=== PATIENT | male | born 1965 | race Caucasian/White ===

== ENCOUNTER 2022-10-09 09:28 | Inpatient (IN) | payer MEDICAID, SELFPAY ==
[2022-10-09] VITALS (212 sets, daily range): BP systolic 58–129; BP diastolic 31–106; PULSE 64–165; RESP 11–35; TEMP 36.5–38.4; O2SAT 86–96
--- NOTE | 2022-10-09 10:00 | DI.RAD_ITS ---
Exam(s) XR CHEST 2V PA LATERAL EXAM: XR CHEST 2V PA LATERAL CLINICAL HISTORY: fever. TECHNIQUE: 2D digital imaging was performed. COMPARISON: No exams were available for comparison FINDINGS: 2 views: Heart size is normal. The mediastinum is not widened. There is a large area of infiltrate in the right lower lobe. No associated pleural effusion evident. The opposite-left lung is clear. IMPRESSION: Large area of infiltrate in the right lower lobe. No obvious pleural effusion. Follow-up to [facility] ion recommended. DATA REPOSITORY: RADIATION DOSE DELIVERED:
--- NOTE | 2022-10-09 10:03 | NUR.NOTE ---
Nursing Note: Assumed care of patient at this time; no nurse to nurse report received
--- NOTE | 2022-10-09 10:09 | ED.GENADUL_ITS ---
Discharge Plan Disposition Patient Disposition: Admit to [facility] Discharge Details Chief Complaint: Fever Clinical Impression: Sepsis, Septic shock, Atrial fibrillation with rapid ventricular response, Hyponatremia, Thrombocytopenia, Acute kidney injury, Pneumonia Admit Date/Time: 10/09/22 13:02 Admit Provider: Tara Weiss Attending Provider: Tara Weiss Primary Care Provider: None,None ED Provider: Lisa Saucedo Medical Decision Making 56yo M denies prior medical conditions including cardiac history, diabetes, lung problems/COPD/ashtma (however poor historian) presenting with patient stated concern for dehydration; noted urine to be dark today and had N/V/D 5 days ago which resolved 2 days ago. Good PO intake and urine output. Non-toxic appearing on arrival, ambulated easily independently into the ED. Febrile to 38.1, vital signs and physical exam otherwise reassuring, no abdominal tenderness (would not pursue imaging/CT), appears well hydrated. Given 1L IVFB. Low suspicion for sepsis on arrival. O2 sat borderline low at 90% (patient is a smoker); denies respiratory symptoms however given fever CXR ordered and independently reviewed, shows right sided infiltrate consistent with pneumonia on my view, agree with radiology read below. Started IV ceftriaxone in the ED. Ambulatory pulse ox with no desaturations. On repeat vital signs slightly tachycardiac at 99; now meeting SIRS/sepsis criteria. Additional 1L IVFB (total 20cc/kg) ordered, blood cultures and lactic added. CBC & CMP with evidence of multiorgan involvement; hyponatremia (128), hyperglycemia in 200's, thrombocytopenia (60), elevated Cr 2.4 (unknown baseline, suspect acute kidney injury). No acidosis, normal bicarb, however gap 14.8. Lactic mildly elevated at 2.7, procal 5.6. Coags normal. Discussed lab findings and imaging with patient and girlfriend at bedside; GF reports patient had tubes in his right chest for a lung infection 1 year ago, patient agrees. He reports he used to have diabetes, not currently medicated. Denies any history of kidney problems. Abdomen remains soft and entirely non- tender, patient continues to report feeling good but appears somewhat diaphoretic, no longer well-appearing. Borderline hypotensive with SBP in 80's. Received a total of 3L of IVF, upon completion of 3rd bolus MAP in high 60's to low 70's. Fluid responsive, would not initiate pressors or central access at this time though should patient may ultimately require should he continue to deteriorate. Discussed with hospitalist; patient accepted to ICU. Broadening antibiotics to doxycycline/zosyn. On reassessment patient in afib with RVR to 130's on monitor; denies chest pain or shortness of breath, now reports history of afib in the past (not on medication currently). EKG afib with rate in 130's, some ST depression in V3-V6. Posterior EKG performed, no ST elevations, no sequela of occluisve NE. Troponins ordered, Dr. Weiss updated. Patient transfered to the unit. Imaging Data Radiologic Study: Imaging: X-Ray Radiologist's impression: IMPRESSION: Focal right lower lobe consolidation consistent with acute bacterial pneumonia. Follow-up to resolution is recommended as clinically warranted. Lab Data Lab results reviewed: Yes I reviewed the patient's lab results. Labs: 10/09/22 12:10 Blood Blood Culture - Pending 10/09/22 11:55 Blood Blood Culture - Pending Laboratory Tests Range/Units 10/09/22 10/09/22 10/09/22 10:20 10:20 10:20 WBC (4.4-10.8) 10^3/uL 15.61 H RBC (4.36-5.78) 10^6/uL 4.82 Hgb (13.5-17.5) g/dL 15.0 Hct (40.0-50.0) % 42.4 MCV (80-95) fL 88 MCH (27.0-33.0) pg 31.1 MCHC (32.0-36.0) % 35.4 RDW (11.8-14.1) % 12.4 Plt Count (130-400) 10^3/uL 60 L MPV (8.0-11.0) fL Immature Gran % 0.0 Neutrophils % 91.0 Band Neutrophils % 1 Lymphocytes % 4.0 Monocytes % 4.0 Eosinophils % 0.0 Basophils % 0.0 Nucleated RBC % (0.0-0.3) % 0.0 Absolute Neutrophils (1.2-6.7) 10^3/uL 14.36 H Absolute Lymphocytes (1.2-3.4) 10^3/uL 0.62 L Absolute Monocytes (0.1-0.8) 10^3/uL 0.62 Absolute Eosinophils (0.0-0.7) 10^3/uL 0.00 Absolute Basophils (0.0-0.2) 10^3/uL 0.00 RBC Morphology Normal PT (9.3-11.0) sec 10.7 INR (0.9-1.1) 1.1 APTT (21.5-31.9) sec 31.2 VBG pH (7.31-7.41) VBG pCO2 (41-51) mmHg VBG pO2 mmHg VBG HCO3 (23-28) mmol/L VBG Total CO2 (24-29) mmol/L VBG O2 Saturation % VBG Base Excess (-2-3) mmol/L VBG Lactate (0.6-1.4) mmol/L Sodium (136-145) mmol/L 128 L Potassium (3.5-5.1) mmol/L 3.2 L Chloride (98-107) mmol/L 90 L Carbon Dioxide (21.0-32.0) mmol/L 23.2 Anion Gap (3-11) mmol/L 14.8 H BUN (7-18) mg/dL 27 H Creatinine (0.70-1.30) mg/dL 2.4 H Est GFR (CKD-EPI 2020) (mL/min/1.73m2) 31.09 Glucose (74-106) mg/dL 215 H Calcium (8.5-10.1) mg/dL 7.7 L Total Bilirubin (0.2-1.0) mg/dL 0.7 AST (15-37) U/L 84 H ALT (16-63) U/L 77 H Alkaline Phosphatase (46-116) U/L 92 Troponin I (<or=60) ng/L Total Protein (6.4-8.2) g/dL 7.7 Albumin (3.4-5.0) g/dL 2.6 L Procalcitonin ng/mL Urine Color (Yellow) Urine Clarity (Clear) Urine pH (5-8) Ur Specific [place] (1.005-1.025) Urine Protein (Negative) mg/dL Urine Ketones (Negative) mg/dL Urine Blood (Negative) Urine Nitrite (Negative) Urine Bilirubin (Negative) Urine Urobilinogen (Up to 0.2) mg/dL Ur Leukocyte Esterase (Negative) Urine RBC (0-2) HPF Urine WBC (0-5) HPF Ur Epithelial Cells (Negative) HPF Urine Crystals (Negative) HPF Urine Bacteria (Negative) HPF Urine Casts (Negative) LPF Urine Mucus (Negative) Ur Culture Indicated? Urine Glucose (Negative) mg/dL Range/Units 10/09/22 10/09/22 10/09/22 10:20 11:29 11:55 WBC (4.4-10.8) 10^3/uL RBC (4.36-5.78) 10^6/uL Hgb (13.5-17.5) g/dL Hct (40.0-50.0) % MCV (80-95) fL MCH (27.0-33.0) pg MCHC (32.0-36.0) % RDW (11.8-14.1) % Plt Count (130-400) 10^3/uL MPV (8.0-11.0) fL Immature Gran % Neutrophils % Band Neutrophils % Lymphocytes % Monocytes % Eosinophils % Basophils % Nucleated RBC % (0.0-0.3) % Absolute Neutrophils (1.2-6.7) 10^3/uL Absolute Lymphocytes (1.2-3.4) 10^3/uL Absolute Monocytes (0.1-0.8) 10^3/uL Absolute Eosinophils (0.0-0.7) 10^3/uL Absolute Basophils (0.0-0.2) 10^3/uL RBC Morphology PT (9.3-11.0) sec INR (0.9-1.1) APTT (21.5-31.9) sec VBG pH (7.31-7.41) VBG pCO2 (41-51) mmHg VBG pO2 mmHg VBG HCO3 (23-28) mmol/L VBG Total CO2 (24-29) mmol/L VBG O2 Saturation % VBG Base Excess (-2-3) mmol/L VBG Lactate (0.6-1.4) mmol/L 2.5 H* Sodium (136-145) mmol/L Potassium (3.5-5.1) mmol/L Chloride (98-107) mmol/L Carbon Dioxide (21.0-32.0) mmol/L Anion Gap (3-11) mmol/L BUN (7-18) mg/dL Creatinine (0.70-1.30) mg/dL Est GFR (CKD-EPI 2020) (mL/min/1.73m2) Glucose (74-106) mg/dL Calcium (8.5-10.1) mg/dL Total Bilirubin (0.2-1.0) mg/dL AST (15-37) U/L ALT (16-63) U/L Alkaline Phosphatase (46-116) U/L Troponin I (<or=60) ng/L Total Protein (6.4-8.2) g/dL Albumin (3.4-5.0) g/dL Procalcitonin ng/mL 5.6 Urine Color (Yellow) Dark Yellow Urine Clarity (Clear) Cloudy Urine pH (5-8) 5.5 Ur Specific [place] (1.005-1.025) >= 1.030 H Urine Protein (Negative) mg/dL >=300 H Urine Ketones (Negative) mg/dL 15 H Urine Blood (Negative) Large H Urine Nitrite (Negative) Negative Urine Bilirubin (Negative) Moderate H Urine Urobilinogen (Up to 0.2) mg/dL 1.0 H Ur Leukocyte Esterase (Negative) Negative Urine RBC (0-2) HPF 10-20 H Urine WBC (0-5) HPF Negative Ur Epithelial Cells (Negative) HPF Rare Urine Crystals (Negative) HPF Negative Urine Bacteria (Negative) HPF Negative Urine Casts (Negative) LPF 20-50 Fine Granular Urine Mucus (Negative) Negative Ur Culture Indicated? No Urine Glucose (Negative) mg/dL 100 H Range/Units 10/09/22 10/09/22 11:55 13:10 WBC (4.4-10.8) 10^3/uL RBC (4.36-5.78) 10^6/uL Hgb (13.5-17.5) g/dL Hct (40.0-50.0) % MCV (80-95) fL MCH (27.0-33.0) pg MCHC (32.0-36.0) % RDW (11.8-14.1) % Plt Count (130-400) 10^3/uL MPV (8.0-11.0) fL Immature Gran % Neutrophils % Band Neutrophils % Lymphocytes % Monocytes % Eosinophils % Basophils % Nucleated RBC % (0.0-0.3) % Absolute Neutrophils (1.2-6.7) 10^3/uL Absolute Lymphocytes (1.2-3.4) 10^3/uL Absolute Monocytes (0.1-0.8) 10^3/uL Absolute Eosinophils (0.0-0.7) 10^3/uL Absolute Basophils (0.0-0.2) 10^3/uL RBC Morphology PT (9.3-11.0) sec INR (0.9-1.1) APTT (21.5-31.9) sec VBG pH (7.31-7.41) 7.41 VBG pCO2 (41-51) mmHg 34 L VBG pO2 mmHg 42 VBG HCO3 (23-28) mmol/L 22 L VBG Total CO2 (24-29) mmol/L 19 L VBG O2 Saturation % 78 VBG Base Excess (-2-3) mmol/L -3 L VBG Lactate (0.6-1.4) mmol/L Sodium (136-145) mmol/L Potassium (3.5-5.1) mmol/L Chloride (98-107) mmol/L Carbon Dioxide (21.0-32.0) mmol/L Anion Gap (3-11) mmol/L BUN (7-18) mg/dL Creatinine (0.70-1.30) mg/dL Est GFR (CKD-EPI 2020) (mL/min/1.73m2) Glucose (74-106) mg/dL Calcium (8.5-10.1) mg/dL Total Bilirubin (0.2-1.0) mg/dL AST (15-37) U/L ALT (16-63) U/L Alkaline Phosphatase (46-116) U/L Troponin I (<or=60) ng/L < 50 Total Protein (6.4-8.2) g/dL Albumin (3.4-5.0) g/dL Procalcitonin ng/mL Urine Color (Yellow) Urine Clarity (Clear) Urine pH (5-8) Ur Specific [place] (1.005-1.025) Urine Protein (Negative) mg/dL Urine Ketones (Negative) mg/dL Urine Blood (Negative) Urine Nitrite (Negative) Urine Bilirubin (Negative) Urine Urobilinogen (Up to 0.2) mg/dL Ur Leukocyte Esterase (Negative) Urine RBC (0-2) HPF Urine WBC (0-5) HPF Ur Epithelial Cells (Negative) HPF Urine Crystals (Negative) HPF Urine Bacteria (Negative) HPF Urine Casts (Negative) LPF Urine Mucus (Negative) Ur Culture Indicated? Urine Glucose (Negative) mg/dL HPI General Mode of arrival: ambulatory . Date/Time Provider Initiated Documentation: 10/09/22 10:06 . Limitations to Documentation: no limitations . Information obtained by: patient . HPI Narrative: 56yo previously healthy male presenting with concern for dehydration. Reports N/V/D 5 days ago which lasted for 3 days. No vomiting or diarrhea in the past 48 hours. Mild diffuse abdominal pain, crampy, no alleviating or aggravating factors. Has been eating and drinking normally. Today urine was dark, prompting presentation to the ED. Reports fever at home, unsure how high. Denies chest pain, shortness of breath, LE edema, bloody vomitus or stool, lightheadedness, syncope, or other concerns. Related Data Home Medications Medication Instructions Recorded Confirmed Unknown [No Known Home Meds] 10/09/22 10/09/22 Allergies Allergy/AdvReac Type Severity Reaction Status Date / Time codeine Allergy Unknown Other (See Unverified 10/09/22 14:05 Comment) General Stated Complaint: Fever ORIANA: 3 Review of Systems Narrative: see HPI PFSH All Active Problems (Updated 10/09/22 @ 14:52 by Lisa Saucedo MD) Sepsis (Acute) Septic shock (Acute) Atrial fibrillation with rapid ventricular response (Acute) Hyponatremia (Acute) Thrombocytopenia (Chronic) Acute kidney injury (Acute) Pneumonia (Acute) Social History Smoking/Tobacco Use Status: Current every day Smoking risk assessment performed?: Yes Housing: house Do you feel safe at home: Yes Do you feel safe in your relationship?: Yes Exam Narrative Exam Narrative: General: Alert, well appearing, well nourished, in no acute distress. Head: Normocephalic, atraumatic Neck: Trachea midline, Neck supple. ENT: MMM. No oropharygeal lesions or exudate. Cardiac: RRR, no murmurs appreciated Resp: No respiratory distress. CTAB. Abd: Soft, non-distended, nontender : No suprapubic tenderness. No CVA tenderness. Extremities: No deformities. No peripheral edema. Neurologic: GCS 15. Moves all extremities freely against gravity Course Vital Signs Vital signs: Vital Signs Temperature 38.4 C H 10/09/22 09:33 Pulse 64 10/09/22 09:33 Respiratory Rate 20 10/09/22 09:33 Blood Pressure 100/53 L 10/09/22 09:33 Pulse Oximetry 90 L 10/09/22 09:33 Temperature 38.4 C H 10/09/22 09:33 Temperature Source Oral 10/09/22 09:33 Pulse 64 10/09/22 09:33 Respiratory Rate 20 10/09/22 09:33 Blood Pressure 100/53 L 10/09/22 09:33 Blood Pressure Position Sitting 10/09/22 09:33 Pulse Oximetry 90 L 10/09/22 09:33 Oxygen Delivery Method Room Air 10/09/22 09:33 Oxygen Flow Rate 0 10/09/22 09:33 Pain Level 5 10/09/22 09:33 Critical Care Time Critical Care Time Critical Care Time: Yes Total Critical Care Time: 34 Attestation: Due to a high probability of clinically significant, life threatening deterioration, the patient required my highest level of preparedness to intervene emergently and I personally spent this critical care time directly and personally managing the patient. This critical care time included obtaining a history; examining the patient; pulse oximetry; ordering and review of studies; arranging urgent treatment with development of a management plan; evaluation of patient's response to treatment; frequent reassessment; and, discussions with other providers. This critical care time was performed to assess and manage the high probability of imminent, life-threatening deterioration that could result in multi-organ failure. It was exclusive of separately billable procedures.
[2022-10-09] MEDS: Acetaminophen 500 MG TAB 1000 MG PO (10:16)
[2022-10-09] MEDS: Normal Saline 1,000 ML 1000 ML IV ×3 (10:20→12:22)
[2022-10-09 10:30] LABS: HCT 42.4 % (40.0-50.0); MCH 31.1 pg (27.0-33.0); MCHC 35.4 % (32.0-36.0); MCV 88 fL (80-95); RBC 4.82 10^6/uL (4.36-5.78); RDW 12.4 % (11.8-14.1); RDW-SD 40.1 fL; WBC 15.61 10^3/uL (4.4-10.8)
[2022-10-09 10:43] LABS: ALT 77 U/L (16-63); AST 84 U/L (15-37); Albumin 2.6 g/dL (3.4-5.0); Alkaline Phosphatase 92 U/L (46-116); Anion Gap 14.8 mmol/L (3-11); BUN 27 mg/dL (7-18); Bilirubin, Total 0.7 mg/dL (0.2-1.0); CO2 23.2 mmol/L (21.0-32.0); CREATININE 2.4 mg/dL (0.70-1.30); Calcium 7.7 mg/dL (8.5-10.1); Chloride 90 mmol/L (98-107); Estimated GFR 31.09 (mL/min/1.73m2); Glucose 215 mg/dL (74-106); Potassium 3.2 mmol/L (3.5-5.1); Sodium 128 mmol/L (136-145); Total Protein 7.7 g/dL (6.4-8.2)
--- NOTE | 2022-10-09 10:46 | DI.VRAD_ITS ---
Addendum created by Braden Horn MD on 10/09/2022 10:48:34 AM EDT: THIS REPORT CONTAINS FINDINGS THAT MAY BE CRITICAL TO PATIENT CARE. The findings were verbally communicated via telephone conference with Lisa Mata at 10:48 AM EDT on 10/09/2022. The findings were acknowledged and understood. Initial report created on 10/09/2022 10:45:52 AM EDT: PROCEDURE INFORMATION: Exam: XR Chest Exam date and time: 10/09/2022 10:30 AM Age: 56 years old Clinical indication: Fever TECHNIQUE: Imaging protocol: Radiologic exam of the chest. Views: 2 views. COMPARISON: No relevant prior studies available. FINDINGS: Lungs: Focal consolidation in the right lower lobe. Pleural spaces: No pneumothorax or large pleural effusion. Heart/Mediastinum: Unremarkable. No cardiomegaly. Bones/joints: Degenerative changes of the spine. IMPRESSION: Focal right lower lobe consolidation consistent with acute bacterial pneumonia. Follow-up to resolution is recommended as clinically warranted. Dictated and Authenticated by: Braden Horn MD. Ordering:ISREAL Gonzalez MD
[2022-10-09] MEDS: cefTRIAXone 1 GM/50 ML BAG IVPB (10:50)
[2022-10-09 10:53] LABS: Absolute Lymphocyte Count 0.62 10^3/uL (1.2-3.4); Absolute Monocyte Count 0.62 10^3/uL (0.1-0.8); Absolute Neutrophil Count 14.36 10^3/uL (1.2-6.7); Bands % 1; Diff Comment Manual Differential; Platelet Count 60 10^3/uL (130-400); RBC Morphology Normal
--- NOTE | 2022-10-09 11:21 | NUR.NOTE ---
Nursing Note: Patient ambulated in hallway with no respiratory complaints; oxygen sat 93% during ambulation. MD notified.
--- NOTE | 2022-10-09 11:38 | NUR.NOTE ---
Nursing Note: Phlebotomy at bedside for re-draw of lactate and draw of blood cultures. notified of patient's last BP of .
[2022-10-09 11:43] LABS: Bilirubin Moderate (Negative); Blood Large (Negative); Clarity Cloudy (Clear); Glucose 100 mg/dL (Negative); Ketones 15 mg/dL (Negative); Leukocyte Esterase Negative (Negative); Nitrite Negative (Negative); Specific Gravity >= 1.030 (1.005-1.025); pH 5.5 (5-8)
[2022-10-09 12:05] LABS: Lactate 2.5 mmol/L (0.6-1.4)
[2022-10-09 12:06] LABS: INR 1.1 (0.9-1.1); PTT Activated 31.2 sec (21.5-31.9); Prothrombin Time 10.7 sec (9.3-11.0)
[2022-10-09 12:07] LABS: Bacteria Negative HPF (Negative); C & S Indicated? No; Crystals Negative HPF (Negative); Epithelial Cells Rare HPF (Negative); Mucus Negative (Negative); WBC Negative HPF (0-5)
[2022-10-09 12:17] LABS: Procalcitonin 5.6 ng/mL
--- NOTE | 2022-10-09 12:30 | RT.EKG_ITS ---
APPROVED REPORT Exam: Resting ECG Reason for Exam: afib Patient Location: E HR:132 bpm ECG Measurements Heart Rate 132 AXIS CA [id number] P [id number] QRSd 80 QRS 52 QT 299 T 252 QTc 444 Conclusion Atrial fibrillation...V-rate 91-167, irreg A-activity ST depressions in V3-V6
--- NOTE | 2022-10-09 12:30 | RT.EKG_ITS ---
APPROVED REPORT Exam: Resting ECG Reason for Exam: tachy Patient Location: E HR:135 bpm ECG Measurements Heart Rate 135 AXIS PA [id number] P [id number] QRSd 85 QRS 47 QT 309 T 240 QTc 463 Conclusion Atrial fibrillation...V-rate 106-156, irreg A-activity
[2022-10-09] MEDS: DOXYCYCLINE 100 MG in Normal Saline 100 ML IVPB ×2 (13:15→23:41)
[2022-10-09 13:30] LABS: pCO2 (Venous) 34 mmHg (41-51); pH (Venous) 7.41 (7.31-7.41); pO2 (Venous) 42 mmHg
[2022-10-09 13:31] LABS: BE (Venous) -3 mmol/L (-2-3); HCO3 (Venous) 22 mmol/L (23-28); O2 Sat (Venous) 78 %; TCO2 (Venous) 19 mmol/L (24-29)
--- NOTE | 2022-10-09 13:33 | HPE_ITS ---
Date of service: 10/09/22 Time of Service: 13:34 Assessment and Plan Assessment and plan (1) Septic shock: Status: Acute Assessment and plan: Due to pneumonia, present on admission. Cover with doxycycline and zosyn. Obtain pneumonia studies. Continue IVF, start on vasopressor - I am choosing phenylephrine given co- existence of rapid Afib. C/s general surgery for central line placement. (2) Aspiration pneumonia: Status: Acute Assessment and plan: As above Abx: doxycycline/zosyn. Suspect that the aspiration event happened due to vomiting due to the gastroenteritis the patient had described. (3) Atrial fibrillation with rapid ventricular response: Status: Acute Assessment and plan: In setting of septic shock. Treat infection. We can try using digoxin since BP cannot tolerate metoprolol. Vasopressor-stauffer, I have picked phenylephrine to diminish the effect on HR. (4) Lactic acidosis: Status: Acute Assessment and plan: In setting of septic shock. Trend. (5) Acute kidney injury: Status: Acute Assessment and plan: In setting of septic shock. I do not know what the patient's baseline Cr is, but it has already started to improve. Monitor w/ IV hydration. Check bladder scans. Consider abebe catheter. (6) Type 2 diabetes mellitus: Status: Acute Assessment and plan: Check A1C. Cover with SSI. (7) Thrombocytopenia: Status: Acute Assessment and plan: I am not sure about the patient's baseline platelet count. Will avoid chemical DVT ppx. Will check B12 level. Could be sequela of sepsis. (8) Hyponatremia: Status: Acute Assessment and plan: In setting of dehydration. Sodium has already improved from 128 to 132 w/ IVF, which we will continue for now. (9) Hypokalemia: Status: Acute Assessment and plan: Replete; replete magnesium. (10) Hypomagnesemia: Status: Acute Assessment and plan: Replete. (11) Discharge planning issues: Status: Acute Assessment and plan: Full code Admit to the ICU. Total Critical Care Time 60 minutes. (12) DVT prophylaxis: Status: Acute Assessment and plan: SCDs. Avoid chemical DVT ppx in setting of thrombocytopenia. History of Present Illness History of Present Illness Chief Complaint: feeling dehydrated, not feeling well Narrative: Mr Merlos is a 56 year old male w/ PMHx of NIDDM2, Afib, GERD, obesity with BMI of 30.9 kg/m2, depression, not on any medications at this time (though he should be taking omeprazole, duloxetine, and aripiprazole) who presented to [facility] stating he was feeling unwell and dehydrated. He states that for about 4-5 days he had abdominal pain, nausea, vomiting, and diarrhea, which he had blamed on food poisoning, but n/v/d and abdominal pain had resolved yesterday. He has noticed a generally poorer UOP and darker urine. The patient was still noticing that he was sweating, and was feeling off balance. On arrival to the ER, he is febrile to 38.4. His ER workup revealed a leucocytosis of 15, a platelet count of 60, a creatinine of 2.4 (no prior), an anion gap of 14.8 with pH of 7.4, blood sugar of 215, and evidence of ketones in the urine. He is hyponatremic and hypokalemic His BP was borderline in the ED despite receiving 2.5 L of IVF. His lactate was 2.5. His CXR revealed RLL pneumonia, presumably due to aspiration. He was initiated on initially ceftriaxone, then upgraded to zosyn + doxycycline. His O2 sat was 90% on RA. He did go into rapid Afib with HR of 130s in the ER. When he received 2.5 mg of IV lopressor, his MAP went down to 58-60. He is being initiated on phenylephrine. Hospitalist admission to the ICU was requested. The patient does not know the name of his PCP. He goes to the [facility]. His pharmacy is [facility] in [facility]. Review of Systems All systems reviewed & are unremarkable except as noted in HPI and below PFSH All Active Problems (Updated 10/09/22 @ 16:47 by Tara Weiss MD) Hypomagnesemia (Acute) Depression (Chronic) GERD (gastroesophageal reflux disease) (Chronic) Lactic acidosis (Acute) Discharge planning issues (Acute) DVT prophylaxis (Acute) Hypokalemia (Acute) Type 2 diabetes mellitus (Acute) Aspiration pneumonia (Acute) Sepsis (Acute) Septic shock (Acute) Atrial fibrillation with rapid ventricular response (Acute) Hyponatremia (Acute) Thrombocytopenia (Acute) Acute kidney injury (Acute) Pneumonia (Acute) Surgical History (Updated 10/09/22 @ 16:37 by Tara Weiss MD) H/O hand surgery bilateral S/P appendectomy S/P right inguinal hernia repair Social History (Updated 10/09/22 @ 16:38 by Tara Weiss MD) Smoking/Tobacco Use Status: Current every day Tobacco Type: cigarettes Smoking packs per day: 1 Smoking cigarettes per day: 20.0 Years smoked: 46 Smoking pack- years: 46.00 Counseling given: provider counseling, support medications, counseling >3 minutes and patient declined Smoking risk assessment performed?: Yes Alcohol Intake: former Drug use: Occasionally Substance use type: marijuana Housing: house Do you feel safe at home: Yes Do you feel safe in your relationship?: Yes Meds Allergies and Home Medications Allergies Allergy/AdvReac Type Severity Reaction Status Date / Time codeine Allergy Unknown Other (See Unverified 10/09/22 14:05 Comment) Home Medications Medication Instructions Recorded Confirmed Type Unknown [No Known Home Meds] 10/09/22 10/09/22 History Exam Narrative Exam Narrative: General: Pleasant forgetful middle-aged male who is A&Ox3, laying comfortably in bed, on RA, [place] Neurological: A&Ox3, [place], no focal deficits Psychiatric: Appears withdrawn, flat affect Skin: tinea pedis B, excoriations R dorsum of the foot, well healed HEENT: Atraumatic, normocephalic, EOMI, MMM, clear oropharynx, no submandibular or cervical lymphadenopathy, no goiter or JVD Cardiovascular: RRR, no m/r/g Lungs: Expiratory wheezing B Gastrointestinal: soft, nontender, nondistended Genitourinary: deferred Extremities: no edema BLEs, 1+ pedal pulses B, no c/c, tinea pedis Results Imaging Imaging Studies: CXR: Large area of infiltrate in the right lower lobe.? No obvious pleural effusion.? Follow-up to resolution recommended. EKG #1: Afib w/ RVR, HR 132, inferolateral T wave inversions and borderline ST depressions. EKG #2: Afib w/ RVR, HR 134, inferolateral T wave inversions still present; ST depressions are not seen in the precordial leads. Labs 10/09/22 10:20 10/09/22 15:25 Labs: Laboratory Results - last 24 hr 07/10/09/22 10/09/22 10:20 10:20 10:20 WBC 15.61 H RBC 4.82 Hgb 15.0 Hct 42.4 MCV 88 MCH 31.1 MCHC 35.4 RDW 12.4 Plt Count 60 L MPV Immature Gran % 0.0 Neutrophils % 91.0 Band Neutrophils % 1 Lymphocytes % 4.0 Monocytes % 4.0 Eosinophils % 0.0 Basophils % 0.0 Nucleated RBC % 0.0 Absolute Neutrophils 14.36 H Absolute Lymphocytes 0.62 L Absolute Monocytes 0.62 Absolute Eosinophils 0.00 Absolute Basophils 0.00 RBC Morphology Normal PT 10.7 INR 1.1 APTT 31.2 VBG pH VBG pCO2 VBG pO2 VBG HCO3 VBG Total CO2 VBG O2 Saturation VBG Base Excess VBG Lactate Sodium 128 L Potassium 3.2 L Chloride 90 L Carbon Dioxide 23.2 Anion Gap 14.8 H BUN 27 H Creatinine 2.4 H Est GFR (CKD-EPI 2020) 31.09 Glucose 215 H Calcium 7.7 L Total Bilirubin 0.7 AST 84 H ALT 77 H Alkaline Phosphatase 92 Total Protein 7.7 Albumin 2.6 L Procalcitonin Urine Color Urine Clarity Urine pH Ur Specific [place] Urine Protein Urine Ketones Urine Blood Urine Nitrite Urine Bilirubin Urine Urobilinogen Ur Leukocyte Esterase Urine RBC Urine WBC Ur Epithelial Cells Urine Crystals Urine Bacteria Urine Casts Urine Mucus Ur Culture Indicated? Urine Glucose 10/09/22 10/09/22 10/09/22 10:20 11:29 11:55 WBC RBC Hgb Hct MCV MCH MCHC RDW Plt Count MPV Immature Gran % Neutrophils % Band Neutrophils % Lymphocytes % Monocytes % Eosinophils % Basophils % Nucleated RBC % Absolute Neutrophils Absolute Lymphocytes Absolute Monocytes Absolute Eosinophils Absolute Basophils RBC Morphology PT INR APTT VBG pH VBG pCO2 VBG pO2 VBG HCO3 VBG Total CO2 VBG O2 Saturation VBG Base Excess VBG Lactate 2.5 H* Sodium Potassium Chloride Carbon Dioxide Anion Gap BUN Creatinine Est GFR (CKD-EPI 2020) Glucose Calcium Total Bilirubin AST ALT Alkaline Phosphatase Total Protein Albumin Procalcitonin 5.6 Urine Color Dark Yellow Urine Clarity Cloudy Urine pH 5.5 Ur Specific [place] >= 1.030 H Urine Protein >=300 H Urine Ketones 15 H Urine Blood Large H Urine Nitrite Negative Urine Bilirubin Moderate H Urine Urobilinogen 1.0 H Ur Leukocyte Esterase Negative Urine RBC 10-20 H Urine WBC Negative Ur Epithelial Cells Rare Urine Crystals Negative Urine Bacteria Negative Urine Casts 20-50 Fine Granular Urine Mucus Negative Ur Culture Indicated? No Urine Glucose 100 H 10/09/22 11:55 WBC RBC Hgb Hct MCV MCH MCHC RDW Plt Count MPV Immature Gran % Neutrophils % Band Neutrophils % Lymphocytes % Monocytes % Eosinophils % Basophils % Nucleated RBC % Absolute Neutrophils Absolute Lymphocytes Absolute Monocytes Absolute Eosinophils Absolute Basophils RBC Morphology PT INR APTT VBG pH 7.41 VBG pCO2 34 L VBG pO2 42 VBG HCO3 22 L VBG Total CO2 19 L VBG O2 Saturation 78 VBG Base Excess -3 L VBG Lactate Sodium Potassium Chloride Carbon Dioxide Anion Gap BUN Creatinine Est GFR (CKD-EPI 2020) Glucose Calcium Total Bilirubin AST ALT Alkaline Phosphatase Total Protein Albumin Procalcitonin Urine Color Urine Clarity Urine pH Ur Specific [place] Urine Protein Urine Ketones Urine Blood Urine Nitrite Urine Bilirubin Urine Urobilinogen Ur Leukocyte Esterase Urine RBC Urine WBC Ur Epithelial Cells Urine Crystals Urine Bacteria Urine Casts Urine Mucus Ur Culture Indicated? Urine Glucose Last Vital Signs Temp 36.9 C 10/09/22 13:23 Pulse 131 H 10/09/22 13:22 Resp 24 10/09/22 13:22 BP 83/54 L 10/09/22 13:22 Pulse Ox 96 10/09/22 13:22 Time Spent Time spent with Patient: 55-74 minutes Time was spent: preparing to see the patient(eg.review tests), obtaining and/or reviewing separately otained hiistory, ordering medications,tests, procedures, referring, communicating with other health career education teacher, indepentently interpreting results, counseling the patient and care coordination
[2022-10-09 13:39] LABS: Troponin I < 50 ng/L (<or=60)
--- NOTE | 2022-10-09 14:05 | NUR.NOTE ---
Nursing Note: Report given to Andrey MCMILLAN in ICU. Patient will be going to room 219 shortly.
[2022-10-09] MEDS: Lactated Ringers 1,000 ML 150 ML IV ×2 (14:19→20:53)
[2022-10-09] MEDS: PIPERACILLIN/TAZO 4.5 GM in Normal Saline 100 ML IVPB ×2 (14:19→19:52)
--- NOTE | 2022-10-09 14:30 | NUR.NOTE ---
Nursing Note: patient taken on stretcher to ICU bed 219 by continuity writer; all belongings with patient. LR infusing as well as zosyn still infusing on transport to ICU.
[2022-10-09] MEDS: Metoprolol 5 MG/5 ML VIAL 2.5 MG IVP (14:53)
[2022-10-09 15:03] LABS: COVID-19 PCR Negative (Negative); Influenza A PCR Negative (Negative); Influenza B PCR Negative (Negative); RSV PCR Negative (Negative)
[2022-10-09 15:08] LABS: Source Nasopharynx
--- NOTE | 2022-10-09 15:36 | NUR.NOTE ---
DIRECTOR COMMERCIAL SALES Andrey Neff, followed [employer] to pharmacy to retrieve 2, 10mg bottles of Phenylephrine to mix in 250ml bag of 0.9NS. Same is reconstituted and hanged at 25mcg/min or 37.5ml/hr for BP of 79/56 with a pamp of 62. Report is given to oncoming RN, Judith Angelo. Both of said nurses have double teamed patient since patient's arrival on unit at 14:45.Nursing Note:
[2022-10-09 15:38] LABS: Lactate 1.9 mmol/L (0.6-1.4)
--- NOTE | 2022-10-09 15:40 | NUR.NOTE ---
MACHINE LONG GOODS HELPER Andrey Neff reconstitutes Phenyephrine and hangs same. Reconstitution of said medication was 10mg of said medication in 250ml of 0.9NS.Nursing Note:
[2022-10-09] MEDS: Potassium Chloride 20 MEQ TABCR 40 MEQ PO (15:46)
[2022-10-09 15:49] LABS: Lab Add On Test DONE
[2022-10-09 15:50] LABS: Troponin I < 50 ng/L (<or=60)
[2022-10-09 15:57] LABS: ALT 62 U/L (16-63); AST 79 U/L (15-37); Alkaline Phosphatase 81 U/L (46-116); Anion Gap 13.5 mmol/L (3-11); BUN 27 mg/dL (7-18); Bilirubin, Total 0.5 mg/dL (0.2-1.0); CO2 20.5 mmol/L (21.0-32.0); CREATININE 2.2 mg/dL (0.70-1.30); Calcium 6.9 mg/dL (8.5-10.1); Chloride 98 mmol/L (98-107); Estimated GFR 34.51 (mL/min/1.73m2); Glucose 210 mg/dL (74-106); Magnesium 1.7 mg/dL (1.8-2.4); Potassium 3.2 mmol/L (3.5-5.1); Sodium 132 mmol/L (136-145); Total Protein 6.4 g/dL (6.4-8.2)
[2022-10-09] MEDS: Digoxin 0.5 MG/2 ML AMP 0.125 MG IVP (16:34)
[2022-10-09] MEDS: Normal Saline Flush 10 ML SYR IVP ×2 (16:35→20:09)
[2022-10-09] MEDS: MAGNESIUM SULFATE 2 GM/50 ML BAG IVPB (16:36)
[2022-10-09] MEDS: Insulin Aspart 300 UNITS/3 ML PEN SC ×3 (16:49→22:51)
[2022-10-09] MEDS: methylPREDNISolone SUCC 125 MG VIAL IVP (17:23)
[2022-10-09] MEDS: Albuterol/Ipratropium 3 ML UPD VIAL UPD ×2 (18:22→23:41)
--- NOTE | 2022-10-09 19:15 | DI.RAD_ITS ---
Exam(s) XR PORTABLE CHEST AP EXAM: XR PORTABLE CHEST AP CLINICAL HISTORY: central line placement. TECHNIQUE: 2D digital imaging was performed. COMPARISON: CR,XR XR CHEST 2V PA LATERAL from 10/09/2022 FINDINGS: Single AP portable view. There is a left subclavian central line in place. Its distal tip is horizontally orientated at the j unction of the innominate vein and SVC. There is no pneumothorax. Left lung is clear. Infiltrate in the right lower lobe is again noted. Small right pleural effusion . Left lung remains clear. IMPRESSION: Persistent right lower lobe infiltrate. Small amount of right pleural fluid. Left subclavian central line as described above. There is no pneumothorax. DATA REPOSITORY: RADIATION DOSE DELIVERED:
--- NOTE | 2022-10-09 19:25 | W.SURGCON ---
Date of service: 10/09/22 Time of Service: 19:25 Assessment and Plan Assessment and plan (1) Septic shock: Status: Acute Assessment and plan: Mr. Merlos is a pleasant 56-year-old gentleman who was admitted with pneumonia and sepsis. He is hypotensive requiring pressors. I was asked to place a central line for better access and for pressors.. I have explained the procedure in detail as well as the risks, benefits and complications. Complications include but are not limited to bleeding, infection, injury to artery and vein, pneumothorax and blood clots. The patient understood these risks and complications and wished to proceed. His questions were entertained and answered to his satisfaction. Please see op note. History of Present Illness Narrative: Mr. Merlos is a pleasant 56-year-old gentleman who was admitted to the intensive care unit by Dr. Weiss for pneumonia. He has had no blood pressure since arriving in the emergency department even with multiple fluid boluses. He is now on pressors. I was asked to place a central line for the patient for these pressors and for better access. When I arrived in the room the patient is sitting up alert. He is coughing but not having any visible shortness of breath. He is not on oxygen. Consults Consult date: 10/09/22 Requesting physician: Tara Weiss [facility] All Active Problems Hypomagnesemia (Acute) Depression (Chronic) GERD (gastroesophageal reflux disease) (Chronic) Lactic acidosis (Acute) Discharge planning issues (Acute) DVT prophylaxis (Acute) Hypokalemia (Acute) Type 2 diabetes mellitus (Acute) Aspiration pneumonia (Acute) Sepsis (Acute) Septic shock (Acute) Atrial fibrillation with rapid ventricular response (Acute) Hyponatremia (Acute) Thrombocytopenia (Acute) Acute kidney injury (Acute) Pneumonia (Acute) Surgical History H/O hand surgery bilateral S/P appendectomy S/P right inguinal hernia repair Social History Smoking/Tobacco Use Status: Current every day Tobacco Type: cigarettes Smoking packs per day: 1 Smoking cigarettes per day: 20.0 Years smoked: 46 Smoking pack-years: 46.00 Counseling given: provider counseling, support medications, counseling >3 minutes and patient declined Smoking risk assessment performed?: Yes Alcohol Intake: former Drug use: Occasionally Substance use type: marijuana Housing: house Do you feel safe at home: Yes Do you feel safe in your relationship?: Yes Exam Const General: cooperative, comfortable and no acute distress Nutritional Appearance: overweight Orientation: alert and oriented x3 HENMT Head: normocephalic and atraumatic Resp Effort & Inspection: normal respiratory effort Results Last Vital Signs Temp 97.7 F 10/09/22 15:03 Pulse 137 H 10/09/22 18:22 Resp 18 10/09/22 18:22 BP 93/70 L 10/09/22 16:34 Pulse Ox 96 10/09/22 18:22 Labs 10/09/22 10:20 10/09/22 15:25 Labs: Laboratory Results - last 24 hr 10/09/22 10/09/22 10/09/22 10:20 10:20 10:20 WBC 15.61 H RBC 4.82 Hgb 15.0 Hct 42.4 MCV 88 MCH 31.1 MCHC 35.4 RDW 12.4 Plt Count 60 L MPV Immature Gran % 0.0 Neutrophils % 91.0 Band Neutrophils % 1 Lymphocytes % 4.0 Monocytes % 4.0 Eosinophils % 0.0 Basophils % 0.0 Nucleated RBC % 0.0 Absolute Neutrophils 14.36 H Absolute Lymphocytes 0.62 L Absolute Monocytes 0.62 Absolute Eosinophils 0.00 Absolute Basophils 0.00 RBC Morphology Normal PT 10.7 INR 1.1 APTT 31.2 VBG pH VBG pCO2 VBG pO2 VBG HCO3 VBG Total CO2 VBG O2 Saturation VBG Base Excess VBG Lactate Sodium 128 L Potassium 3.2 L Chloride 90 L Carbon Dioxide 23.2 Anion Gap 14.8 H BUN 27 H Creatinine 2.4 H Est GFR (CKD-EPI 2020) 31.09 Glucose 215 H Calcium 7.7 L Magnesium Total Bilirubin 0.7 AST 84 H ALT 77 H Alkaline Phosphatase 92 Troponin I Total Protein 7.7 Albumin 2.6 L Procalcitonin Urine Color Urine Clarity Urine pH Ur Specific [place] Urine Protein Urine Ketones Urine Blood Urine Nitrite Urine Bilirubin Urine Urobilinogen Ur Leukocyte Esterase Urine RBC Urine WBC Ur Epithelial Cells Urine Crystals Urine Bacteria Urine Casts Urine Mucus Ur Culture Indicated? Urine Glucose COVID-19 Source SARS-CoV-2 (PCR) Influenza Type A (PCR) Influenza Type B (PCR) RSV (PCR) Add-On Test Request 10/09/22 10/09/22 10/09/22 10:20 11:29 11:55 WBC RBC Hgb Hct MCV MCH MCHC RDW Plt Count MPV Immature Gran % Neutrophils % Band Neutrophils % Lymphocytes % Monocytes % Eosinophils % Basophils % Nucleated RBC % Absolute Neutrophils Absolute Lymphocytes Absolute Monocytes Absolute Eosinophils Absolute Basophils RBC Morphology PT INR APTT VBG pH VBG pCO2 VBG pO2 VBG HCO3 VBG Total CO2 VBG O2 Saturation VBG Base Excess VBG Lactate 2.5 H* Sodium Potassium Chloride Carbon Dioxide Anion Gap BUN Creatinine Est GFR (CKD-EPI 2020) Glucose Calcium Magnesium Total Bilirubin AST ALT Alkaline Phosphatase Troponin I Total Protein Albumin Procalcitonin 5.6 Urine Color Dark Yellow Urine Clarity Cloudy Urine pH 5.5 Ur Specific [place] >= 1.030 H Urine Protein >=300 H Urine Ketones 15 H Urine Blood Large H Urine Nitrite Negative Urine Bilirubin Moderate H Urine Urobilinogen 1.0 H Ur Leukocyte Esterase Negative Urine RBC 10-20 H Urine WBC Negative Ur Epithelial Cells Rare Urine Crystals Negative Urine Bacteria Negative Urine Casts 20-50 Fine Granular Urine Mucus Negative Ur Culture Indicated? No Urine Glucose 100 H COVID-19 Source SARS-CoV-2 (PCR) Influenza Type A (PCR) Influenza Type B (PCR) RSV (PCR) Add-On Test Request 10/09/22 10/09/22 10/09/22 11:55 13:10 14:10 WBC RBC Hgb Hct MCV MCH MCHC RDW Plt Count MPV Immature Gran % Neutrophils % Band Neutrophils % Lymphocytes % Monocytes % Eosinophils % Basophils % Nucleated RBC % Absolute Neutrophils Absolute Lymphocytes Absolute Monocytes Absolute Eosinophils Absolute Basophils RBC Morphology PT INR APTT VBG pH 7.41 VBG pCO2 34 L VBG pO2 42 VBG HCO3 22 L VBG Total CO2 19 L VBG O2 Saturation 78 VBG Base Excess -3 L VBG Lactate Sodium Potassium Chloride Carbon Dioxide Anion Gap BUN Creatinine Est GFR (CKD-EPI 2020) Glucose Calcium Magnesium Total Bilirubin AST ALT Alkaline Phosphatase Troponin I < 50 Total Protein Albumin Procalcitonin Urine Color Urine Clarity Urine pH Ur Specific [place] Urine Protein Urine Ketones Urine Blood Urine Nitrite Urine Bilirubin Urine Urobilinogen Ur Leukocyte Esterase Urine RBC Urine WBC Ur Epithelial Cells Urine Crystals Urine Bacteria Urine Casts Urine Mucus Ur Culture Indicated? Urine Glucose COVID-19 Source Nasopharynx SARS-CoV-2 (PCR) Negative Influenza Type A (PCR) Negative Influenza Type B (PCR) Negative RSV (PCR) Negative Add-On Test Request 10/09/22 10/09/22 10/09/22 15:25 15:25 15:25 WBC RBC Hgb Hct MCV MCH MCHC RDW Plt Count MPV Immature Gran % Neutrophils % Band Neutrophils % Lymphocytes % Monocytes % Eosinophils % Basophils % Nucleated RBC % Absolute Neutrophils Absolute Lymphocytes Absolute Monocytes Absolute Eosinophils Absolute Basophils RBC Morphology PT INR APTT VBG pH VBG pCO2 VBG pO2 VBG HCO3 VBG Total CO2 VBG O2 Saturation VBG Base Excess VBG Lactate 1.9 H Sodium 132 L Potassium 3.2 L Chloride 98 Carbon Dioxide 20.5 L Anion Gap 13.5 H BUN 27 H Creatinine 2.2 H Est GFR (CKD-EPI 2020) 34.51 Glucose 210 H Calcium 6.9 L Magnesium Total Bilirubin 0.5 AST 79 H ALT 62 Alkaline Phosphatase 81 Troponin I < 50 Total Protein 6.4 Albumin 2.0 L Procalcitonin Urine Color Urine Clarity Urine pH Ur Specific [place] Urine Protein Urine Ketones Urine Blood Urine Nitrite Urine Bilirubin Urine Urobilinogen Ur Leukocyte Esterase Urine RBC Urine WBC Ur Epithelial Cells Urine Crystals Urine Bacteria Urine Casts Urine Mucus Ur Culture Indicated? Urine Glucose COVID-19 Source SARS-CoV-2 (PCR) Influenza Type A (PCR) Influenza Type B (PCR) RSV (PCR) Add-On Test Request 10/09/22 10/09/22 15:25 Unknown WBC RBC Hgb Hct MCV MCH MCHC RDW Plt Count MPV Immature Gran % Neutrophils % Band Neutrophils % Lymphocytes % Monocytes % Eosinophils % Basophils % Nucleated RBC % Absolute Neutrophils Absolute Lymphocytes Absolute Monocytes Absolute Eosinophils Absolute Basophils RBC Morphology PT INR APTT VBG pH VBG pCO2 VBG pO2 VBG HCO3 VBG Total CO2 VBG O2 Saturation VBG Base Excess VBG Lactate Sodium Potassium Chloride Carbon Dioxide Anion Gap BUN Creatinine Est GFR (CKD-EPI 2020) Glucose Calcium Magnesium 1.7 L Total Bilirubin AST ALT Alkaline Phosphatase Troponin I Total Protein Albumin Procalcitonin Urine Color Urine Clarity Urine pH Ur Specific [place] Urine Protein Urine Ketones Urine Blood Urine Nitrite Urine Bilirubin Urine Urobilinogen Ur Leukocyte Esterase Urine RBC Urine WBC Ur Epithelial Cells Urine Crystals Urine Bacteria Urine Casts Urine Mucus Ur Culture Indicated? Urine Glucose COVID-19 Source SARS-CoV-2 (PCR) Influenza Type A (PCR) Influenza Type B (PCR) RSV (PCR) Add-On Test Request DONE
[2022-10-09] MEDS: Normal Saline-STERILE FIELD 0.9% 10 ML SYR (19:50)
--- NOTE | 2022-10-09 19:51 | W.PM.OP ---
Date of service: 10/09/22 Time of Service: 19:51 Operative Note Operative Note DATE OF PROCEDURE: 10/09/22 PRE-OP DIAGNOSIS: hypotension, sepsis POST-OP DIAGNOSIS: same PROCEDURE: Left Subclavian Central line placement SURGEON: Angelique Dickerson ANESTHESIA TYPE: Local By Surgeon Refer to Anesthesia Record ESTIMATED BLOOD LOSS: 3 COMPLICATIONS: None Patient was transported to: no change Patient's condition: critical Indications: Mr. Merlos is a pleasant 56-year-old gentleman who was admitted with pneumonia, hypotension and sepsis. I was asked by the hospitalist to place a central line for better access and for his pressor infusion. The procedure was described to the patient in detail as well as the risks, benefits and complications. He seemed to understand the complications and risks and wished to proceed. Procedure Description: After informed consent was obtained the patient was placed in a supine position on her ICU bed. The head of the bed was lowered. A time out was done and her name, and procedure to be done were reviewed. Sharps were counted. The left chest wall was then prepped and draped in a standard fashion with chlorhexidine. Next 5 cc of 1% Lidocaine was injected into the dermis and subcutaneous tissue along the left clavicle. The introducer needle was then slowly advanced into the subclavian vein. Once I was able to pull venous blood into the syringe, the syringe was removed from the needle. The guidewire was then placed easily without resistance into the subclavian vein. The needle was removed. A small incision was made with an 11 blade next to the guidewire. The dilator was then placed over the guidewire into the vein. The dilator was removed and the tripple lumen catheter was placed over the guidewire into the vein to 16 cm. The guidewire was removed and needless valves were placed on each lumen. Each lumen was then aspirated and flushed with sterile saline. The Central line was then secured in place with 2-0 silk suture. The skin was cleaned and dried and an antibiotic wheel was applied at the skin entrance. An occlusive dressing was then applied. The drapes were removed. Sharps were counted and were correct at the end of the procedure. The patient tolerated the procedure well. Stat CXR was ordered and read by me. NO pneumothorax was noted. Central line was in good position.
[2022-10-09] MEDS: Metoprolol 5 MG/5 ML VIAL IVP (20:12)
--- NOTE | 2022-10-09 20:17 | DI.VRAD_ITS ---
PROCEDURE INFORMATION: Exam: XR Chest Exam date and time: 10/09/2022 7:45 PM Age: 56 years old Clinical indication: Other: Central line placement TECHNIQUE: Imaging protocol: Radiologic exam of the chest. Views: 1 view. COMPARISON: XR CHEST 2V PA LATERAL 10/09/2022 10:30 AM FINDINGS: Tubes, catheters and devices: Left subclavian vein central venous line. Tip is at the junction of the innominate vein and superior vena cava. Lungs: Airspace consolidation of the right lower lobe consistent with a right lower lobe pneumonia. No significant change since earlier x-ray 9 hours ago. Left lung remains clear Pleural spaces: Small right pleural effusion. No pneumothorax. Heart/Mediastinum: Normal heart size. No mediastinal widening. Bones/joints: Degenerative thoracic spine features. IMPRESSION: 1. Left subclavian central line in position. No pneumothorax. 2. Right lower lobe pneumonia and small right pleural effusion. Dictated and Authenticated by: Orlando Dueñas MD. Ordering:DIVYA Merino MD
[2022-10-09 20:21] LABS: Lactate 1.9 mmol/L (0.6-1.4)
[2022-10-10] VITALS (86 sets, daily range): BP systolic 67–116; BP diastolic 31–82; PULSE 62–157; RESP 4–33; TEMP 36.4–37; O2SAT 85–93
[2022-10-10] MEDS: PIPERACILLIN/TAZO 4.5 GM in Normal Saline 100 ML IVPB ×4 (01:20→18:55)
[2022-10-10] MEDS: Metoprolol 5 MG/5 ML VIAL IVP (02:48)
[2022-10-10] MEDS: Lactated Ringers 1,000 ML 150 ML IV (03:10)
[2022-10-10 06:36] LABS: HCT 37.3 % (40.0-50.0); HGB 12.8 g/dL (13.5-17.5); MCH 30.7 pg (27.0-33.0); MCHC 34.3 % (32.0-36.0); MCV 89 fL (80-95); RBC 4.17 10^6/uL (4.36-5.78); RDW-SD 42.7 fL; WBC 17.71 10^3/uL (4.4-10.8)
[2022-10-10 06:50] LABS: Anion Gap 13.6 mmol/L (3-11); BUN 26 mg/dL (7-18); CO2 21.4 mmol/L (21.0-32.0); CREATININE 1.8 mg/dL (0.70-1.30); Calcium 7.3 mg/dL (8.5-10.1); Chloride 101 mmol/L (98-107); Glucose 256 mg/dL (74-106); Magnesium 2.3 mg/dL (1.8-2.4); Potassium 3.5 mmol/L (3.5-5.1); Sodium 136 mmol/L (136-145)
[2022-10-10 06:58] LABS: Absolute Lymphocyte Count 0.53 10^3/uL (1.2-3.4); Absolute Monocyte Count 0.35 10^3/uL (0.1-0.8); Absolute Neutrophil Count 16.82 10^3/uL (1.2-6.7); Bands % 3; Diff Comment Manual Differential; Platelet Count 73 10^3/uL (130-400); RBC Morphology Normal
[2022-10-10 07:06] LABS: C-Reactive Protein > 25.00 mg/dL (0.0-0.3)
[2022-10-10 07:20] LABS: Vitamin B12 459 pg/mL (193-986)
[2022-10-10 07:37] LABS: Hemoglobin A1C 6.4 % (<5.7)
[2022-10-10] MEDS: predniSONE 20 MG TAB 40 MG PO (07:53)
[2022-10-10] MEDS: Insulin Aspart 300 UNITS/3 ML PEN SC ×4 (07:53→21:03)
[2022-10-10] MEDS: Omeprazole 20 MG CAPCR 40 MG PO (07:53)
[2022-10-10] MEDS: Ketoconazole 2% CREAM 15 GM TUBE TP (07:57)
--- NOTE | 2022-10-10 08:52 | W.PM.PROGNOT ---
Date of Service Date of service: 10/10/22 Time of Service: 08:52 Assessment and Plan Assessment and plan (1) Septic shock: Status: Acute Assessment and plan: Due to pneumonia, present on admission. Blood cx pending. Continue doxycycline and zosyn. Given persistent pressor requirement, will add vanco and test for MRSA nares. Await urine strep and legionella antigens, sputum for mycoplasma and sputum C&S. Continue IVF, wean phenylephrine as tolerated. s/p L subclavian CVL - placed on 10/09/22. (2) Aspiration pneumonia: Status: Acute Assessment and plan: As above Suspect that the aspiration event happened due to vomiting due to the gastroenteritis the patient had described. Encourage pulmonary toilet. (3) Atrial fibrillation with rapid ventricular response: Status: Acute Assessment and plan: In setting of septic shock. Treat infection. Will give 2nd dose of digoxin. D/c metoprolol - BP cannot tolerate. Pressor-stauffer, phenylephrine causes less tachycardia. (4) Diarrhea: Status: Acute Assessment and plan: Check stool for C. diff and bacterial pathogens. (5) Lactic acidosis: Status: Acute Assessment and plan: In setting of septic shock. Repeating this am. Improving. (6) Acute kidney injury: Status: Acute Assessment and plan: In setting of septic shock. Improving. I do not know what the patient's baseline Cr is. Monitor w/ IV hydration. Clinically he is still dry. Has a abebe (placed in the ED). (7) Type 2 diabetes mellitus: Status: Acute Assessment and plan: A1C 6.4. Continue a carb consistent diet. Cover with SSI. (8) Thrombocytopenia: Status: Acute Assessment and plan: Improving. I am not sure about the patient's baseline platelet count. Will avoid chemical DVT ppx. B12 level borderline. Will put on low dose repletion. Could be sequela of sepsis. (9) Hyponatremia: Status: Acute Assessment and plan: In setting of dehydration. Improving. Continue IVF. (10) Hypokalemia: Status: Resolved Assessment and plan: Recheck in am. (11) Hypomagnesemia: Status: Resolved Assessment and plan: Recheck in am. (12) Discharge planning issues: Status: Acute Assessment and plan: Full code Keep in ICU. Total Critical Care Time 45 minutes. (13) DVT prophylaxis: Status: Acute Assessment and plan: SCDs. Avoid chemical DVT ppx in setting of thrombocytopenia. Subjective Subjective Interval history since last seen: Denies dizziness, CP, SOB, reports a nonproductive cough, denies n/v/abdominal pain. Is having diarrhea - watery, brown. Attempting to wean off phenylephrine this morning. Did spent the night on it. On RA. Still thirsty. Exam Narrative Exam Narrative: General: A&Ox3, NAD, on RA, [place] HEENT: EOMI, dry MM Cardiovascular: irregularly irregular rhythm, no m/r/g Lungs: Expiratory wheezing B Gastrointestinal: soft, nontender, nondistended Genitourinary: has a abebe - clear yellow urine is draining Extremities: no edema BLEs Objective Last Vital Signs Temp 36.6 C 10/10/22 04:00 Pulse 105 H 10/10/22 07:00 Resp 23 10/10/22 07:01 BP 116/66 10/10/22 07:00 Pulse Ox 92 10/10/22 06:31 Laboratory Results - last 24 hr 10/09/22 10/09/22 10/09/22 10:20 10:20 10:20 WBC 15.61 H RBC 4.82 Hgb 15.0 Hct 42.4 MCV 88 MCH 31.1 MCHC 35.4 RDW 12.4 Plt Count 60 L MPV Immature Gran % 0.0 Neutrophils % 91.0 Band Neutrophils % 1 Lymphocytes % 4.0 Monocytes % 4.0 Eosinophils % 0.0 Basophils % 0.0 Nucleated RBC % 0.0 Absolute Neutrophils 14.36 H Absolute Lymphocytes 0.62 L Absolute Monocytes 0.62 Absolute Eosinophils 0.00 Absolute Basophils 0.00 RBC Morphology Normal PT 10.7 INR 1.1 APTT 31.2 VBG pH VBG pCO2 VBG pO2 VBG HCO3 VBG Total CO2 VBG O2 Saturation VBG Base Excess VBG Lactate Sodium 128 L Potassium 3.2 L Chloride 90 L Carbon Dioxide 23.2 Anion Gap 14.8 H BUN 27 H Creatinine 2.4 H Est GFR (CKD-EPI 2020) 31.09 Glucose 215 H Hemoglobin A1c Calcium 7.7 L Magnesium Total Bilirubin 0.7 AST 84 H ALT 77 H Alkaline Phosphatase 92 Troponin I C-Reactive Protein Total Protein 7.7 Albumin 2.6 L Vitamin B12 Procalcitonin Urine Color Urine Clarity Urine pH Ur Specific [place] Urine Protein Urine Ketones Urine Blood Urine Nitrite Urine Bilirubin Urine Urobilinogen Ur Leukocyte Esterase Urine RBC Urine WBC Ur Epithelial Cells Urine Crystals Urine Bacteria Urine Casts Urine Mucus Ur Culture Indicated? Urine Glucose COVID-19 Source SARS-CoV-2 (PCR) Influenza Type A (PCR) Influenza Type B (PCR) RSV (PCR) Add-On Test Request 10/09/22 10/09/22 10/09/22 10:20 11:29 11:55 WBC RBC Hgb Hct MCV MCH MCHC RDW Plt Count MPV Immature Gran % Neutrophils % Band Neutrophils % Lymphocytes % Monocytes % Eosinophils % Basophils % Nucleated RBC % Absolute Neutrophils Absolute Lymphocytes Absolute Monocytes Absolute Eosinophils Absolute Basophils RBC Morphology PT INR APTT VBG pH VBG pCO2 VBG pO2 VBG HCO3 VBG Total CO2 VBG O2 Saturation VBG Base Excess VBG Lactate 2.5 H* Sodium Potassium Chloride Carbon Dioxide Anion Gap BUN Creatinine Est GFR (CKD-EPI 2020) Glucose Hemoglobin A1c Calcium Magnesium Total Bilirubin AST ALT Alkaline Phosphatase Troponin I C-Reactive Protein Total Protein Albumin Vitamin B12 Procalcitonin 5.6 Urine Color Dark Yellow Urine Clarity Cloudy Urine pH 5.5 Ur Specific [place] >= 1.030 H Urine Protein >=300 H Urine Ketones 15 H Urine Blood Large H Urine Nitrite Negative Urine Bilirubin Moderate H Urine Urobilinogen 1.0 H Ur Leukocyte Esterase Negative Urine RBC 10-20 H Urine WBC Negative Ur Epithelial Cells Rare Urine Crystals Negative Urine Bacteria Negative Urine Casts 20-50 Fine Granular Urine Mucus Negative Ur Culture Indicated? No Urine Glucose 100 H COVID-19 Source SARS-CoV-2 (PCR) Influenza Type A (PCR) Influenza Type B (PCR) RSV (PCR) Add-On Test Request 10/09/22 10/09/22 10/09/22 11:55 13:10 14:10 WBC RBC Hgb Hct MCV MCH MCHC RDW Plt Count MPV Immature Gran % Neutrophils % Band Neutrophils % Lymphocytes % Monocytes % Eosinophils % Basophils % Nucleated RBC % Absolute Neutrophils Absolute Lymphocytes Absolute Monocytes Absolute Eosinophils Absolute Basophils RBC Morphology PT INR APTT VBG pH 7.41 VBG pCO2 34 L VBG pO2 42 VBG HCO3 22 L VBG Total CO2 19 L VBG O2 Saturation 78 VBG Base Excess -3 L VBG Lactate Sodium Potassium Chloride Carbon Dioxide Anion Gap BUN Creatinine Est GFR (CKD-EPI 2020) Glucose Hemoglobin A1c Calcium Magnesium Total Bilirubin AST ALT Alkaline Phosphatase Troponin I < 50 C-Reactive Protein Total Protein Albumin Vitamin B12 Procalcitonin Urine Color Urine Clarity Urine pH Ur Specific [place] Urine Protein Urine Ketones Urine Blood Urine Nitrite Urine Bilirubin Urine Urobilinogen Ur Leukocyte Esterase Urine RBC Urine WBC Ur Epithelial Cells Urine Crystals Urine Bacteria Urine Casts Urine Mucus Ur Culture Indicated? Urine Glucose COVID-19 Source Nasopharynx SARS-CoV-2 (PCR) Negative Influenza Type A (PCR) Negative Influenza Type B (PCR) Negative RSV (PCR) Negative Add-On Test Request 10/09/22 10/09/22 10/09/22 15:25 15:25 15:25 WBC RBC Hgb Hct MCV MCH MCHC RDW Plt Count MPV Immature Gran % Neutrophils % Band Neutrophils % Lymphocytes % Monocytes % Eosinophils % Basophils % Nucleated RBC % Absolute Neutrophils Absolute Lymphocytes Absolute Monocytes Absolute Eosinophils Absolute Basophils RBC Morphology PT INR APTT VBG pH VBG pCO2 VBG pO2 VBG HCO3 VBG Total CO2 VBG O2 Saturation VBG Base Excess VBG Lactate 1.9 H Sodium 132 L Potassium 3.2 L Chloride 98 Carbon Dioxide 20.5 L Anion Gap 13.5 H BUN 27 H Creatinine 2.2 H Est GFR (CKD-EPI 2020) 34.51 Glucose 210 H Hemoglobin A1c Calcium 6.9 L Magnesium Total Bilirubin 0.5 AST 79 H ALT 62 Alkaline Phosphatase 81 Troponin I < 50 C-Reactive Protein Total Protein 6.4 Albumin 2.0 L Vitamin B12 Procalcitonin Urine Color Urine Clarity Urine pH Ur Specific [place] Urine Protein Urine Ketones Urine Blood Urine Nitrite Urine Bilirubin Urine Urobilinogen Ur Leukocyte Esterase Urine RBC Urine WBC Ur Epithelial Cells Urine Crystals Urine Bacteria Urine Casts Urine Mucus Ur Culture Indicated? Urine Glucose COVID-19 Source SARS-CoV-2 (PCR) Influenza Type A (PCR) Influenza Type B (PCR) RSV (PCR) Add-On Test Request 10/09/22 10/09/22 10/09/22 15:25 20:13 Unknown WBC RBC Hgb Hct MCV MCH MCHC RDW Plt Count MPV Immature Gran % Neutrophils % Band Neutrophils % Lymphocytes % Monocytes % Eosinophils % Basophils % Nucleated RBC % Absolute Neutrophils Absolute Lymphocytes Absolute Monocytes Absolute Eosinophils Absolute Basophils RBC Morphology PT INR APTT VBG pH VBG pCO2 VBG pO2 VBG HCO3 VBG Total CO2 VBG O2 Saturation VBG Base Excess VBG Lactate 1.9 H Sodium Potassium Chloride Carbon Dioxide Anion Gap BUN Creatinine Est GFR (CKD-EPI 2020) Glucose Hemoglobin A1c Calcium Magnesium 1.7 L Total Bilirubin AST ALT Alkaline Phosphatase Troponin I C-Reactive Protein Total Protein Albumin Vitamin B12 Procalcitonin Urine Color Urine Clarity Urine pH Ur Specific [place] Urine Protein Urine Ketones Urine Blood Urine Nitrite Urine Bilirubin Urine Urobilinogen Ur Leukocyte Esterase Urine RBC Urine WBC Ur Epithelial Cells Urine Crystals Urine Bacteria Urine Casts Urine Mucus Ur Culture Indicated? Urine Glucose COVID-19 Source SARS-CoV-2 (PCR) Influenza Type A (PCR) Influenza Type B (PCR) RSV (PCR) Add-On Test Request DONE 10/10/22 10/10/22 10/10/22 05:58 05:58 05:58 WBC 17.71 H RBC 4.17 L Hgb 12.8 L D Hct 37.3 L MCV 89 MCH 30.7 MCHC 34.3 RDW 13.0 Plt Count 73 L MPV Immature Gran % 0.0 Neutrophils % 92.0 Band Neutrophils % 3 Lymphocytes % 3.0 Monocytes % 2.0 Eosinophils % 0.0 Basophils % 0.0 Nucleated RBC % 0.0 Absolute Neutrophils 16.82 H Absolute Lymphocytes 0.53 L Absolute Monocytes 0.35 Absolute Eosinophils 0.00 Absolute Basophils 0.00 RBC Morphology Normal PT INR APTT VBG pH VBG pCO2 VBG pO2 VBG HCO3 VBG Total CO2 VBG O2 Saturation VBG Base Excess VBG Lactate Sodium 136 Potassium 3.5 Chloride 101 Carbon Dioxide 21.4 Anion Gap 13.6 H BUN 26 H Creatinine 1.8 H Est GFR (CKD-EPI 2020) 43.90 Glucose 256 H Hemoglobin A1c 6.4 H Calcium 7.3 L Magnesium 2.3 Total Bilirubin AST ALT Alkaline Phosphatase Troponin I C-Reactive Protein > 25.00 H Total Protein Albumin Vitamin B12 Procalcitonin Urine Color Urine Clarity Urine pH Ur Specific [place] Urine Protein Urine Ketones Urine Blood Urine Nitrite Urine Bilirubin Urine Urobilinogen Ur Leukocyte Esterase Urine RBC Urine WBC Ur Epithelial Cells Urine Crystals Urine Bacteria Urine Casts Urine Mucus Ur Culture Indicated? Urine Glucose COVID-19 Source SARS-CoV-2 (PCR) Influenza Type A (PCR) Influenza Type B (PCR) RSV (PCR) Add-On Test Request 10/10/22 05:58 WBC RBC Hgb Hct MCV MCH MCHC RDW Plt Count MPV Immature Gran % Neutrophils % Band Neutrophils % Lymphocytes % Monocytes % Eosinophils % Basophils % Nucleated RBC % Absolute Neutrophils Absolute Lymphocytes Absolute Monocytes Absolute Eosinophils Absolute Basophils RBC Morphology PT INR APTT VBG pH VBG pCO2 VBG pO2 VBG HCO3 VBG Total CO2 VBG O2 Saturation VBG Base Excess VBG Lactate Sodium Potassium Chloride Carbon Dioxide Anion Gap BUN Creatinine Est GFR (CKD-EPI 2020) Glucose Hemoglobin A1c Calcium Magnesium Total Bilirubin AST ALT Alkaline Phosphatase Troponin I C-Reactive Protein Total Protein Albumin Vitamin B12 459 Procalcitonin Urine Color Urine Clarity Urine pH Ur Specific [place] Urine Protein Urine Ketones Urine Blood Urine Nitrite Urine Bilirubin Urine Urobilinogen Ur Leukocyte Esterase Urine RBC Urine WBC Ur Epithelial Cells Urine Crystals Urine Bacteria Urine Casts Urine Mucus Ur Culture Indicated? Urine Glucose COVID-19 Source SARS-CoV-2 (PCR) Influenza Type A (PCR) Influenza Type B (PCR) RSV (PCR) Add-On Test Request Multi-Disciplinary Checklist Lines/Tubes CENTRAL LINE: yes, Central Line Day#: 1 Note: inserted 10/09 ARTERIAL LINE: no ABEBE: yes, Abebe Day#: 1 Note: inserted 10/09/22 in the ER ENDOTRACHEAL TUBE: no ICU Maintenance GLUCOSE 140-180mg/dL: no, Reason/Intervention: starting basal insulin NUTRITION AT GOAL: yes PRESSURE ULCER: no RESTRAINTS: no ANTIBIOTICS(if yes, consider Stewardship): Yes Social Issues FAMILY UPDATED: no, Reason/Intervention: THe patient is able to update family; also, no one has called. PT/OT: no, Reason/Intervention: Not yet clinically appropriate as he is on pressors. GOALS/DISPOSITION/[place] LINE TIER: yes CODE STATUS: Full Prophylaxis DVT PROPHYLAXIS: yes GI PROPHYLAXIS: yes, Indication: on steroids. Time Spent with Patient Time Spent with Patient: 35-49 minutes Time was spent: preparing to see the patient(eg.review tests), obtaining and/or reviewing separately otained hiistory, ordering medications,tests, procedures, referring, communicating with other health eye care professional, indepentently interpreting results, counseling the patient and care coordination
--- NOTE | 2022-10-10 08:57 | PDOC.CMIN ---
Date of service: 10/10/22 Time of Service: 08:57 Care Management Initial Assmt Initial Assessment REASON FOR HOSPITALIZATION:: sepsis and pneumonia PREVIOUS FUNCTIONAL STATUS/SOCIAL/FAMILY SUPPORTS:: Shania has been living in restorative justice housing in [facility] since mid-August. He is currently seeking employment. In the past he has done logging, construction and farming. Shania had 4 children but both of his sons this year. One son committed suicide and the other overdosed. He has a daughter in [facility] that he sees regularly and who is supportive and another daughter in [place]. Shania is independent at baseline and does not receive any community services other than those provided by the correctional system. CURRENT FUNCTIONAL STATUS:: Shania was sitting up in bed in the ICU when CM met with him. He was polite but guarded in his responses. Shania shared that he was released from senior care in August. He has been looking for a job but has been unsuccessful in finding one. He identified his gunnery/ordnance officer, girlfriend and daughter as his main supports. Shania did state that he is feeling much better than when he was first admitted. Clinically, he still requires ICU level of care. His vasopressors were discontinued this morning and his systolic blood pressure has been maintaining in the mid 90s to low 100s. His oxygen saturation levels have been between 88 and 92 on room air. Shania has been afebrile for the past 24 hours however his WBC has increased from 15.61 to 17.71. Blood cultures drawn yesterday are negative to date. ADVANCE DIRECTIVES:: Shania does not have advanced directives and is not interested in completing them. Has patient been provided with info about the portal/API?: Yes Did the patient sign up for the portal?: No CODE STATUS:: Full Code INSURANCE COVERAGE / FINANCIAL ISSUES:: Medicaid of [place] CURRENT HOME/COMMUNITY SERVICES/EQUIPMENT:: lives in restorative justice housing PRIMARY CARE PHYSICIAN:: none POTENTIAL DISCHARGE NEEDS:: establish with local PCP PATIENT/FAMILY EDUCATION NEEDS:: review discharge instructions, limitations, diet, medications, follow up plan, discuss Ask Me Three TRANSPORTATION:: via private vehicle PLAN:: Anticipate shania will be discharged home when medically cleared with no additional services. He will establish care with a local provider and transport with family. CM will follow and assess for any discharge planning concerns. PFSH All Active Problems (Updated 10/10/22 @ 09:04 by Tara Weiss MD) Diarrhea (Acute) Depression (Chronic) GERD (gastroesophageal reflux disease) (Chronic) Lactic acidosis (Acute) Discharge planning issues (Acute) DVT prophylaxis (Acute) Type 2 diabetes mellitus (Acute) Aspiration pneumonia (Acute) Sepsis (Acute) Septic shock (Acute) Atrial fibrillation with rapid ventricular response (Acute) Hyponatremia (Acute) Thrombocytopenia (Acute) Acute kidney injury (Acute) Pneumonia (Acute) Surgical History H/O hand surgery bilateral S/P appendectomy S/P right inguinal hernia repair Social History Smoking/Tobacco Use Status: Current every day Tobacco Type: cigarettes Smoking packs per day: 1 Smoking cigarettes per day: 20.0 Years smoked: 46 Smoking pack-years: 46.00 Counseling given: provider counseling, support medications, counseling >3 minutes and patient declined Smoking risk assessment performed?: Yes Alcohol Intake: former Drug use: Occasionally Substance use type: marijuana Housing: house Do you feel safe at home: Yes Do you feel safe in your relationship?: Yes
[2022-10-10] MEDS: Lactated Ringers 500 ML IV (09:09)
[2022-10-10] MEDS: Digoxin 0.5 MG/2 ML AMP 0.25 MG IVP ×3 (09:13→21:10)
[2022-10-10] MEDS: VANCOMYCIN/WATER (PEG) 2 GM/400 ML BAG IV (09:17)
[2022-10-10] MEDS: Normal Saline Flush 10 ML SYR IVP ×2 (09:32→20:02)
[2022-10-10 09:35] LABS: Lab Add On Test DONE
[2022-10-10 09:46] LABS: Lactate 2.4 mmol/L (0.6-1.4)
[2022-10-10 09:58] LABS: Troponin I < 50 ng/L (<or=60)
[2022-10-10] MEDS: Lactated Ringers 1,000 ML 125 ML IV ×2 (10:05→21:47)
[2022-10-10] MEDS: DOXYCYCLINE 100 MG in Normal Saline 100 ML IVPB ×2 (12:01→23:42)
--- NOTE | 2022-10-10 12:22 | PHA.REVIEW2 ---
Pharmacy Admission Review Admission Clinical Review Admission Pharmacy Review: (Updated 10/10/22 @ 09:04 by Tara Weiss MD) Diarrhea (Acute) Lactic acidosis (Acute) Discharge planning issues (Acute) DVT prophylaxis (Acute) Type 2 diabetes mellitus (Acute) Aspiration pneumonia (Acute) Sepsis (Acute) Septic shock (Acute) Atrial fibrillation with rapid ventricular response (Acute) Hyponatremia (Acute) Thrombocytopenia (Acute) Acute kidney injury (Acute) Pneumonia (Acute) codeine Allergy (Unknown, Unverified 10/09/22 14:05) Other (See Comment) Resuscitation Status Full Code Height 6 ft 2 in Weight 104.9 kg Comments Comments/Follow Ups: Watch BP, HR, BG, SCr, plts, labs, for culture/PCR results, vanco level, and for med changes (possible renal dosing adjustments, antibiotic de-escalation, vanco dose adjustments). Pharmacy Admission Review Renal Dosing Renal Dosing: BUN 26 mg/dL (7-18) H 10/10/22 05:58 Creatinine 1.8 mg/dL (0.70-1.30) H 10/10/22 05:58 Medications needing adjustments: Reviewed (Crcl ~59.8 mL/min current meds okay) List of meds needing interventions: No meds currently need an intervention, but pt. is at an increased risk of MONICA due to multiple nephrotoxic meds such as phenylephrine (due to vasoconstriction), vancomycin, and zosyn Anticoagulation Anticoagulation: Hgb 12.8 g/dL (13.5-17.5) L D 10/10/22 05:58 Hct 37.3 % (40.0-50.0) L 10/10/22 05:58 Plt Count 73 10^3/uL (130-400) L 10/10/22 05:58 INR 1.1 (0.9-1.1) 10/09/22 10:20 Creatinine 1.8 mg/dL (0.70-1.30) H 10/10/22 05:58 DVT Prophylaxis: Reviewed (SCDs ordered, avoiding chemical prophylaxis due to thrombocytopenia) Therapeutic Anticoagulation: N/A Opiate Usage Evaluate Pain Scale/Pains Meds: N/A Relevant Labs Relevant Labs: Sodium 136 mmol/L (136-145) 10/10/22 05:58 Potassium 3.5 mmol/L (3.5-5.1) 10/10/22 05:58 Chloride 101 mmol/L (98-107) 10/10/22 05:58 Magnesium 2.3 mg/dL (1.8-2.4) 10/10/22 05:58 C-Reactive Protein > 25.00 mg/dL (0.0-0.3) H 10/10/22 05:58 Electrolytes, C-Reactive P, ESR: Reviewed DM Control DM Control: Glucose 256 mg/dL (74-106) H 10/10/22 05:58 Hemoglobin A1c 6.4 % (<5.7) H 10/10/22 05:58 Finger Stick Blood Glucose 244 Finger Stick Blood Glucose 244 Finger Stick Blood Glucose 244 DM Control: Reviewed Insulin Dosing, Diabetic Medication: Scheduled insulin glargine and sliding scale insulin aspart ordered. Cardiac Review Cardiac Review: Troponin I < 50 ng/L (<or=60) 10/10/22 05:58 BP, HR, EF%: Reviewed (BP has been low most of admission, on phenylephrine drip provider trying to wean as tolerated. HR has been elevated most of admission so far, digoxin started by provider as the pt's BP couldn't tolerate betablocker per provider's note. ) QTc Review QTc: Reviewed (QTc 444 and 463 on EKGs done yesterday) IV to PO Switch IV Medications: Reviewed Home Meds Home Med List reviewed: Reviewed (no known home meds) Current Meds Current Medication Order Review: Intervened (Discontinued duplicate med orders.) Pharmacy Antibiotic Review Relevant Labs: Relevant Labs 10/10/22 05:58 C-Reactive Protein > 25.00 H Pharmacy Antibiotic Activity: Abx regimen adjustment and C/S review Comments: Ceftriaxone and doxy ordered to cover for aspiration pneumonia and septic shock. Vancomycin added today. Loading dose of vanco given today and maintenance dose entered to start tomorrow to target a trough of 15-20 due to patients MONICA/unstable renal function. Vanco random level ordered for the morning due to unstable renal function. The Vanco maintenance dose may need to be adjusted per protocol pending random level. Transition to AUC dosing target when applicable (e.g. pt's renal function stabilizes). Blood cultures and MRSA screen pending. C. Diff PCR ordered but uncollected at this time. Comments Comments/Follow Ups: Watch BP, HR, BG, SCr, plts, labs, for culture/PCR results, vanco level, and for med changes (possible renal dosing adjustments, antibiotic de-escalation, vanco dose adjustments).
[2022-10-10 13:04] LABS: Lactate 1.6 mmol/L (0.6-1.4)
[2022-10-10 15:36] LABS: C Diff PCR Negative (Negative)
[2022-10-10] MEDS: Normal Saline 500 ML 30 ML IV (19:14)
[2022-10-10] MEDS: Insulin Glargine 300 UNITS/3 ML PEN SC (21:02)
[2022-10-10] MEDS: Levalbuterol 0.63 MG/3 ML UPD VIAL UPD (23:40)
[2022-10-11] VITALS (26 sets, daily range): BP systolic 91–123; BP diastolic 58–78; PULSE 71–159; RESP 19–31; TEMP 35.6–37.1; O2SAT 83–94
--- NOTE | 2022-10-11 | DI.CT_ITS ---
Exam(s) CT CHEST WO EXAM: CT CHEST WO CLINICAL HISTORY: pneumonia. TECHNIQUE: Multi planar reconstructions were performed. CONTRAST MATERIAL: None COMPARISON: CR,XR XR PORTABLE CHEST AP from 10/09/2022 FINDINGS: CHEST: LUNGS: There is prominent infiltrate involving the entire lower lobe including the superior segment. There is a small-moderate size associated right pleural effusion. There is also some take U/S infil trate in the posterior segment of the right upper lobe. Mild increased markings noted in the right m iddle lobe. Right mainstem bronchus is clear. No obvious endobronchial mass at this level and no mu cus in the right mainstem bronchus but there is mucous on the dependent wall of the trachea but not a t the carinal level. Left mainstem bronchus is clear. No significant focal findings in the left laci g and no left pleural effusion. MEDIASTINUM: There is right hilar adenopathy. Also subcarinal adenopathy. Enlarged lymph nodes are also noted in the pretracheal region. No obvious adenopathy in the left hilum. CARDIAC: Heart size is normal. There is no significant pericardial effusion.Caliber of the thoracic aorta is within normal limits. VISUALIZED UPPER ABDOMEN:No significant adrenal findings. Multiple hypodensities in the liver are pr obably benign cysts. OSSEOUS: No significant osseous lesions.No fractures.. OTHER: Distal tip of left subclavian central line is in the distal innominate vein just proximal to i ts junction with the SVC. IMPRESSION: 1. There is extensive infiltrate involving all segments of the right lower lobe including the superio r segment and there is also contiguous infiltrate in the posterior aspect of the right upper lobe. T here is presently no cavitation. No obvious mass evident on this non infused study. There is a smal l-moderate size ipsilateral right pleural effusion. 2. There is adenopathy in the ipsilateral hilum and subcarinal region as well as some pretracheal deyanira nopathy. Probably reactive. 3. Opposite-left lung is clear. RADIATION DOSE DELIVERED: 807.46mGy.cm Total DLP DATA REPOSITORY: All CT scans at this facility are submitted to the National Radiology Data Registry (NRDR) Dose Index Registry (DIR) with the [employer] (ACR). RADIATION OPTIMIZATION: All CT scans at this facility use at least one of these dose optimization te chniques: automated exposure control; mA and/or kV adjustment per patient size (includes targeted exa ms where dose is matched to clinical indication); or iterative reconstruction.
[2022-10-11] MEDS: PIPERACILLIN/TAZO 4.5 GM in Normal Saline 100 ML IVPB (01:22)
[2022-10-11] MEDS: Digoxin 0.5 MG/2 ML AMP 0.25 MG IVP (03:28)
--- NOTE | 2022-10-11 04:36 | NUR.NOTE ---
Nursing Note: Patients girlfriend Sherrill Colón called to inquire on patients condition. Patient is holding his own, CDiff results were negative. Will advise patient that she called at this time.
[2022-10-11] MEDS: Lactated Ringers 1,000 ML 125 ML IV ×2 (05:31→05:45)
[2022-10-11 06:52] LABS: Abs Immature Grans 0.14 10^3/uL (0.0-0.06); Absolute Basophil Count 0.02 10^3/uL (0.0-0.2); Absolute Lymphocyte Count 0.41 10^3/uL (1.2-3.4); Absolute Neutrophil Count 14.55 10^3/uL (1.2-6.7); Basophils % 0.1; HCT 33.7 % (40.0-50.0); HGB 11.8 g/dL (13.5-17.5); Immature Grans % 0.9; Lymphocytes % 2.6; MCH 31.5 pg (27.0-33.0); MCV 90 fL (80-95); Monocytes % 4.1; Neutrophils % 92.3; Platelet Count 84 10^3/uL (130-400); RBC 3.75 10^6/uL (4.36-5.78); RDW 13.4 % (11.8-14.1); RDW-SD 44.3 fL; WBC 15.76 10^3/uL (4.4-10.8)
--- NOTE | 2022-10-11 06:57 | PUCC_ITS ---
General Date of Service Date of service: 10/11/22 Time of Service: 06:57 Assessment and Plan Assessment and plan (1) Septic shock: Status: Acute (2) Leukocytosis: Status: Acute (3) Pneumonia: Status: Acute (4) Anemia: Status: Chronic (5) Thrombocytopenia: Status: Acute (6) Atrial fibrillation with rapid ventricular response: Status: Acute (7) Acute kidney injury: Status: Resolved (8) Type 2 diabetes mellitus: Status: Acute (9) Hypocalcemia: Status: Acute (10) Proteinuria: Status: Acute (11) Hematuria: Status: Acute Assessment and plan: This is a 56 yo admitted to the ICU for septic shock due to a pneumonia. He has a history of smoking and a recent empyema requiring VATS so I would recommend a chest CT. I beleive his thrombocytopenia is due to cirrhosis, but his anemia is since admission and likely reflects the ICU drift due to blood draws. He was on phenylephrine due to issues with his A. fib having uncontrolled rates, but he has been liberated from vasopressors since yesterday morning. His glucose is quite high and should be corrected. His POCUS today found an enlarged and plethoric IVS so I do recommend his continuous IVF be stopped. (12) Cirrhosis: Status: Acute Recommendations Pulmonary: Asthma - start Symbicort - rinse mouth after use - prn albuterol HFA and nebs Cardiac: Septic Shock - s/p phenylephrine - resolved - echo is normal - stop IVF's A. fib - on metoprolol - contolled now Renal: MONICA - resolved, likely pre-renal I&O: Intake & Output 10/08/22 10/09/22 10/10/22 10/11/22 23:59 23:59 23:59 23:59 Intake Total 5055.961 / 5055.961 6288.486 / 6288.486 1435.834 / 1435.834 Output Total 150 / 750 2225 / 2425 825 / 825 Balance 4905.961 / 4305.961 4063.486 / 3863.486 610.834 / 610.834 Weight 104.2 kg 104.9 kg 108.5 kg Daily Fluid Goal:: even GI Nutrition: Nutrition - ok for diet Cirrhosis - monitor Date of Last Bowel Movement: 10/10/22 Infectious Disease: Pneumonia - chest CT - changed Zosyn to cefepime given concurrent vanco use - continue doxy - await MRSA nares - if this is negative, can stop vanco Hematologic: Leukocytosis - due to infection and steroids Thrombocytosis - due to cirrhosis, continue to monitor Neurologic: No acute concerns Endocrine: Type 2 diabetes - uncontrolled - recommend insulin coverage Lines: L subclavian - recommend removal Pryor - recommend removal PIV Prophylaxis: Prilosec No DVT ppx - I would recommend heparin/Lovenox Code Status: Resuscitation Status Full Code Subjective Critical and life-threatening events over the past 24 hours: This is a 56 yo admitted to the ICU for septic shock due to a pneumonia. He states he just got out of retirement 1 month ago and found out his eldest son . Due to this he started smoking again and has been noticing more trouble breathing. He does have a recent history of empyema necessitating VATS decortication. I am unclear what the isolated bacteria was that caused this. He required central line placement and phenylephrine (he was in difficult to control A. fib). He has been off of pressors since yesterday morning and overall seems to be doing much better. He does have a smoking history and has been told he has asthma but he does not use inhalers. He does also have a drinking history with a documented history of cirrhosis. He is not have breathing trouble currently and denies other complaints. Good appetite. Exam Narrative Exam Narrative: Gen: NAD, normal respiratory effort, well-nourished HENT: PERRL Chest: No respiratory distress, normal appearance of chest, diffuse expiratory wheezing Heart: regular rate and rhythym, no murmurs, rubs or gallops Abdomen: Non-distended, soft, non tender Extremities: No clubbing, edema, cyanosis, rashes Neuro: AAOx3 , non focal Psych: cooperative, appropriate mental affect Most Recent VS/Results Last Vital Signs Temp 36.4 C L 10/11/22 06:00 Pulse 98 H 10/11/22 06:01 Resp 31 H 10/11/22 06:01 BP 110/77 10/11/22 06:01 Pulse Ox 88 L 10/11/22 06:01 Laboratory Results - last 24 hr 10/10/22 10/10/22 10/10/22 05:58 05:58 05:58 WBC 17.71 H RBC 4.17 L Hgb 12.8 L D Hct 37.3 L MCV 89 MCH 30.7 MCHC 34.3 RDW 13.0 Plt Count 73 L MPV Immature Gran % 0.0 Neutrophils % 92.0 Band Neutrophils % 3 Lymphocytes % 3.0 Monocytes % 2.0 Eosinophils % 0.0 Basophils % 0.0 Nucleated RBC % 0.0 Absolute Neutrophils 16.82 H Absolute Lymphocytes 0.53 L Absolute Monocytes 0.35 Absolute Eosinophils 0.00 Absolute Basophils 0.00 RBC Morphology Normal VBG Lactate Hemoglobin A1c 6.4 H Troponin I C-Reactive Protein > 25.00 H Vitamin B12 Stl C.difficile Tox PCR Add-On Test Request 10/10/22 10/10/22 10/10/22 05:58 05:58 05:58 WBC RBC Hgb Hct MCV MCH MCHC RDW Plt Count MPV Immature Gran % Neutrophils % Band Neutrophils % Lymphocytes % Monocytes % Eosinophils % Basophils % Nucleated RBC % Absolute Neutrophils Absolute Lymphocytes Absolute Monocytes Absolute Eosinophils Absolute Basophils RBC Morphology VBG Lactate Hemoglobin A1c Troponin I < 50 C-Reactive Protein Vitamin B12 459 Stl C.difficile Tox PCR Add-On Test Request DONE 10/10/22 10/10/22 10/10/22 09:36 13:00 14:15 WBC RBC Hgb Hct MCV MCH MCHC RDW Plt Count MPV Immature Gran % Neutrophils % Band Neutrophils % Lymphocytes % Monocytes % Eosinophils % Basophils % Nucleated RBC % Absolute Neutrophils Absolute Lymphocytes Absolute Monocytes Absolute Eosinophils Absolute Basophils RBC Morphology VBG Lactate 2.4 H* 1.6 H Hemoglobin A1c Troponin I C-Reactive Protein Vitamin B12 Stl C.difficile Tox PCR Negative Add-On Test Request Review of Systems All systems reviewed & are unremarkable except as noted in HPI and below Time spent with patient Time spent in Critical Care: 45 Time spent in Critical care included: Chart review, Documenting critically ill care, Time at immediate bedside and Discussing critically ill care with other medical staff Pocus Exam Limited Cardiac Exam DATE OF EXAM: 10/11/22 TIME OF EXAM: 07:45 PROVIDER THAT PERFORMED THE STUDY: Maribell Huerta IS THIS A REPEAT EXAM DURING THIS ENCOUNTER: no REASON FOR EXAM: Hypotension and Septic Shock VISUALIZED STRUCTURES: four chambers (limited apical views) and IVC VIEW OBTAINED: Apical 4-Chamber and Subxiphoid PERTINENT FINDINGS/IMPRESSION: Plethoric IVC; No LV dysfunction, No RV dilation and No RV dysfunction Exam complete
--- NOTE | 2022-10-11 07:00 | DI.US_ITS ---
APPROVED REPORT EXAM: Comprehensive 2D, Doppler, and color-flow Echocardiogram Patient Location: In-Patient Room/Bed: [address] [employer] Analyst: Nasim Herman RDCS Indications: persistent hypotension, afib Other Information Study Quality: Fair. Technically limited study due to body habitus. Conclusion Normal left ventricular wall thickness and chamber size. Ejection fraction is 55 to 60%. Wall motio n is normal Normal right ventricular size and systolic function Both atria are normal in size No structural valvular abnormalities are identified There is mild mitral and tricuspid regurgitation. Estimated right ventricular systolic pressure is 3 3 mmHg Dilated aortic root, 4 cm Wall motion Left Ventricle The left ventricle is normal size. The left ventricular systolic function is normal. The left ventric ular ejection fraction is within the normal range. There is normal left ventricular wall thickness. T here is normal LV segmental wall motion. There is no ventricular septal defect visualized. LVEF is 55 -60%. Right Ventricle The right ventricle is normal size. Right ventricular systolic function is grossly normal. The RVSP i s 32.7 mmHg. Atria The left atrium size is normal. The right atrium size is normal. The interatrial septum is intact wit h no evidence for an atrial septal defect. Aortic Valve Aortic valve not well visualized but is probably trileaflet There is no aortic valvular stenosis. No aortic regurgitation is present. Mitral Valve The mitral valve is normal in structure. No evidence of mitral valve stenosis. Mild mitral regurgitat ion. Tricuspid Valve The tricuspid valve is normal in structure. There is no tricuspid valve stenosis. Mild tricuspid regu rgitation. Pulmonic Valve Pulmonic valve is not well visualized. There is no pulmonic valvular regurgitation. Great Vessels Aortic root is moderately dilated. IVC is normal in size and collapses >50% with inspiration. Pericardium There is no pericardial effusion. 2D Dimensions IVSD d PLAX 0.92 cm M: 0.6-1.2 LV Vol A2C d MOD 79.3 mL LVPW d PLAX 0.94 cm M: 0.6 - 1.2 LV Vol A4C d MOD 100.5 mL LVID d PLAX 4.58 cm M: 4.2 - 5.8 LA vol/ BSA A4C s A-L 14.9 mL/m2 LVDs 3.05 cm M: 2.5 - 4.0 LA Area A4C s MOD 13.58 cm2 Ao Root d 4.10 cm M: 3.1 - 3.7 LV EF A4C MOD 54.8 % Ao Asc Diam d 3.18 cm M: 2.6 - 3.4 LV EF A2C MOD 55.3 % LV EF Teichholz 60.9 % LV EF Biplane MOD 54.8 % LVEF (Frederick's) 54.81 % M: 52 - 72 SV 48.95 mL LV Volume 63.98 mL M: 62 - 150 SV Index 21.19 mL/m2 LV Volume Index 27.69 mL/m2 M: 34 - 74 LV Vol Biplane MOD 89.3 mL FS 32.50 % LV Diastology MV E' medial 0.166 (>0.07 m/s) MV E Vmax 1.08 (0.4-1.3 m/s) LV E/e MED 6.50 (<14) MV E' lateral 0.227 (>0.1 m/s) LV E/e LAT 4.75 (<14) MV E/E' medial 6.50 MV E/E' lateral 4.77 Aortic Valve LVOT Area 3.26 cm2 AoV Area Vmax 2.61 cm2 LVOT Vmax 1.00 m/s AoV Area/ BSA (Vmax) 1.13 cm2/m2 LVOT Mean Greg. 0.65 m/s MARCELLA Mean Greg. 2.46 cm2 LVOT Peak Grad 4.0 mmHg MARCELLA Mean Greg. Index 1.07 cm2/m2 LVOT Mean Grad 2.0 mmHg LVOT VTI 0.166 m LVOT Diam s 2.00 cm AoV Vmax 1.24 m/s Velocity Ratio 0.81 AoV Mean Greg. 0.85 m/s AoV Peak Grad 6.2 mmHg LVOT SV 54.05 mL AoV Mean Grad 3.4 mmHg AoV VTI 0.199 m AoV Area VTI 2.71 cm2 AoV Area/ BSA (VTI) 1.17 cm/m2 Mitral Valve MV DT 164 (160-240 msec) MV PHT 47 msec MV Area PHT 4.64 cm2 MV VTI 0.203 m MV Area VTI 2.66 (4.0-6.0 cm2) Pulmonary Valve PV Vmax 0.78 (0.5-1.5 m/s) RVOT Peak Gr. 1.51 mmHg PV Peak Grad 2.4 mmHg RVOT Mean Gr. 0.75 mmHg PV Mean Grad 1.5 mmHg RVOT VTI 0.124 m PV VTI 0.164 m RVOT Vmax 0.61 m/s Tricuspid Valve TR Peak Grad 29.7 mmHg TR Vmax 2.73 m/s RA Pressure 3.00 mmHg RVSP (TR) 32.7 mmHg
[2022-10-11 07:13] LABS: Absolute Monocyte Count 0.65 10^3/uL (0.1-0.8)
[2022-10-11 07:39] LABS: Diff Comment Diff Reviewed; RBC Morphology Normal
[2022-10-11 08:14] LABS: Procalcitonin 12.6 ng/mL
[2022-10-11 08:23] LABS: Anion Gap 8.2 mmol/L (3-11); BUN 31 mg/dL (7-18); CO2 24.8 mmol/L (21.0-32.0); CREATININE 1.3 mg/dL (0.70-1.30); Chloride 106 mmol/L (98-107); Estimated GFR 64.88 (mL/min/1.73m2); Glucose 264 mg/dL (74-106); Magnesium 2.2 mg/dL (1.8-2.4); Potassium 3.7 mmol/L (3.5-5.1); Sodium 139 mmol/L (136-145)
[2022-10-11 08:33] LABS: C-Reactive Protein 14.83 mg/dL (0.0-0.3)
--- NOTE | 2022-10-11 08:37 | W.PM.PROGNOT ---
Date of Service Date of service: 10/11/22 Time of Service: 08:38 Assessment and Plan Assessment and plan (1) Septic shock: Status: Acute Assessment and plan: Due to pneumonia, present on admission. Blood cx w/ NGTD. Obtaining cx results from [facility]. Abx changed to doxy + cefepime + vanco. Await MRSA nares. Off of vasopressors as of yesterday am - ok to d/c CVL and transfer out of the ICU. D/c IVF. For CT chest. Await urine strep and legionella antigens, sputum for mycoplasma and sputum C&S. Procalcitonin going up, but CRP is going down and clinically much improved. (2) Aspiration pneumonia: Status: Acute Assessment and plan: As above Await CT chest. (3) Atrial fibrillation with rapid ventricular response: Status: Acute Assessment and plan: In setting of septic shock. Treat infection. HR better post digoxin load; however, we also now have BP to work with, and I would prefer he be on a beta janine. Start low dose lopressor. Await echocardiogram. (4) Diarrhea: Status: Acute Assessment and plan: This has improved. C. diff negative; remainder of the bacterial pathogens testing is pending. (5) Lactic acidosis: Status: Resolved Assessment and plan: In setting of septic shock. (6) Acute kidney injury: Status: Resolved Assessment and plan: In setting of septic shock. Much improved - Cr is 1.3, down from 2.4 I do not know what the patient's baseline Cr is. D/c IVF and abebe. Will obtain bladder scans. (7) Type 2 diabetes mellitus: Status: Acute Assessment and plan: A1C 6.4. Continue a carb consistent diet. Increase lantus Cover with SSI. (8) Thrombocytopenia: Status: Acute Assessment and plan: Improving. I am not sure about the patient's baseline platelet count. Apparently, he does have a h/o cirrhosis. Will avoid chemical DVT ppx. Replete B12. Could be sequela of sepsis - continue to treat infection and monitor counts. (9) Hyponatremia: Status: Acute Assessment and plan: In setting of dehydration, cirrhosis. Improving. D/c IVF and monitor. (10) Hypokalemia: Status: Resolved Assessment and plan: Recheck in am. (11) Hypomagnesemia: Status: Resolved Assessment and plan: Recheck in am. (12) Discharge planning issues: Status: Acute Assessment and plan: Full code Transfer out of the ICU Discussed with Dr Huerta. (13) DVT prophylaxis: Status: Acute Assessment and plan: SCDs. Avoid chemical DVT ppx in setting of thrombocytopenia. Subjective Subjective Interval history since last seen: Mr Merlos states he feels better. He is not having as much diarrhea. He is not short of breath and not coughing. He denies dizziness, CP, n/v. He has been off of vasopressors since yesterday. He desaturated to 82-83% overnight but refused O2. He tells me this is because it took him forever to get off of oxygen in the past. I encouraged him to reconsider especially because it appears he only needs oxygen at night at this time. He is getting a CT of his chest this am. [facility] records states that he had an empyema/lung abscess in 03/04 requiring chest tubs/VATS/decortication. We are looking for info re which organism caused this. Remains in Afib, HR 100s-110s. Exam Narrative Exam Narrative: General: A&Ox3, NAD, on RA, [place]SHAWNEE HEENT: EOMI, dry MM Cardiovascular: irregularly irregular rhythm, no m/r/g Lungs: Expiratory wheezing B Gastrointestinal: soft, nontender, nondistended Genitourinary: has a abebe - clear yellow urine is draining Extremities: no edema BLEs Objective Last Vital Signs Temp 36.4 C L 10/11/22 06:00 Pulse 98 H 10/11/22 06:01 Resp 31 H 10/11/22 06:01 BP 110/77 10/11/22 06:01 Pulse Ox 88 L 10/11/22 06:01 Laboratory Results - last 24 hr 10/10/22 10/10/22 10/10/22 05:58 05:58 09:36 WBC RBC Hgb Hct MCV MCH MCHC RDW Plt Count MPV Immature Gran % Neutrophils % Lymphocytes % Monocytes % Eosinophils % Basophils % Nucleated RBC % Absolute Neutrophils Absolute Lymphocytes Absolute Monocytes Absolute Eosinophils Absolute Basophils RBC Morphology VBG Lactate 2.4 H* Sodium Potassium Chloride Carbon Dioxide Anion Gap BUN Creatinine Est GFR (CKD-EPI 2020) Glucose Calcium Magnesium Troponin I < 50 C-Reactive Protein Procalcitonin Stl C.difficile Tox PCR Random Vancomycin Add-On Test Request DONE 10/10/22 10/10/22 10/11/22 13:00 14:15 05:40 WBC RBC Hgb Hct MCV MCH MCHC RDW Plt Count MPV Immature Gran % Neutrophils % Lymphocytes % Monocytes % Eosinophils % Basophils % Nucleated RBC % Absolute Neutrophils Absolute Lymphocytes Absolute Monocytes Absolute Eosinophils Absolute Basophils RBC Morphology VBG Lactate 1.6 H Sodium 139 Potassium 3.7 Chloride 106 Carbon Dioxide 24.8 Anion Gap 8.2 BUN 31 H Creatinine 1.3 Est GFR (CKD-EPI 2020) 64.88 Glucose 264 H Calcium 7.0 L Magnesium 2.2 Troponin I C-Reactive Protein 14.83 H Procalcitonin Stl C.difficile Tox PCR Negative Random Vancomycin Add-On Test Request 10/11/22 10/11/22 10/11/22 05:40 05:40 06:35 WBC 15.76 H RBC 3.75 L Hgb 11.8 L Hct 33.7 L MCV 90 MCH 31.5 MCHC 35.0 RDW 13.4 Plt Count 84 L MPV Immature Gran % 0.9 Neutrophils % 92.3 Lymphocytes % 2.6 Monocytes % 4.1 Eosinophils % 0.0 Basophils % 0.1 Nucleated RBC % 0.0 Absolute Neutrophils 14.55 H Absolute Lymphocytes 0.41 L Absolute Monocytes 0.65 Absolute Eosinophils 0.00 Absolute Basophils 0.02 RBC Morphology Normal VBG Lactate Sodium Potassium Chloride Carbon Dioxide Anion Gap BUN Creatinine Est GFR (CKD-EPI 2020) Glucose Calcium Magnesium Troponin I C-Reactive Protein Procalcitonin 12.6 Stl C.difficile Tox PCR Random Vancomycin Cancelled Add-On Test Request 10/11/22 07:45 WBC RBC Hgb Hct MCV MCH MCHC RDW Plt Count MPV Immature Gran % Neutrophils % Lymphocytes % Monocytes % Eosinophils % Basophils % Nucleated RBC % Absolute Neutrophils Absolute Lymphocytes Absolute Monocytes Absolute Eosinophils Absolute Basophils RBC Morphology VBG Lactate Sodium Potassium Chloride Carbon Dioxide Anion Gap BUN Creatinine Est GFR (CKD-EPI 2020) Glucose Calcium Magnesium Troponin I C-Reactive Protein Procalcitonin Stl C.difficile Tox PCR Random Vancomycin Cancelled Add-On Test Request Time Spent with Patient Time Spent with Patient: 35-49 minutes Time was spent: preparing to see the patient(eg.review tests), obtaining and/or reviewing separately otained hiistory, ordering medications,tests, procedures, referring, communicating with other health hospice care transitions coordinator, indepentently interpreting results, counseling the patient and care coordination
--- NOTE | 2022-10-11 08:46 | CMPROGNOTE_ITS ---
Date of service: 10/11/22 Time of Service: 08:46 Care Management Progress Note Progress Note Text Progress Note Text: S/O: Prateek was lying in bed when CM met with him. His girlfriend, Sherrill, was in the room visiting. He stated that he is feeling much better today, and is looking forward to returning home. His catheter had recently been removed, and he was happy about that, as it was very uncomfortable. Per report, he will have a CT scan today. Prateek asked that his planned giving officer, Mika Madrid, be added to his HIPAA, as he would like him to be updated. CM discussed his recent release from correction, and he stated that the community reintegration is not as robust as expected. He is currently in transitional housing, and seeking employment. He stated that he is very independent at baseline, and does not anticipate needing any services upon discharge. CM will continue to follow. A: Prateek is a 56 year old male admitted to [facility] on 10/09/22 with Sepsis due to aspiration pneumonia. P: Anticipate Prateek will be discharged home when medically cleared with no add itional services. He will establish care with a local provider and transport with family. CM will follow and assess for any discharge planning concerns.
[2022-10-11 09:01] LABS: Lab Add On Test DONE
[2022-10-11 09:12] LABS: Albumin 1.7 g/dL (3.4-5.0)
[2022-10-11] MEDS: predniSONE 20 MG TAB 40 MG PO (09:12)
[2022-10-11] MEDS: Omeprazole 20 MG CAPCR 40 MG PO (09:12)
[2022-10-11] MEDS: Normal Saline Flush 10 ML SYR IVP ×3 (09:12→20:59)
[2022-10-11] MEDS: Cyanocobalamin 500 MCG TAB PO (09:12)
[2022-10-11] MEDS: Metoprolol 12.5 MG TAB PO ×2 (09:12→20:55)
[2022-10-11] MEDS: Ketoconazole 2% CREAM 15 GM TUBE TP (09:12)
[2022-10-11] MEDS: Insulin Aspart 300 UNITS/3 ML PEN SC ×4 (09:45→20:54)
[2022-10-11] MEDS: CEFEPIME 2 GM in Normal Saline 100 ML IVPB (09:47)
[2022-10-11] MEDS: VANCOMYCIN/WATER (PEG) 1 GM/200 ML BAG IV (10:30)
[2022-10-11] MEDS: DOXYCYCLINE 100 MG in Normal Saline 100 ML IVPB (11:31)
[2022-10-11 12:33] LABS: Legionella Ag Detection Urine Positive (Negative)
[2022-10-11] MEDS: levoFLOXacin 750 MG/150 ML BAG 100 MG IVPB (13:43)
[2022-10-11] MEDS: Normal Saline 500 ML 30 ML IV (13:45)
--- NOTE | 2022-10-11 17:42 | NUR.NOTE ---
Nursing Note: Accessed pt chart to determine EKG orders.
[2022-10-11] MEDS: Insulin Glargine 300 UNITS/3 ML PEN 10 UNITS SC (20:54)
[2022-10-11] MEDS: Levalbuterol HFA 15 GM INH 2 PUFF IH (21:00)
[2022-10-11] MEDS: Budesonide/Formoterol 160/4.5 6 GM 60 PUFF INH IH (21:00)
[2022-10-11 22:59] LABS: Streptococcus Pneumoniae Ag, U Negative (Negative)
[2022-10-11 23:33] LABS: Campylobacter PCR Negative (Negative); Salmonella PCR Negative (Negative); Shiga Toxin PCR Negative (Negative); Shigella/Enteroinvasive Ecoli Negative (Negative)
[2022-10-12 07:00] VITALS: PULSE 113
--- NOTE | 2022-10-12 07:08 | PGE_ITS ---
Assessment and Plan Assessment and plan (1) Legionella pneumonia: Status: Acute (2) Asthma: Status: Chronic Assessment and plan: This is a 56 yo admitted originally to the ICU for septic shock requiring vasopr essor support due to a pneumonia. The urine antigen for legionella returned positive. He was incarcerated recently, but he was released 1 month ago. Typically, the incubation period of legionella is 5-6 days from time of exposure (range 2-14 days), however there have been reported incubation periods up to 26 days, making it possible this was contracted while incarcerated. It is a reportable disease and the health department will need to assess if there have been other illnesses in the halfway he was incarcerated at. He is doing much better and he is now of Levaquin (was on doxycycline which has activity against legionella as well). Legionella pneumonia - Levaquin 750 for a total of 10 days, given his severe disease - this can be transitioned to oral - VibraPEP and IS - recommend chest CT in 8 weeks to assess for resolution (I will order this) - I will arrange f/u for him with me Asthma - continue Symbicort on D/C - PFT's as an outpatient to assess for COPD given smoking history General Date Of Service Date of service: 10/12/22 Time of Service: 07:09 Requesting physician: Tara Weiss Reason for Consult: Pneumonia Subjective 24 Hour Events: His legionella urine antigen returned positive. Antibiotics adjusted to Levaquin. Note Note: He is feeling ok today. His cough is dry. He is doing fine with breathing and denies chest pains. He is unsure whether anyone else in his halfway was sick at the time of him leaving. He has not noticed whether the Symbicort has helped at all. Exam Narrative Exam Narrative: Gen: NAD, normal respiratory effort, well-nourished HENT: PERRL Chest: No respiratory distress, normal appearance of chest, RLL wheezing Heart: regular rate and rhythym, no murmurs, rubs or gallops Abdomen: Non-distended, soft, non tender Extremities: No clubbing, edema, cyanosis, rashes Neuro: AAOx3 , non focal Psych: cooperative, appropriate mental affect Objective Last Vital Signs Temp 37.1 C 10/11/22 20:52 Pulse 105 H 10/11/22 23:00 Resp 22 10/11/22 20:52 BP 112/73 10/11/22 20:52 Pulse Ox 91 L 10/11/22 20:52 Laboratory Results - last 24 hr 10/10/22 10/11/22 10/11/22 10:30 05:40 05:40 WBC RBC Hgb Hct MCV MCH MCHC RDW Plt Count MPV Immature Gran % Neutrophils % Lymphocytes % Monocytes % Eosinophils % Basophils % Nucleated RBC % Absolute Neutrophils Absolute Lymphocytes Absolute Monocytes Absolute Eosinophils Absolute Basophils RBC Morphology Sodium 139 Potassium 3.7 Chloride 106 Carbon Dioxide 24.8 Anion Gap 8.2 BUN 31 H Creatinine 1.3 Est GFR (CKD-EPI 2020) 64.88 Glucose 264 H Calcium 7.0 L Magnesium 2.2 C-Reactive Protein 14.83 H Albumin Procalcitonin 12.6 Random Vancomycin Urine Legionella Ag Positive A Add-On Test Request 10/11/22 10/11/22 10/11/22 05:40 05:40 05:40 WBC 15.76 H RBC 3.75 L Hgb 11.8 L Hct 33.7 L MCV 90 MCH 31.5 MCHC 35.0 RDW 13.4 Plt Count 84 L MPV Immature Gran % 0.9 Neutrophils % 92.3 Lymphocytes % 2.6 Monocytes % 4.1 Eosinophils % 0.0 Basophils % 0.1 Nucleated RBC % 0.0 Absolute Neutrophils 14.55 H Absolute Lymphocytes 0.41 L Absolute Monocytes 0.65 Absolute Eosinophils 0.00 Absolute Basophils 0.02 RBC Morphology Normal Sodium Potassium Chloride Carbon Dioxide Anion Gap BUN Creatinine Est GFR (CKD-EPI 2020) Glucose Calcium Magnesium C-Reactive Protein Albumin 1.7 L Procalcitonin Random Vancomycin Urine Legionella Ag Add-On Test Request DONE 10/11/22 10/11/22 06:35 07:45 WBC RBC Hgb Hct MCV MCH MCHC RDW Plt Count MPV Immature Gran % Neutrophils % Lymphocytes % Monocytes % Eosinophils % Basophils % Nucleated RBC % Absolute Neutrophils Absolute Lymphocytes Absolute Monocytes Absolute Eosinophils Absolute Basophils RBC Morphology Sodium Potassium Chloride Carbon Dioxide Anion Gap BUN Creatinine Est GFR (CKD-EPI 2020) Glucose Calcium Magnesium C-Reactive Protein Albumin Procalcitonin Random Vancomycin Cancelled Cancelled Urine Legionella Ag Add-On Test Request Results Medications Medications: Active Medications Generic Name Dose Route Start Last Admin Trade Name Freq PRN Reason Stop Dose Admin Acetaminophen 0 mg 10/09/22 13:10 Acetaminophen 325 Mg Tab PO Q4H PRN PRN Al Hydrox/Mg Hydrox/Simethicone 30 ml 10/09/22 13:10 Mylanta Suspension 30 Ml Cup PO Q2H PRN PRN Budesonide/Formoterol Fumarate 2 puff 10/11/22 08:30 10/11/22 21:00 Budesonide/Formoterol 160/4.5 6 Gm 60 Puff Inh IH 2 puff BID [facility] Administration Cyanocobalamin 500 mcg 10/11/22 08:30 10/11/22 09:12 Cyanocobalamin 500 Mcg Tab PO 500 mcg DAILY [facility] Administration Device 1 each 10/11/22 08:00 Inhaler, Assist Device MC DIRECTED [facility] Dextrose 0 gm 10/09/22 13:14 Glucose Oral Gel 15 Gm/37.5 Gm Tube PO DIRECTED PRN Dextrose/Water 0 gm 10/09/22 13:14 Dextrose 50%-Water 25 Gm/50 Ml Syr IVP DIRECTED PRN Dimethicone/Zinc Oxide 0 gm 10/09/22 13:00 Joseph Protect Cream 142 Gm Tube TP PRN PRN Docusate Sodium 100 mg 10/09/22 13:10 Docusate Sodium 100 Mg Cap PO TID PRN PRN Heparin Sodium (Porcine) 5,000 units 10/11/22 10:00 10/11/22 20:58 Heparin 5,000 Units/Ml Vial SC Not Given Q12H [facility] Sodium Chloride 500 mls @ 0 mls/hr 10/09/22 13:10 10/11/22 16:15 Saline 500ml Bag IV 0 mls/hr PRN PRN Infusion As Directed Levofloxacin 750 mg in 150 mls @ 100 mls/hr 10/11/22 14:00 10/11/22 15:25 Levaquin Premixed Bag IVPB Infused Q24H [facility] Infusion IV Miscellaneous Supplies 1 each 10/09/22 13:15 Iv Access IV DIRECTED [facility] Insulin Aspart 0 units 10/09/22 17:00 10/11/22 20:54 Insulin Aspart 300 Units/3 Ml Pen SC 6 units 0800,1200,1700,2200 [facility] Administration Protocol Insulin Glargine 10 units 10/11/22 22:00 10/11/22 20:54 Insulin Glargine 300 Units/3 Ml Pen SC 10 units HS [facility] Administration Ketoconazole 15 gm 10/10/22 08:30 10/11/22 09:12 Ketoconazole 2% Cream 15 Gm Tube TP 1 applic DAILY [facility] Administration Lactobacillus Acidophilus/Casei 1 cap 10/11/22 08:30 10/11/22 09:12 L. Acidophilus, Casei, Rhamnosus Cap PO 1 cap DAILY [facility] Administration Levalbuterol 2 puff 10/11/22 10:11 10/11/22 21:00 Levalbuterol Hfa 15 Gm Inh IH 2 puff Q4H PRN PRN Administration Magnesium Hydroxide 30 ml 10/09/22 13:10 Milk Of Magnesia 30 Ml Cup PO DAILY PRN PRN Metoprolol Tartrate 12.5 mg 10/11/22 20:00 10/11/22 20:55 Metoprolol 12.5 Mg Tab PO 12.5 mg BID [facility] Administration Metoprolol Tartrate 2.5 mg 10/11/22 15:52 Metoprolol 5 Mg/5 Ml Vial IVP Q6H PRN PRN Nicotine 14 mg 10/09/22 15:23 Nicotine 14 Mg/24 Hr Patch TD DAILY PRN PRN Omeprazole 40 mg 10/10/22 07:30 10/11/22 09:12 Omeprazole 20 Mg Capcr PO 40 mg DAILY@0730 [facility] Administration Prednisone 40 mg 10/11/22 08:30 10/11/22 09:12 Prednisone 20 Mg Tab PO 40 mg DAILY [facility] Administration Sodium Chloride 0 ml 10/09/22 13:10 10/11/22 13:44 Normal Saline Flush 10 Ml Syr IVP 10 ml PRN PRN Administration Sodium Chloride 0 ml 10/11/22 08:30 10/11/22 20:59 Normal Saline Flush 10 Ml Syr IVP 10 ml BID [facility] Administration Allergies codeine Allergy (Unknown, Unverified 10/09/22 14:05) Other (See Comment) Labs 10/11/22 05:40 10/12/22 06:30 Labs: 10/09/22 12:10 Blood Blood Culture - Preliminary NO GROWTH 48 HOURS 10/09/22 11:55 Blood Blood Culture - Preliminary NO GROWTH 48 HOURS 10/10/22 10:30 Nose MRSA Screen - Final Laboratory Tests Range/Units 10/09/22 10/09/22 10/09/22 10:20 10:20 10:20 WBC (4.4-10.8) 10^3/uL 15.61 H RBC (4.36-5.78) 10^6/uL 4.82 Hgb (13.5-17.5) g/dL 15.0 Hct (40.0-50.0) % 42.4 MCV (80-95) fL 88 MCH (27.0-33.0) pg 31.1 MCHC (32.0-36.0) % 35.4 RDW (11.8-14.1) % 12.4 Plt Count (130-400) 10^3/uL 60 L MPV (8.0-11.0) fL Immature Gran % 0.0 Neutrophils % 91.0 Band Neutrophils % 1 Lymphocytes % 4.0 Monocytes % 4.0 Eosinophils % 0.0 Basophils % 0.0 Nucleated RBC % (0.0-0.3) % 0.0 Absolute Neutrophils (1.2-6.7) 10^3/uL 14.36 H Absolute Lymphocytes (1.2-3.4) 10^3/uL 0.62 L Absolute Monocytes (0.1-0.8) 10^3/uL 0.62 Absolute Eosinophils (0.0-0.7) 10^3/uL 0.00 Absolute Basophils (0.0-0.2) 10^3/uL 0.00 RBC Morphology Normal PT (9.3-11.0) sec 10.7 INR (0.9-1.1) 1.1 APTT (21.5-31.9) sec 31.2 VBG pH (7.31-7.41) VBG pCO2 (41-51) mmHg VBG pO2 mmHg VBG HCO3 (23-28) mmol/L VBG Total CO2 (24-29) mmol/L VBG O2 Saturation % VBG Base Excess (-2-3) mmol/L VBG Lactate (0.6-1.4) mmol/L Sodium (136-145) mmol/L 128 L Potassium (3.5-5.1) mmol/L 3.2 L Chloride (98-107) mmol/L 90 L Carbon Dioxide (21.0-32.0) mmol/L 23.2 Anion Gap (3-11) mmol/L 14.8 H BUN (7-18) mg/dL 27 H Creatinine (0.70-1.30) mg/dL 2.4 H Est GFR (CKD-EPI 2020) (mL/min/1.73m2) 31.09 Glucose (74-106) mg/dL 215 H Hemoglobin A1c (<5.7) % Calcium (8.5-10.1) mg/dL 7.7 L Magnesium (1.8-2.4) mg/dL Total Bilirubin (0.2-1.0) mg/dL 0.7 AST (15-37) U/L 84 H ALT (16-63) U/L 77 H Alkaline Phosphatase (46-116) U/L 92 Troponin I (<or=60) ng/L C-Reactive Protein (0.0-0.3) mg/dL Total Protein (6.4-8.2) g/dL 7.7 Albumin (3.4-5.0) g/dL 2.6 L Vitamin B12 (193-986) pg/mL Procalcitonin ng/mL Urine Color (Yellow) Urine Clarity (Clear) Urine pH (5-8) Ur Specific [place] (1.005-1.025) Urine Protein (Negative) mg/dL Urine Ketones (Negative) mg/dL Urine Blood (Negative) Urine Nitrite (Negative) Urine Bilirubin (Negative) Urine Urobilinogen (Up to 0.2) mg/dL Ur Leukocyte Esterase (Negative) Urine RBC (0-2) HPF Urine WBC (0-5) HPF Ur Epithelial Cells (Negative) HPF Urine Crystals (Negative) HPF Urine Bacteria (Negative) HPF Urine Casts (Negative) LPF Urine Mucus (Negative) Ur Culture Indicated? Urine Glucose (Negative) mg/dL Stl C.difficile Tox PCR (Negative) Random Vancomycin COVID-19 Source SARS-CoV-2 (PCR) (Negative) Influenza Type A (PCR) (Negative) Influenza Type B (PCR) (Negative) Urine Legionella Ag (Negative) RSV (PCR) (Negative) Add-On Test Request Range/Units 10/09/22 10/09/22 10/09/22 10:20 11:29 11:55 WBC (4.4-10.8) 10^3/uL RBC (4.36-5.78) 10^6/uL Hgb (13.5-17.5) g/dL Hct (40.0-50.0) % MCV (80-95) fL MCH (27.0-33.0) pg MCHC (32.0-36.0) % RDW (11.8-14.1) % Plt Count (130-400) 10^3/uL MPV (8.0-11.0) fL Immature Gran % Neutrophils % Band Neutrophils % Lymphocytes % Monocytes % Eosinophils % Basophils % Nucleated RBC % (0.0-0.3) % Absolute Neutrophils (1.2-6.7) 10^3/uL Absolute Lymphocytes (1.2-3.4) 10^3/uL Absolute Monocytes (0.1-0.8) 10^3/uL Absolute Eosinophils (0.0-0.7) 10^3/uL Absolute Basophils (0.0-0.2) 10^3/uL RBC Morphology PT (9.3-11.0) sec INR (0.9-1.1) APTT (21.5-31.9) sec VBG pH (7.31-7.41) VBG pCO2 (41-51) mmHg VBG pO2 mmHg VBG HCO3 (23-28) mmol/L VBG Total CO2 (24-29) mmol/L VBG O2 Saturation % VBG Base Excess (-2-3) mmol/L VBG Lactate (0.6-1.4) mmol/L 2.5 H* Sodium (136-145) mmol/L Potassium (3.5-5.1) mmol/L Chloride (98-107) mmol/L Carbon Dioxide (21.0-32.0) mmol/L Anion Gap (3-11) mmol/L BUN (7-18) mg/dL Creatinine (0.70-1.30) mg/dL Est GFR (CKD-EPI 2020) (mL/min/1.73m2) Glucose (74-106) mg/dL Hemoglobin A1c (<5.7) % Calcium (8.5-10.1) mg/dL Magnesium (1.8-2.4) mg/dL Total Bilirubin (0.2-1.0) mg/dL AST (15-37) U/L ALT (16-63) U/L Alkaline Phosphatase (46-116) U/L Troponin I (<or=60) ng/L C-Reactive Protein (0.0-0.3) mg/dL Total Protein (6.4-8.2) g/dL Albumin (3.4-5.0) g/dL Vitamin B12 (193-986) pg/mL Procalcitonin ng/mL 5.6 Urine Color (Yellow) Dark Yellow Urine Clarity (Clear) Cloudy Urine pH (5-8) 5.5 Ur Specific [place] (1.005-1.025) >= 1.030 H Urine Protein (Negative) mg/dL >=300 H Urine Ketones (Negative) mg/dL 15 H Urine Blood (Negative) Large H Urine Nitrite (Negative) Negative Urine Bilirubin (Negative) Moderate H Urine Urobilinogen (Up to 0.2) mg/dL 1.0 H Ur Leukocyte Esterase (Negative) Negative Urine RBC (0-2) HPF 10-20 H Urine WBC (0-5) HPF Negative Ur Epithelial Cells (Negative) HPF Rare Urine Crystals (Negative) HPF Negative Urine Bacteria (Negative) HPF Negative Urine Casts (Negative) LPF 20-50 Fine Granular Urine Mucus (Negative) Negative Ur Culture Indicated? No Urine Glucose (Negative) mg/dL 100 H Stl C.difficile Tox PCR (Negative) Random Vancomycin COVID-19 Source SARS-CoV-2 (PCR) (Negative) Influenza Type A (PCR) (Negative) Influenza Type B (PCR) (Negative) Urine Legionella Ag (Negative) RSV (PCR) (Negative) Add-On Test Request Range/Units 10/09/22 10/09/22 10/09/22 11:55 13:10 14:10 WBC (4.4-10.8) 10^3/uL RBC (4.36-5.78) 10^6/uL Hgb (13.5-17.5) g/dL Hct (40.0-50.0) % MCV (80-95) fL MCH (27.0-33.0) pg MCHC (32.0-36.0) % RDW (11.8-14.1) % Plt Count (130-400) 10^3/uL MPV (8.0-11.0) fL Immature Gran % Neutrophils % Band Neutrophils % Lymphocytes % Monocytes % Eosinophils % Basophils % Nucleated RBC % (0.0-0.3) % Absolute Neutrophils (1.2-6.7) 10^3/uL Absolute Lymphocytes (1.2-3.4) 10^3/uL Absolute Monocytes (0.1-0.8) 10^3/uL Absolute Eosinophils (0.0-0.7) 10^3/uL Absolute Basophils (0.0-0.2) 10^3/uL RBC Morphology PT (9.3-11.0) sec INR (0.9-1.1) APTT (21.5-31.9) sec VBG pH (7.31-7.41) 7.41 VBG pCO2 (41-51) mmHg 34 L VBG pO2 mmHg 42 VBG HCO3 (23-28) mmol/L 22 L VBG Total CO2 (24-29) mmol/L 19 L VBG O2 Saturation % 78 VBG Base Excess (-2-3) mmol/L -3 L VBG Lactate (0.6-1.4) mmol/L Sodium (136-145) mmol/L Potassium (3.5-5.1) mmol/L Chloride (98-107) mmol/L Carbon Dioxide (21.0-32.0) mmol/L Anion Gap (3-11) mmol/L BUN (7-18) mg/dL Creatinine (0.70-1.30) mg/dL Est GFR (CKD-EPI 2020) (mL/min/1.73m2) Glucose (74-106) mg/dL Hemoglobin A1c (<5.7) % Calcium (8.5-10.1) mg/dL Magnesium (1.8-2.4) mg/dL Total Bilirubin (0.2-1.0) mg/dL AST (15-37) U/L ALT (16-63) U/L Alkaline Phosphatase (46-116) U/L Troponin I (<or=60) ng/L < 50 C-Reactive Protein (0.0-0.3) mg/dL Total Protein (6.4-8.2) g/dL Albumin (3.4-5.0) g/dL Vitamin B12 (193-986) pg/mL Procalcitonin ng/mL Urine Color (Yellow) Urine Clarity (Clear) Urine pH (5-8) Ur Specific [place] (1.005-1.025) Urine Protein (Negative) mg/dL Urine Ketones (Negative) mg/dL Urine Blood (Negative) Urine Nitrite (Negative) Urine Bilirubin (Negative) Urine Urobilinogen (Up to 0.2) mg/dL Ur Leukocyte Esterase (Negative) Urine RBC (0-2) HPF Urine WBC (0-5) HPF Ur Epithelial Cells (Negative) HPF Urine Crystals (Negative) HPF Urine Bacteria (Negative) HPF Urine Casts (Negative) LPF Urine Mucus (Negative) Ur Culture Indicated? Urine Glucose (Negative) mg/dL Stl C.difficile Tox PCR (Negative) Random Vancomycin COVID-19 Source Nasopharynx SARS-CoV-2 (PCR) (Negative) Negative Influenza Type A (PCR) (Negative) Negative Influenza Type B (PCR) (Negative) Negative Urine Legionella Ag (Negative) RSV (PCR) (Negative) Negative Add-On Test Request Range/Units 10/09/22 10/09/22 10/09/22 15:25 15:25 15:25 WBC (4.4-10.8) 10^3/uL RBC (4.36-5.78) 10^6/uL Hgb (13.5-17.5) g/dL Hct (40.0-50.0) % MCV (80-95) fL MCH (27.0-33.0) pg MCHC (32.0-36.0) % RDW (11.8-14.1) % Plt Count (130-400) 10^3/uL MPV (8.0-11.0) fL Immature Gran % Neutrophils % Band Neutrophils % Lymphocytes % Monocytes % Eosinophils % Basophils % Nucleated RBC % (0.0-0.3) % Absolute Neutrophils (1.2-6.7) 10^3/uL Absolute Lymphocytes (1.2-3.4) 10^3/uL Absolute Monocytes (0.1-0.8) 10^3/uL Absolute Eosinophils (0.0-0.7) 10^3/uL Absolute Basophils (0.0-0.2) 10^3/uL RBC Morphology PT (9.3-11.0) sec INR (0.9-1.1) APTT (21.5-31.9) sec VBG pH (7.31-7.41) VBG pCO2 (41-51) mmHg VBG pO2 mmHg VBG HCO3 (23-28) mmol/L VBG Total CO2 (24-29) mmol/L VBG O2 Saturation % VBG Base Excess (-2-3) mmol/L VBG Lactate (0.6-1.4) mmol/L 1.9 H Sodium (136-145) mmol/L 132 L Potassium (3.5-5.1) mmol/L 3.2 L Chloride (98-107) mmol/L 98 Carbon Dioxide (21.0-32.0) mmol/L 20.5 L Anion Gap (3-11) mmol/L 13.5 H BUN (7-18) mg/dL 27 H Creatinine (0.70-1.30) mg/dL 2.2 H Est GFR (CKD-EPI 2020) (mL/min/1.73m2) 34.51 Glucose (74-106) mg/dL 210 H Hemoglobin A1c (<5.7) % Calcium (8.5-10.1) mg/dL 6.9 L Magnesium (1.8-2.4) mg/dL Total Bilirubin (0.2-1.0) mg/dL 0.5 AST (15-37) U/L 79 H ALT (16-63) U/L 62 Alkaline Phosphatase (46-116) U/L 81 Troponin I (<or=60) ng/L < 50 C-Reactive Protein (0.0-0.3) mg/dL Total Protein (6.4-8.2) g/dL 6.4 Albumin (3.4-5.0) g/dL 2.0 L Vitamin B12 (193-986) pg/mL Procalcitonin ng/mL Urine Color (Yellow) Urine Clarity (Clear) Urine pH (5-8) Ur Specific [place] (1.005-1.025) Urine Protein (Negative) mg/dL Urine Ketones (Negative) mg/dL Urine Blood (Negative) Urine Nitrite (Negative) Urine Bilirubin (Negative) Urine Urobilinogen (Up to 0.2) mg/dL Ur Leukocyte Esterase (Negative) Urine RBC (0-2) HPF Urine WBC (0-5) HPF Ur Epithelial Cells (Negative) HPF Urine Crystals (Negative) HPF Urine Bacteria (Negative) HPF Urine Casts (Negative) LPF Urine Mucus (Negative) Ur Culture Indicated? Urine Glucose (Negative) mg/dL Stl C.difficile Tox PCR (Negative) Random Vancomycin COVID-19 Source SARS-CoV-2 (PCR) (Negative) Influenza Type A (PCR) (Negative) Influenza Type B (PCR) (Negative) Urine Legionella Ag (Negative) RSV (PCR) (Negative) Add-On Test Request Range/Units 10/09/22 10/09/22 10/09/22 15:25 20:13 Unknown WBC (4.4-10.8) 10^3/uL RBC (4.36-5.78) 10^6/uL Hgb (13.5-17.5) g/dL Hct (40.0-50.0) % MCV (80-95) fL MCH (27.0-33.0) pg MCHC (32.0-36.0) % RDW (11.8-14.1) % Plt Count (130-400) 10^3/uL MPV (8.0-11.0) fL Immature Gran % Neutrophils % Band Neutrophils % Lymphocytes % Monocytes % Eosinophils % Basophils % Nucleated RBC % (0.0-0.3) % Absolute Neutrophils (1.2-6.7) 10^3/uL Absolute Lymphocytes (1.2-3.4) 10^3/uL Absolute Monocytes (0.1-0.8) 10^3/uL Absolute Eosinophils (0.0-0.7) 10^3/uL Absolute Basophils (0.0-0.2) 10^3/uL RBC Morphology PT (9.3-11.0) sec INR (0.9-1.1) APTT (21.5-31.9) sec VBG pH (7.31-7.41) VBG pCO2 (41-51) mmHg VBG pO2 mmHg VBG HCO3 (23-28) mmol/L VBG Total CO2 (24-29) mmol/L VBG O2 Saturation % VBG Base Excess (-2-3) mmol/L VBG Lactate (0.6-1.4) mmol/L 1.9 H Sodium (136-145) mmol/L Potassium (3.5-5.1) mmol/L Chloride (98-107) mmol/L Carbon Dioxide (21.0-32.0) mmol/L Anion Gap (3-11) mmol/L BUN (7-18) mg/dL Creatinine (0.70-1.30) mg/dL Est GFR (CKD-EPI 2020) (mL/min/1.73m2) Glucose (74-106) mg/dL Hemoglobin A1c (<5.7) % Calcium (8.5-10.1) mg/dL Magnesium (1.8-2.4) mg/dL 1.7 L Total Bilirubin (0.2-1.0) mg/dL AST (15-37) U/L ALT (16-63) U/L Alkaline Phosphatase (46-116) U/L Troponin I (<or=60) ng/L C-Reactive Protein (0.0-0.3) mg/dL Total Protein (6.4-8.2) g/dL Albumin (3.4-5.0) g/dL Vitamin B12 (193-986) pg/mL Procalcitonin ng/mL Urine Color (Yellow) Urine Clarity (Clear) Urine pH (5-8) Ur Specific [place] (1.005-1.025) Urine Protein (Negative) mg/dL Urine Ketones (Negative) mg/dL Urine Blood (Negative) Urine Nitrite (Negative) Urine Bilirubin (Negative) Urine Urobilinogen (Up to 0.2) mg/dL Ur Leukocyte Esterase (Negative) Urine RBC (0-2) HPF Urine WBC (0-5) HPF Ur Epithelial Cells (Negative) HPF Urine Crystals (Negative) HPF Urine Bacteria (Negative) HPF Urine Casts (Negative) LPF Urine Mucus (Negative) Ur Culture Indicated? Urine Glucose (Negative) mg/dL Stl C.difficile Tox PCR (Negative) Random Vancomycin COVID-19 Source SARS-CoV-2 (PCR) (Negative) Influenza Type A (PCR) (Negative) Influenza Type B (PCR) (Negative) Urine Legionella Ag (Negative) RSV (PCR) (Negative) Add-On Test Request DONE Range/Units 10/10/22 10/10/22 10/10/22 05:58 05:58 05:58 WBC (4.4-10.8) 10^3/uL 17.71 H RBC (4.36-5.78) 10^6/uL 4.17 L Hgb (13.5-17.5) g/dL 12.8 L D Hct (40.0-50.0) % 37.3 L MCV (80-95) fL 89 MCH (27.0-33.0) pg 30.7 MCHC (32.0-36.0) % 34.3 RDW (11.8-14.1) % 13.0 Plt Count (130-400) 10^3/uL 73 L MPV (8.0-11.0) fL Immature Gran % 0.0 Neutrophils % 92.0 Band Neutrophils % 3 Lymphocytes % 3.0 Monocytes % 2.0 Eosinophils % 0.0 Basophils % 0.0 Nucleated RBC % (0.0-0.3) % 0.0 Absolute Neutrophils (1.2-6.7) 10^3/uL 16.82 H Absolute Lymphocytes (1.2-3.4) 10^3/uL 0.53 L Absolute Monocytes (0.1-0.8) 10^3/uL 0.35 Absolute Eosinophils (0.0-0.7) 10^3/uL 0.00 Absolute Basophils (0.0-0.2) 10^3/uL 0.00 RBC Morphology Normal PT (9.3-11.0) sec INR (0.9-1.1) APTT (21.5-31.9) sec VBG pH (7.31-7.41) VBG pCO2 (41-51) mmHg VBG pO2 mmHg VBG HCO3 (23-28) mmol/L VBG Total CO2 (24-29) mmol/L VBG O2 Saturation % VBG Base Excess (-2-3) mmol/L VBG Lactate (0.6-1.4) mmol/L Sodium (136-145) mmol/L 136 Potassium (3.5-5.1) mmol/L 3.5 Chloride (98-107) mmol/L 101 Carbon Dioxide (21.0-32.0) mmol/L 21.4 Anion Gap (3-11) mmol/L 13.6 H BUN (7-18) mg/dL 26 H Creatinine (0.70-1.30) mg/dL 1.8 H Est GFR (CKD-EPI 2020) (mL/min/1.73m2) 43.90 Glucose (74-106) mg/dL 256 H Hemoglobin A1c (<5.7) % 6.4 H Calcium (8.5-10.1) mg/dL 7.3 L Magnesium (1.8-2.4) mg/dL 2.3 Total Bilirubin (0.2-1.0) mg/dL AST (15-37) U/L ALT (16-63) U/L Alkaline Phosphatase (46-116) U/L Troponin I (<or=60) ng/L C-Reactive Protein (0.0-0.3) mg/dL > 25.00 H Total Protein (6.4-8.2) g/dL Albumin (3.4-5.0) g/dL Vitamin B12 (193-986) pg/mL Procalcitonin ng/mL Urine Color (Yellow) Urine Clarity (Clear) Urine pH (5-8) Ur Specific [place] (1.005-1.025) Urine Protein (Negative) mg/dL Urine Ketones (Negative) mg/dL Urine Blood (Negative) Urine Nitrite (Negative) Urine Bilirubin (Negative) Urine Urobilinogen (Up to 0.2) mg/dL Ur Leukocyte Esterase (Negative) Urine RBC (0-2) HPF Urine WBC (0-5) HPF Ur Epithelial Cells (Negative) HPF Urine Crystals (Negative) HPF Urine Bacteria (Negative) HPF Urine Casts (Negative) LPF Urine Mucus (Negative) Ur Culture Indicated? Urine Glucose (Negative) mg/dL Stl C.difficile Tox PCR (Negative) Random Vancomycin COVID-19 Source SARS-CoV-2 (PCR) (Negative) Influenza Type A (PCR) (Negative) Influenza Type B (PCR) (Negative) Urine Legionella Ag (Negative) RSV (PCR) (Negative) Add-On Test Request Range/Units 10/10/22 10/10/22 10/10/22 05:58 05:58 05:58 WBC (4.4-10.8) 10^3/uL RBC (4.36-5.78) 10^6/uL Hgb (13.5-17.5) g/dL Hct (40.0-50.0) % MCV (80-95) fL MCH (27.0-33.0) pg MCHC (32.0-36.0) % RDW (11.8-14.1) % Plt Count (130-400) 10^3/uL MPV (8.0-11.0) fL Immature Gran % Neutrophils % Band Neutrophils % Lymphocytes % Monocytes % Eosinophils % Basophils % Nucleated RBC % (0.0-0.3) % Absolute Neutrophils (1.2-6.7) 10^3/uL Absolute Lymphocytes (1.2-3.4) 10^3/uL Absolute Monocytes (0.1-0.8) 10^3/uL Absolute Eosinophils (0.0-0.7) 10^3/uL Absolute Basophils (0.0-0.2) 10^3/uL RBC Morphology PT (9.3-11.0) sec INR (0.9-1.1) APTT (21.5-31.9) sec VBG pH (7.31-7.41) VBG pCO2 (41-51) mmHg VBG pO2 mmHg VBG HCO3 (23-28) mmol/L VBG Total CO2 (24-29) mmol/L VBG O2 Saturation % VBG Base Excess (-2-3) mmol/L VBG Lactate (0.6-1.4) mmol/L Sodium (136-145) mmol/L Potassium (3.5-5.1) mmol/L Chloride (98-107) mmol/L Carbon Dioxide (21.0-32.0) mmol/L Anion Gap (3-11) mmol/L BUN (7-18) mg/dL Creatinine (0.70-1.30) mg/dL Est GFR (CKD-EPI 2020) (mL/min/1.73m2) Glucose (74-106) mg/dL Hemoglobin A1c (<5.7) % Calcium (8.5-10.1) mg/dL Magnesium (1.8-2.4) mg/dL Total Bilirubin (0.2-1.0) mg/dL AST (15-37) U/L ALT (16-63) U/L Alkaline Phosphatase (46-116) U/L Troponin I (<or=60) ng/L < 50 C-Reactive Protein (0.0-0.3) mg/dL Total Protein (6.4-8.2) g/dL Albumin (3.4-5.0) g/dL Vitamin B12 (193-986) pg/mL 459 Procalcitonin ng/mL Urine Color (Yellow) Urine Clarity (Clear) Urine pH (5-8) Ur Specific [place] (1.005-1.025) Urine Protein (Negative) mg/dL Urine Ketones (Negative) mg/dL Urine Blood (Negative) Urine Nitrite (Negative) Urine Bilirubin (Negative) Urine Urobilinogen (Up to 0.2) mg/dL Ur Leukocyte Esterase (Negative) Urine RBC (0-2) HPF Urine WBC (0-5) HPF Ur Epithelial Cells (Negative) HPF Urine Crystals (Negative) HPF Urine Bacteria (Negative) HPF Urine Casts (Negative) LPF Urine Mucus (Negative) Ur Culture Indicated? Urine Glucose (Negative) mg/dL Stl C.difficile Tox PCR (Negative) Random Vancomycin COVID-19 Source SARS-CoV-2 (PCR) (Negative) Influenza Type A (PCR) (Negative) Influenza Type B (PCR) (Negative) Urine Legionella Ag (Negative) RSV (PCR) (Negative) Add-On Test Request DONE Range/Units 10/10/22 10/10/22 10/10/22 09:36 10:30 13:00 WBC (4.4-10.8) 10^3/uL RBC (4.36-5.78) 10^6/uL Hgb (13.5-17.5) g/dL Hct (40.0-50.0) % MCV (80-95) fL MCH (27.0-33.0) pg MCHC (32.0-36.0) % RDW (11.8-14.1) % Plt Count (130-400) 10^3/uL MPV (8.0-11.0) fL Immature Gran % Neutrophils % Band Neutrophils % Lymphocytes % Monocytes % Eosinophils % Basophils % Nucleated RBC % (0.0-0.3) % Absolute Neutrophils (1.2-6.7) 10^3/uL Absolute Lymphocytes (1.2-3.4) 10^3/uL Absolute Monocytes (0.1-0.8) 10^3/uL Absolute Eosinophils (0.0-0.7) 10^3/uL Absolute Basophils (0.0-0.2) 10^3/uL RBC Morphology PT (9.3-11.0) sec INR (0.9-1.1) APTT (21.5-31.9) sec VBG pH (7.31-7.41) VBG pCO2 (41-51) mmHg VBG pO2 mmHg VBG HCO3 (23-28) mmol/L VBG Total CO2 (24-29) mmol/L VBG O2 Saturation % VBG Base Excess (-2-3) mmol/L VBG Lactate (0.6-1.4) mmol/L 2.4 H* 1.6 H Sodium (136-145) mmol/L Potassium (3.5-5.1) mmol/L Chloride (98-107) mmol/L Carbon Dioxide (21.0-32.0) mmol/L Anion Gap (3-11) mmol/L BUN (7-18) mg/dL Creatinine (0.70-1.30) mg/dL Est GFR (CKD-EPI 2020) (mL/min/1.73m2) Glucose (74-106) mg/dL Hemoglobin A1c (<5.7) % Calcium (8.5-10.1) mg/dL Magnesium (1.8-2.4) mg/dL Total Bilirubin (0.2-1.0) mg/dL AST (15-37) U/L ALT (16-63) U/L Alkaline Phosphatase (46-116) U/L Troponin I (<or=60) ng/L C-Reactive Protein (0.0-0.3) mg/dL Total Protein (6.4-8.2) g/dL Albumin (3.4-5.0) g/dL Vitamin B12 (193-986) pg/mL Procalcitonin ng/mL Urine Color (Yellow) Urine Clarity (Clear) Urine pH (5-8) Ur Specific [place] (1.005-1.025) Urine Protein (Negative) mg/dL Urine Ketones (Negative) mg/dL Urine Blood (Negative) Urine Nitrite (Negative) Urine Bilirubin (Negative) Urine Urobilinogen (Up to 0.2) mg/dL Ur Leukocyte Esterase (Negative) Urine RBC (0-2) HPF Urine WBC (0-5) HPF Ur Epithelial Cells (Negative) HPF Urine Crystals (Negative) HPF Urine Bacteria (Negative) HPF Urine Casts (Negative) LPF Urine Mucus (Negative) Ur Culture Indicated? Urine Glucose (Negative) mg/dL Stl C.difficile Tox PCR (Negative) Random Vancomycin COVID-19 Source SARS-CoV-2 (PCR) (Negative) Influenza Type A (PCR) (Negative) Influenza Type B (PCR) (Negative) Urine Legionella Ag (Negative) Positive A RSV (PCR) (Negative) Add-On Test Request Range/Units 10/10/22 10/11/22 10/11/22 14:15 05:40 05:40 WBC (4.4-10.8) 10^3/uL RBC (4.36-5.78) 10^6/uL Hgb (13.5-17.5) g/dL Hct (40.0-50.0) % MCV (80-95) fL MCH (27.0-33.0) pg MCHC (32.0-36.0) % RDW (11.8-14.1) % Plt Count (130-400) 10^3/uL MPV (8.0-11.0) fL Immature Gran % Neutrophils % Band Neutrophils % Lymphocytes % Monocytes % Eosinophils % Basophils % Nucleated RBC % (0.0-0.3) % Absolute Neutrophils (1.2-6.7) 10^3/uL Absolute Lymphocytes (1.2-3.4) 10^3/uL Absolute Monocytes (0.1-0.8) 10^3/uL Absolute Eosinophils (0.0-0.7) 10^3/uL Absolute Basophils (0.0-0.2) 10^3/uL RBC Morphology PT (9.3-11.0) sec INR (0.9-1.1) APTT (21.5-31.9) sec VBG pH (7.31-7.41) VBG pCO2 (41-51) mmHg VBG pO2 mmHg VBG HCO3 (23-28) mmol/L VBG Total CO2 (24-29) mmol/L VBG O2 Saturation % VBG Base Excess (-2-3) mmol/L VBG Lactate (0.6-1.4) mmol/L Sodium (136-145) mmol/L 139 Potassium (3.5-5.1) mmol/L 3.7 Chloride (98-107) mmol/L 106 Carbon Dioxide (21.0-32.0) mmol/L 24.8 Anion Gap (3-11) mmol/L 8.2 BUN (7-18) mg/dL 31 H Creatinine (0.70-1.30) mg/dL 1.3 Est GFR (CKD-EPI 2020) (mL/min/1.73m2) 64.88 Glucose (74-106) mg/dL 264 H Hemoglobin A1c (<5.7) % Calcium (8.5-10.1) mg/dL 7.0 L Magnesium (1.8-2.4) mg/dL 2.2 Total Bilirubin (0.2-1.0) mg/dL AST (15-37) U/L ALT (16-63) U/L Alkaline Phosphatase (46-116) U/L Troponin I (<or=60) ng/L C-Reactive Protein (0.0-0.3) mg/dL 14.83 H Total Protein (6.4-8.2) g/dL Albumin (3.4-5.0) g/dL Vitamin B12 (193-986) pg/mL Procalcitonin ng/mL 12.6 Urine Color (Yellow) Urine Clarity (Clear) Urine pH (5-8) Ur Specific [place] (1.005-1.025) Urine Protein (Negative) mg/dL Urine Ketones (Negative) mg/dL Urine Blood (Negative) Urine Nitrite (Negative) Urine Bilirubin (Negative) Urine Urobilinogen (Up to 0.2) mg/dL Ur Leukocyte Esterase (Negative) Urine RBC (0-2) HPF Urine WBC (0-5) HPF Ur Epithelial Cells (Negative) HPF Urine Crystals (Negative) HPF Urine Bacteria (Negative) HPF Urine Casts (Negative) LPF Urine Mucus (Negative) Ur Culture Indicated? Urine Glucose (Negative) mg/dL Stl C.difficile Tox PCR (Negative) Negative Random Vancomycin COVID-19 Source SARS-CoV-2 (PCR) (Negative) Influenza Type A (PCR) (Negative) Influenza Type B (PCR) (Negative) Urine Legionella Ag (Negative) RSV (PCR) (Negative) Add-On Test Request Range/Units 10/11/22 10/11/22 10/11/22 05:40 05:40 05:40 WBC (4.4-10.8) 10^3/uL 15.76 H RBC (4.36-5.78) 10^6/uL 3.75 L Hgb (13.5-17.5) g/dL 11.8 L Hct (40.0-50.0) % 33.7 L MCV (80-95) fL 90 MCH (27.0-33.0) pg 31.5 MCHC (32.0-36.0) % 35.0 RDW (11.8-14.1) % 13.4 Plt Count (130-400) 10^3/uL 84 L MPV (8.0-11.0) fL Immature Gran % 0.9 Neutrophils % 92.3 Band Neutrophils % Lymphocytes % 2.6 Monocytes % 4.1 Eosinophils % 0.0 Basophils % 0.1 Nucleated RBC % (0.0-0.3) % 0.0 Absolute Neutrophils (1.2-6.7) 10^3/uL 14.55 H Absolute Lymphocytes (1.2-3.4) 10^3/uL 0.41 L Absolute Monocytes (0.1-0.8) 10^3/uL 0.65 Absolute Eosinophils (0.0-0.7) 10^3/uL 0.00 Absolute Basophils (0.0-0.2) 10^3/uL 0.02 RBC Morphology Normal PT (9.3-11.0) sec INR (0.9-1.1) APTT (21.5-31.9) sec VBG pH (7.31-7.41) VBG pCO2 (41-51) mmHg VBG pO2 mmHg VBG HCO3 (23-28) mmol/L VBG Total CO2 (24-29) mmol/L VBG O2 Saturation % VBG Base Excess (-2-3) mmol/L VBG Lactate (0.6-1.4) mmol/L Sodium (136-145) mmol/L Potassium (3.5-5.1) mmol/L Chloride (98-107) mmol/L Carbon Dioxide (21.0-32.0) mmol/L Anion Gap (3-11) mmol/L BUN (7-18) mg/dL Creatinine (0.70-1.30) mg/dL Est GFR (CKD-EPI 2020) (mL/min/1.73m2) Glucose (74-106) mg/dL Hemoglobin A1c (<5.7) % Calcium (8.5-10.1) mg/dL Magnesium (1.8-2.4) mg/dL Total Bilirubin (0.2-1.0) mg/dL AST (15-37) U/L ALT (16-63) U/L Alkaline Phosphatase (46-116) U/L Troponin I (<or=60) ng/L C-Reactive Protein (0.0-0.3) mg/dL Total Protein (6.4-8.2) g/dL Albumin (3.4-5.0) g/dL 1.7 L Vitamin B12 (193-986) pg/mL Procalcitonin ng/mL Urine Color (Yellow) Urine Clarity (Clear) Urine pH (5-8) Ur Specific [place] (1.005-1.025) Urine Protein (Negative) mg/dL Urine Ketones (Negative) mg/dL Urine Blood (Negative) Urine Nitrite (Negative) Urine Bilirubin (Negative) Urine Urobilinogen (Up to 0.2) mg/dL Ur Leukocyte Esterase (Negative) Urine RBC (0-2) HPF Urine WBC (0-5) HPF Ur Epithelial Cells (Negative) HPF Urine Crystals (Negative) HPF Urine Bacteria (Negative) HPF Urine Casts (Negative) LPF Urine Mucus (Negative) Ur Culture Indicated? Urine Glucose (Negative) mg/dL Stl C.difficile Tox PCR (Negative) Random Vancomycin COVID-19 Source SARS-CoV-2 (PCR) (Negative) Influenza Type A (PCR) (Negative) Influenza Type B (PCR) (Negative) Urine Legionella Ag (Negative) RSV (PCR) (Negative) Add-On Test Request DONE Range/Units 10/11/22 10/11/22 06:35 07:45 WBC (4.4-10.8) 10^3/uL RBC (4.36-5.78) 10^6/uL Hgb (13.5-17.5) g/dL Hct (40.0-50.0) % MCV (80-95) fL MCH (27.0-33.0) pg MCHC (32.0-36.0) % RDW (11.8-14.1) % Plt Count (130-400) 10^3/uL MPV (8.0-11.0) fL Immature Gran % Neutrophils % Band Neutrophils % Lymphocytes % Monocytes % Eosinophils % Basophils % Nucleated RBC % (0.0-0.3) % Absolute Neutrophils (1.2-6.7) 10^3/uL Absolute Lymphocytes (1.2-3.4) 10^3/uL Absolute Monocytes (0.1-0.8) 10^3/uL Absolute Eosinophils (0.0-0.7) 10^3/uL Absolute Basophils (0.0-0.2) 10^3/uL RBC Morphology PT (9.3-11.0) sec INR (0.9-1.1) APTT (21.5-31.9) sec VBG pH (7.31-7.41) VBG pCO2 (41-51) mmHg VBG pO2 mmHg VBG HCO3 (23-28) mmol/L VBG Total CO2 (24-29) mmol/L VBG O2 Saturation % VBG Base Excess (-2-3) mmol/L VBG Lactate (0.6-1.4) mmol/L Sodium (136-145) mmol/L Potassium (3.5-5.1) mmol/L Chloride (98-107) mmol/L Carbon Dioxide (21.0-32.0) mmol/L Anion Gap (3-11) mmol/L BUN (7-18) mg/dL Creatinine (0.70-1.30) mg/dL Est GFR (CKD-EPI 2020) (mL/min/1.73m2) Glucose (74-106) mg/dL Hemoglobin A1c (<5.7) % Calcium (8.5-10.1) mg/dL Magnesium (1.8-2.4) mg/dL Total Bilirubin (0.2-1.0) mg/dL AST (15-37) U/L ALT (16-63) U/L Alkaline Phosphatase (46-116) U/L Troponin I (<or=60) ng/L C-Reactive Protein (0.0-0.3) mg/dL Total Protein (6.4-8.2) g/dL Albumin (3.4-5.0) g/dL Vitamin B12 (193-986) pg/mL Procalcitonin ng/mL Urine Color (Yellow) Urine Clarity (Clear) Urine pH (5-8) Ur Specific [place] (1.005-1.025) Urine Protein (Negative) mg/dL Urine Ketones (Negative) mg/dL Urine Blood (Negative) Urine Nitrite (Negative) Urine Bilirubin (Negative) Urine Urobilinogen (Up to 0.2) mg/dL Ur Leukocyte Esterase (Negative) Urine RBC (0-2) HPF Urine WBC (0-5) HPF Ur Epithelial Cells (Negative) HPF Urine Crystals (Negative) HPF Urine Bacteria (Negative) HPF Urine Casts (Negative) LPF Urine Mucus (Negative) Ur Culture Indicated? Urine Glucose (Negative) mg/dL Stl C.difficile Tox PCR (Negative) Random Vancomycin Cancelled Cancelled COVID-19 Source SARS-CoV-2 (PCR) (Negative) Influenza Type A (PCR) (Negative) Influenza Type B (PCR) (Negative) Urine Legionella Ag (Negative) RSV (PCR) (Negative) Add-On Test Request
[2022-10-12 07:27] VITALS: BP 130/86; PULSE 100; RESP 18; TEMP 37; O2SAT 92
[2022-10-12 07:31] LABS: Abs Immature Grans 0.54 10^3/uL (0.0-0.06); Absolute Basophil Count 0.05 10^3/uL (0.0-0.2); Absolute Eosinophil Count 0.01 10^3/uL (0.0-0.7); Absolute Lymphocyte Count 0.78 10^3/uL (1.2-3.4); Absolute Monocyte Count 0.78 10^3/uL (0.1-0.8); Absolute Neutrophil Count 9.83 10^3/uL (1.2-6.7); Basophils % 0.4; Eosinophils % 0.1; HCT 34.1 % (40.0-50.0); HGB 11.8 g/dL (13.5-17.5); Immature Grans % 4.5; Lymphocytes % 6.5; MCH 30.9 pg (27.0-33.0); MCHC 34.6 % (32.0-36.0); MCV 89 fL (80-95); Monocytes % 6.5; Platelet Count 132 10^3/uL (130-400); RBC 3.82 10^6/uL (4.36-5.78); RDW 13.2 % (11.8-14.1); RDW-SD 43.6 fL; WBC 11.99 10^3/uL (4.4-10.8)
[2022-10-12] MEDS: Budesonide/Formoterol 160/4.5 6 GM 60 PUFF INH IH (07:36)
[2022-10-12 07:37] LABS: Anion Gap 6.6 mmol/L (3-11); BUN 26 mg/dL (7-18); C-Reactive Protein 9.05 mg/dL (0.0-0.3); CO2 26.4 mmol/L (21.0-32.0); CREATININE 1.1 mg/dL (0.70-1.30); Calcium 7.2 mg/dL (8.5-10.1); Chloride 107 mmol/L (98-107); Estimated GFR 79.28 (mL/min/1.73m2); Glucose 230 mg/dL (74-106); Magnesium 2.2 mg/dL (1.8-2.4); Potassium 3.4 mmol/L (3.5-5.1); Sodium 140 mmol/L (136-145)
[2022-10-12] MEDS: Omeprazole 20 MG CAPCR 40 MG PO (07:42)
[2022-10-12] MEDS: Metoprolol 12.5 MG TAB PO (07:42)
[2022-10-12] MEDS: predniSONE 20 MG TAB 40 MG PO (07:42)
[2022-10-12] MEDS: Cyanocobalamin 500 MCG TAB PO (07:42)
[2022-10-12] MEDS: Ketoconazole 2% CREAM 15 GM TUBE TP (07:42)
[2022-10-12] MEDS: Normal Saline Flush 10 ML SYR IVP (07:43)
[2022-10-12] MEDS: Insulin Aspart 300 UNITS/3 ML PEN SC (07:51)
[2022-10-12 08:02] LABS: Diff Comment Agrees w/ Instrument; RBC Morphology Normal
[2022-10-12 08:05] VITALS: PULSE 113
--- NOTE | 2022-10-12 08:34 | DSE_ITS ---
Date of service: 10/12/22 Time of Service: 08:34 DS: Diagnosis Discharge Diagnosis (1) Legionella pneumonia: Status: Acute (2) Septic shock: Status: Resolved (3) Atrial fibrillation with rapid ventricular response: Status: Acute (4) Acute kidney injury: Status: Resolved (5) Pleural effusion, right: Status: Acute (6) Adenopathy, hilar: Status: Acute (7) Asthma: Status: Chronic (8) Cirrhosis: Status: Chronic (9) Type 2 diabetes mellitus: Status: Chronic Asessment and Plan: A1C 6.4 With steroid induced hyperglycemia here (10) Hypokalemia: Status: Acute (11) Hyponatremia: Status: Resolved (12) Thrombocytopenia: Status: Resolved (13) GERD (gastroesophageal reflux disease): Status: Chronic (14) Lactic acidosis: Status: Resolved (15) Depression: Status: Chronic (16) Hypomagnesemia: Status: Resolved (17) Diarrhea: Status: Resolved (18) Hypocalcemia: Status: Ruled-out Asessment and Plan: Corrected Ca 9.0 on discharge. (19) Proteinuria: Status: Acute (20) Hematuria: Status: Acute (21) Nocturnal hypoxia: Status: Acute Asessment and Plan: The patient refuses exercise oximetry or home oxygen. He refused supplemental oxygen in our facility. Suspected EVELIO. 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 The initial impression was aspiration pneumonia. The patient was started on zosyn, doxycycline empirically, as well as IVF and, when initial resuscitation was not successful in bringing up BPs appropriately, phenylephrine for a vasopressor because he also went into rapid Atrial fibrillation. A L subclavian CVL was inserted by Dr Dickerson on day of admission. Antibiotic regimen was expanded to include vancomycin once we found out about the h/o empyema/VATS until we had more information about his cultures on the [facility] admission (all negative). Antibiotics were then changed to cefepime + doxycycline + vancomycin. Blood cultures have been negative. HR did not slow down significantly in response to IV lopressor initially and BPs did not tolerate increase in beta janine dose, so the patient required a digoxin load on this admission, but as the BPs improved and phenylephrine was discontinued, we were able to reintroduce metoprolol more successfully. Steroids were also used as the patient did have evidence of wheezing. The patient was evaluated by Dr Huerta of pulmonology/critical care, and it is felt that the patient likely has asthma, for which an inhaled corticosteroid was also added to the regimen. The patient clinically steadily improved. He was transferred out of the ICU on 10/11/22. His BPs had tolerated addition of beta blockers. His legionella urine antigen had come back positive. CT chest was ordered and confirms extensive RLL infiltrate in addition to a small pleural effusion. His echo was unremarkable. His antibiotic was changed to levofloxacin. The patient was noted to have episodes of intermittent hypoxia, primarily at night, but firmly and repeatedly refused oxygen therapy. Today, the patient verbalizes a strong desire to leave [place], stating that there is nothing I can do to convince him to stay. He verbalizes understanding that not completing antibiotic therapy might result in his . I am sending prescriptions for 9 more days of levofloxacin, a steroid taper, inhalers, antitussives, metformin, metoprolol to his pharmacy. He is not interested in doing an exercise oxymetry test today. He is being referred to a new PCP per his request as well as to Dr Huerta for follow up. [place] [facility] was notified of his diagnosis of Legionella pneumonia. Care for patient as well as completion of his discharge summary on day of discharge took 45 minutes. Home Meds and New Rx's Prescriptions: New budesonide-formoterol [Symbicort] 160-4.5 mcg/actuation Hfa Aerosol Inhaler 2 puff inhalation BID Qty: 10.2 0RF cyanocobalamin (vitamin B-12) [Vitamin B-12] 500 mcg Tablet 500 mcg PO DAILY Qty: 30 0RF levalbuterol tartrate 45 mcg/actuation Hfa Aerosol Inhaler 2 puff inhalation Q4H PRN PRN (Reason: shortness of breath or wheezing) Qty: 15 0RF nicotine 14 mg/24 hr Patch 24 Hour 14 mg transdermal DAILY PRN PRNQty: 30 0RF omeprazole 20 mg Capsule,Delayed Release(Dr/Ec) 40 mg PO DAILY@0730 Qty: 30 0RF metformin 500 mg tablet 500 mg PO DAILY Qty: 30 0RF Lactobacillus acidophilus Capsule 1,000 mmu cells PO DAILY Qty: 30 0RF metoprolol succinate [Toprol XL] 25 mg tablet extended release 24 hr 25 mg PO DAILY Qty: 30 0RF levofloxacin 750 mg tablet 750 mg PO DAILY@1400 Qty: 9 0RF Rx Instructions: first dose this afternoon at 2 pm prednisone 20 mg tablet See Rx Instructions .ROUTE .COMPLEX Qty: 9 0RF Rx Instructions: Take 40 mg (2 tabs) by mouth x 2 more days, then take 20 mg (1 tab) by mouth x 3 days, then take 10 mg (1/2 tab) by mouth x 3 days, then stop benzonatate 200 mg capsule 200 mg PO BID-TID PRN (Reason: cough) Qty: 30 0RF Discharge Instructions Instructions: Prednisone (By mouth), Metformin (By mouth), Levofloxacin (By mouth), Levalbuterol (By breathing), A-fib (Atrial Fibrillation) (DC), Asthma (DC), Meal Planning with Diabetes Exchanges (DC), Legionnaires Disease (DC), Prediabetes (DC), Metoprolol (By mouth) Additional Instructions: You should not leave the hospital and are leaving against medical advice. Untreated pneumonia could result in . It is extremely important you finish your antibiotics (levofloxacin) as prescribed. Finish your prednisone taper as prescribed. Return to the hospital with any fever, bleeding, chest pain, or worsening shortness of breath. Follow up with PCP in 1-2 weeks (that office will reach out to you) - Dr Toscano. Follow up with Dr Huerta (pulmonology) in 1-2 weeks. Bloodwork next Tuesday Stand Alone Forms: Nursing Discharge Form Referrals: Vicki Toscano MD [ [facility] STAFF PHYSICIAN] - (Office will call with appointment. ) Maribell Huerta MD [ [facility] STAFF PHYSICIAN] - (Office will call you with follow up appointment.) Activity:: Activity as Tolerated Equipment/Supplies:: No Equipment Needed Diet:: Carb Counting Discharge Orders Discharge Orders: Discharge Order (Routine); Ordered 10/12/22 Ordered By: Tara Weiss Other Ambulatory Orders: Basic Metabolic Panel (Routine) Timeframe: 20221018 Facility: [facility] - Location: Laboratory Outpatient - [facility] Ordered By: Tara Weiss Magnesium (Routine) Timeframe: 20221018 Facility: [facility] - Location: Laboratory Outpatient - [facility] Ordered By: Tara Weiss C-Reactive Protein (Routine) Timeframe: 20221018 Facility: [facility] - Location: Laboratory Outpatient - [facility] Ordered By: Tara Weiss Liver Panel (Routine) Facility: [facility] - Location: Laboratory Outpatient - [facility] Ordered By: Tara Weiss Discharge Data Discharge Date/Time-TO BE ENTERED AT DEPARTURE: 10/12/22 09:18 DS: Summary Time Spent with Patient providing and/or coordinating discharge services: Greater than 30 minutes Status at Discharge Functional status at discharge: independent ambulation Overall status at discharge: patient is progressing back to baseline Mental Status: mental status grossly normal Speech and Movement: speech and movement normal Mood: congruent mood Affect: normal affect Exam Narrative Exam Narrative: General: A&Ox3, NAD, on RA, [place], sitting up comfortably in a chair HEENT: EOMI, MMM Cardiovascular: irregularly irregular rhythm, no m/r/g Lungs: Expiratory wheezing B, quiet rales at B bases Gastrointestinal: soft, nontender, nondistended Extremities: no edema BLEs Psych Mental Status: mental status grossly normal Speech and Movement: speech and movement normal Mood: congruent mood Affect: normal affect DS: Data Vitals/I&O Vitals and I&O: Vital Signs Temperature 37.0 C 10/12/22 07:27 Temperature Source Tympanic 10/12/22 07:27 Pulse 100 H 10/12/22 07:27 Pulse Rhythm Regular 08/01/23 07:30 Pulse 103 H 10/11/22 06:01 Respiratory Rate 18 10/12/22 07:27 Respiratory Effort Normal, Non-Labored 10/12/22 07:30 Respiratory Depth Normal 10/12/22 07:30 Respiratory Pattern Normal 10/12/22 07:30 Blood Pressure 130/86 10/12/22 07:27 Blood Pressure Mean 84 10/11/22 06:01 Blood Pressure Position Sitting 10/11/22 07:00 Pulse Oximetry 92 10/12/22 07:27 Oxygen Delivery Method Room Air 10/12/22 07:27 Oxygen Flow Rate 0 10/12/22 07:27 Pain Level 0 10/12/22 07:27 Intake & Output 10/11/22 10/11/22 10/12/22 11:59 23:59 11:59 Intake Total 2205.001 / 4950.001 2745 / 4950.001 240 / 240 Output Total 1325 / 1625 300 / 1625 Balance 880.001 / 3325.001 2445 / 3325.001 240 / 240 Weight 108.5 kg Intake: IV 1725.001 / 3750.001 2025 / 3750.001 Oral 480 / 1200 720 / 1200 240 / 240 Output: Urine 1325 / 1625 300 / 1625 Other: Urine Color Yellow Yellow Urine Appearance Clear Clear Clear Urine Odor Normal Comment abebe to gravity Two voids. Pt voiding independently in toilet. Denies GI/ sx. pt voids independently Voiding Methods Toilet Data Completed and Pending Completed studies during hospitalization [Text1]: CXR 10/09/22: Large area of infiltrate in the right lower lobe.? No obvious pleural effusion.? Follow-up to resolution recommended. CXR 10/09/22; Persistent right lower lobe infiltrate.? Small amount of right pleural fluid. Left subclavian central line as described above.? There is no pneumothorax. CT chest 10/11/22: 1. There is extensive infiltrate involving all segments of the right lower lobe including the superior segment and there is also contiguous infiltrate in the posterior aspect of the right upper lobe.? There is presently no cavitation.? No obvious mass evident on this non infused study.? There is a small-moderate size ipsilateral right pleural effusion. 2. There is adenopathy in the ipsilateral hilum and subcarinal region as well as some pretracheal adenopathy.? Probably reactive. 3. Opposite-left lung is clear. Echo 10/11/22; Normal left ventricular wall thickness and chamber size.? Ejection fraction is 55 to 60%.? Wall motion is normal Normal right ventricular size and systolic function Both atria are normal in size No structural valvular abnormalities are identified There is mild mitral and tricuspid regurgitation.? Estimated right ventricular systolic pressure is 33 mmHg Dilated aortic root, 4 cm Labs on day of discharge: Labs from last 24 hours 10/12/22 10/12/22 10/12/22 09:00 06:30 06:30 WBC 11.99 H RBC 3.82 L Hgb 11.8 L Hct 34.1 L MCV 89 MCH 30.9 MCHC 34.6 RDW 13.2 Plt Count 132 D MPV Immature Gran % 4.5 Neutrophils % 82.0 Lymphocytes % 6.5 Monocytes % 6.5 Eosinophils % 0.1 Basophils % 0.4 Nucleated RBC % 0.0 Absolute Neutrophils 9.83 H Absolute Lymphocytes 0.78 L Absolute Monocytes 0.78 Absolute Eosinophils 0.01 Absolute Basophils 0.05 RBC Morphology Normal Sodium 140 Potassium 3.4 L Chloride 107 Carbon Dioxide 26.4 Anion Gap 6.6 BUN 26 H Creatinine 1.1 Est GFR (CKD-EPI 2020) 79.28 Glucose 230 H Calcium 7.2 L Magnesium 2.2 C-Reactive Protein 9.05 H Albumin Stool Campylobacter PCR Stool Salmonella PCR Stool Shigella PCR Vancomycin Trough Pending Urine Legionella Ag Shiga Toxin (PCR) Ur Strep pneumoniae Ag Add-On Test Request 10/11/22 10/11/22 10/10/22 05:40 05:40 14:15 WBC RBC Hgb Hct MCV MCH MCHC RDW Plt Count MPV Immature Gran % Neutrophils % Lymphocytes % Monocytes % Eosinophils % Basophils % Nucleated RBC % Absolute Neutrophils Absolute Lymphocytes Absolute Monocytes Absolute Eosinophils Absolute Basophils RBC Morphology Sodium Potassium Chloride Carbon Dioxide Anion Gap BUN Creatinine Est GFR (CKD-EPI 2020) Glucose Calcium Magnesium C-Reactive Protein Albumin 1.7 L Stool Campylobacter PCR Negative Stool Salmonella PCR Negative Stool Shigella PCR Negative Vancomycin Trough Urine Legionella Ag Shiga Toxin (PCR) Negative Ur Strep pneumoniae Ag Add-On Test Request DONE 10/10/22 10:30 WBC RBC Hgb Hct MCV MCH MCHC RDW Plt Count MPV Immature Gran % Neutrophils % Lymphocytes % Monocytes % Eosinophils % Basophils % Nucleated RBC % Absolute Neutrophils Absolute Lymphocytes Absolute Monocytes Absolute Eosinophils Absolute Basophils RBC Morphology Sodium Potassium Chloride Carbon Dioxide Anion Gap BUN Creatinine Est GFR (CKD-EPI 2020) Glucose Calcium Magnesium C-Reactive Protein Albumin Stool Campylobacter PCR Stool Salmonella PCR Stool Shigella PCR Vancomycin Trough Urine Legionella Ag Positive A Shiga Toxin (PCR) Ur Strep pneumoniae Ag Negative Add-On Test Request Preliminary micro results at discharge 10/09/22 12:10 Blood Culture - Preliminary Blood NO GROWTH 48 HOURS 10/09/22 11:55 Blood Culture - Preliminary Blood NO GROWTH 48 HOURS PFSH All Active Problems (Updated 10/12/22 @ 08:45 by Tara Weiss MD) Dilated aortic root (Acute) Adenopathy, hilar (Acute) Pleural effusion, right (Acute) Nocturnal hypoxia (Acute) Asthma (Chronic) Legionella pneumonia (Acute) Cirrhosis (Chronic) Hematuria (Acute) Proteinuria (Acute) Anemia (Chronic) Leukocytosis (Acute) Depression (Chronic) GERD (gastroesophageal reflux disease) (Chronic) Discharge planning issues (Acute) DVT prophylaxis (Acute) Hypokalemia (Acute) Type 2 diabetes mellitus (Chronic) Aspiration pneumonia (Acute) Sepsis (Acute) Atrial fibrillation with rapid ventricular response (Acute) Pneumonia (Acute) Medical History (Updated 10/12/22 @ 08:45 by Tara Weiss MD) Empyema s/p chest tubes, VATS, decortication [facility] 03/04 - all cultures without growth Hepatitis C Surgical History H/O hand surgery bilateral S/P appendectomy S/P right inguinal hernia repair Social History Smoking/Tobacco Use Status: Current every day Tobacco Type: cigarettes Smoking packs per day: 1 Smoking cigarettes per day: 20.0 Years smoked: 46 Smoking pack- years: 46.00 Counseling given: provider counseling, support medications, counseling >3 minutes and patient declined Smoking risk assessment performed?: Yes Alcohol Intake: former Drug use: Occasionally Substance use type: marijuana Housing: house Do you feel safe at home: Yes Do you feel safe in your relationship?: Yes Time Spent with Patient Time Spent with Patient: 45-69 minutes Time was spent: preparing to see the patient(eg.review tests), obtaining and/or reviewing separately otained hiistory, ordering medications,tests, procedures, referring, communicating with other health critical care rn, indepentently interpreting results, counseling the patient and care coordination
--- NOTE | 2022-10-12 12:45 | CMDISCH_ITS ---
Date of service: 10/12/22 Time of Service: 12:45 LACE Index Scoring Tool Questions: Length of Stay (in days): 3 Was the patient admitted via the E.D.?: Yes Comorbidities: Diabetes w/o Complication and Liver or Renal Disease E.D. Visits: 0 Answers: Total Score: 11 Risk of Readmission: High Risk Care Management Discharge Plan Reason for Hospitalization: sepsis and pneumonia Discharge Plan: Prateek left AMA this morning. CM made a follow up appointment for him using the tanning solution maker schedule on the day he arrived at the ED. He has an appointment with Dr. Shea at [facility] on 11/01/22 at 2:15pm. CM called Prateek and was unable to reach him; CM called Sherrill, his girlfriend (on HIPAA), and relayed this information for his hospital follow up appointment. CM processed two PA's for new medications, which were both approved via fax confirmation. Prateek was provided his discharge plan of care, and was transported via private vehicle. Patient/Family Education Needs: Review discharge instructions and limitations, discussion of self care needs including ask me three.
[2022-10-13 16:17] LABS: Mycoplasma Pneumoniae PCR Negative; Specimen source NASAL
== END 2022-10-12 09:18 | disposition left against medical advice (07) | DRG 871 ==
LOC: ER 13:29 → ICU 14:52 → MS 10-11 12:52
PROVIDERS: Admitting Provider Internal Medicine; Emergency Provider Student in an Organized Health Care Education/Training Program; Visit Provider Internal Medicine
DX: A41.9 Sepsis, unspecified organism (principal); A48.1 Legionnaires' disease; N17.9 Acute kidney failure, unspecified; E87.20 Acidosis, unspecified; E87.1 Hypo-osmolality and hyponatremia; J90 Pleural effusion, not elsewhere classified; I65.21 Occlusion and stenosis of right carotid artery; I48.91 Unspecified atrial fibrillation; D69.6 Thrombocytopenia, unspecified; E87.6 Hypokalemia; E83.42 Hypomagnesemia; D64.9 Anemia, unspecified; E83.51 Hypocalcemia; R31.9 Hematuria, unspecified; K74.60 Unspecified cirrhosis of liver; K21.9 Gastro-esophageal reflux disease without esophagitis; E66.9 Obesity, unspecified; Z68.30 Body mass index [BMI] 30.0-30.9, adult; F32.A Depression, unspecified; F17.210 Nicotine dependence, cigarettes, uncomplicated; E11.65 Type 2 diabetes mellitus with hyperglycemia; R59.0 Localized enlarged lymph nodes; R19.7 Diarrhea, unspecified; R09.02 Hypoxemia; G47.33 Obstructive sleep apnea (adult) (pediatric)
CPT/HCPCS: 36558; 36415; 36591; 51702; 71250; 80048; 80053; 82805; 84145; 87040; 87081; 87449; 87493; 87505; 87637; 93005; 93308; 94640; 96361; 96365; 99291; 71045; 71046; 80202; 81003; 81015; 82040; 82607; 83036; 83605; 83735; 84484; 85025; 85610; 85730; 86140; 87581; 87899; 93010; 93306; 94664; 94667; 94668; 94760; 99232; 99239; J0696; J1160; J1956; J2371; J2543; J2930; J3490; J7512; J7614; J7620

== ENCOUNTER 2022-10-27 12:58 | Outpatient (REF) | payer MEDICAID, SELFPAY ==
[2022-10-27 15:26] LABS: Anion Gap 11.5 mmol/L (3-11); BUN 14 mg/dL (7-18); CO2 26.5 mmol/L (21.0-32.0); CREATININE 1.1 mg/dL (0.70-1.30); Calcium 8.9 mg/dL (8.5-10.1); Chloride 105 mmol/L (98-107); Estimated GFR 79.28 (mL/min/1.73m2); Glucose 148 mg/dL (74-106); Potassium 3.8 mmol/L (3.5-5.1); Sodium 143 mmol/L (136-145)
== END 2022-10-27 12:59 | disposition home or self-care (01) ==
LOC: LBN 12:58
PROVIDERS: Visit Provider Physician Assistant Medical
DX: E11.9 Type 2 diabetes mellitus without complications (principal)
CPT/HCPCS: 80048

== ENCOUNTER 2023-09-29 10:07 | Outpatient (REF) | payer MEDICAID, SELFPAY ==
[2023-09-29 17:08] LABS: Abs Immature Grans 0.02 10^3/uL (0.0-0.06); Absolute Basophil Count 0.04 10^3/uL (0.0-0.2); Absolute Eosinophil Count 0.29 10^3/uL (0.0-0.7); Absolute Lymphocyte Count 1.83 10^3/uL (1.2-3.4); Absolute Monocyte Count 0.68 10^3/uL (0.1-0.8); Absolute Neutrophil Count 4.34 10^3/uL (1.2-6.7); Basophils % 0.6 %; HCT 46.1 % (40.0-50.0); HGB 15.2 g/dL (13.5-17.5); Immature Grans % 0.3 %; Lymphocytes % 25.4 %; MCH 31.5 pg (27.0-33.0); MCV 96 fL (80-95); Monocytes % 9.4 %; Neutrophils % 60.3 %; RBC 4.82 10^6/uL (4.36-5.78); RDW 13.2 % (11.8-14.1); RDW-SD 46.5 fL
[2023-09-29 17:39] LABS: ALT 23 U/L (16-63); AST 16 U/L (15-37); Albumin 3.7 g/dL (3.4-5.0); Alkaline Phosphatase 61 U/L (46-116); Anion Gap 9.7 mmol/L (3-11); BUN 19 mg/dL (7-18); Bilirubin, Total 0.28 mg/dL (0.2-1.0); CO2 26.3 mmol/L (21.0-32.0); CREATININE 1.2 mg/dL (0.70-1.30); Calcium 8.2 mg/dL (8.5-10.1); Calculated LDL 100 mg/dL (<100); Chloride 108 mmol/L (98-107); Cholesterol 161 mg/dL (<200); Estimated GFR 70.98 (mL/min/1.73m2); Glucose 133 mg/dL (74-106); HDL Cholesterol 48 mg/dL (40-60); Potassium 4.2 mmol/L (3.5-5.1); Sodium 144 mmol/L (136-145); Total Protein 7.2 g/dL (6.4-8.2); Triglyceride 69 mg/dL (<150); Vitamin D 25 Total 20.5 ng/mL (30-100)
[2023-09-29 18:20] LABS: Platelet Count 107 10^3/uL (130-400)
== END 2023-09-29 10:08 | disposition home or self-care (01) ==
LOC: NCHCN 10:07
PROVIDERS: Visit Provider Nurse Practitioner Family
DX: R79.89 Other specified abnormal findings of blood chemistry (principal); E55.9 Vitamin D deficiency, unspecified; Z13.220 Encounter for screening for lipoid disorders; Z13.0 Encounter for screening for diseases of the blood and blood-forming organs and certain disorders involving the immune mechanism; Z13.228 Encounter for screening for other metabolic disorders; Z00.00 Encounter for general adult medical examination without abnormal findings
CPT/HCPCS: 80053; 80061; 82306; 85025

== ENCOUNTER 2023-12-15 01:15 | Outpatient (CLI) | payer MEDICAID, SELFPAY ==
--- NOTE | 2023-12-15 14:30 | DI.US_ITS ---
APPROVED REPORT EXAM: Comprehensive 2D, Doppler, and color-flow Echocardiogram Patient Location: [facility] Clinical Marketer: Nasim Herman RDCS (AE) Indications: Afib Other Information Study Quality: Poor. Technically limited study due to body habitus. Conclusion Technically difficult and very suboptimal study Left ventricular wall thickness and chamber size are normal. Ejection fraction is estimated to be 50 %. Wall motion cannot be accurately assessed. Patient is in atrial fibrillation with [id number] v ariation Normal right ventricular size and function Both atria are mildly enlarged Within the limits of the study no significant valvular disease is identified Wall motion Left Ventricle The left ventricle is normal size. Left ventricular systolic function is borderline There is normal l eft ventricular wall thickness. Segmental wall motion cannot be assessed There is no ventricular sept al defect visualized. LVEF is 50%. Right Ventricle The right ventricle is normal size. The right ventricular systolic function is normal. Atria Left atrium is mildly dilated. Right atrium is mildly dilated. The interatrial septum is intact with no evidence for an atrial septal defect. Aortic Valve The aortic valve is normal in structure. Aortic valve is trileaflet. There is no aortic valvular sten osis. No aortic regurgitation is present. Mitral Valve The mitral valve is normal in structure. No evidence of mitral valve stenosis. Trace to mild mitral r egurgitation. Tricuspid Valve The tricuspid valve is normal in structure. There is no tricuspid valve stenosis. Trace tricuspid reg urgitation. Unable to assess PA pressure. Pulmonic Valve The pulmonary valve is normal in structure. There is no pulmonic valvular stenosis. There is no pulmo mikaela valvular regurgitation. Great Vessels The aortic root is normal in size. The ascending aorta is normal in size. Aortic arch is normal in ca liber. IVC is normal in size and collapses >50% with inspiration. Pericardium There is no pericardial effusion. 2D Dimensions IVSD d PLAX 0.73 cm M: 0.6-1.2 Ao Root d 3.41 cm M: 3.1 - 3.7 LVPW d PLAX 0.67 cm M: 0.6 - 1.2 Ao Asc Diam d 3.25 cm M: 2.6 - 3.4 LVID d PLAX 4.80 cm M: 4.2 - 5.8 LVDs 3.74 cm M: 2.5 - 4.0 LV EF Teichholz 44.7 % FS 22.18 % LV EDV (Teich) 107.6 mL LV ESV (Teich) 59.5 mL Stroke Vol Index (Teich) 21.01 M-Mode TAPSE 1.33 cm (M/F) >1.7 Auto EF LV EDV A4C 72.5 mL LV EDV A2C 78.7 mL LV EDV BP 75.5 mL LV ESV A4C 43.8 mL LV ESV A2C 45.1 mL LV ESV BP 45.0 mL LVEF(%) A4C 39.7 % LVEF(%) A2C 42.7 % LVEF(%) BP 40.4 % LV SV A4C 28.8 ml LV SV A2C 33.6 ml LV SV BP 30.5 ml LV CO A4C 4.6 L/min LV CO A2C 5.0 L/min LV CO BP 4.8 L/min HR A4C 160.01 BPM HR A2C 150.00 BPM LV EDV Index (BP) LA Volume LA Length A4C 5.1 cm LA Length A2C 5.8 cm LA Area A4C s 16.24 cm2 LA Area A2C s 23.47 cm2 LA Vol A4C A-L 43.82 mL LA Vol A2C A-L 80.16 mL LA Vol Biplane A-L 63.3 mL LA Vol/BSA A4C A-L LA Vol/BSA A2C A-L LA Vol/BSA BP A-L 27.7 mL/m2 LA Vol A4C MOD 39.8 mL LA Vol A2C MOD 75.5 mL LA Vol BP MOD 58.0 mL RA Volume RA Area A4C 12.0 cm2 RA ESV A4C (A-L) 25.1mL RA Vol/BSA A4C A-L RA Length A4C 4.8 cm RA ESV A4C (MOD) 23.9mL LV Diastology MV E' medial 0.130 (>0.07 m/s) MV E Vmax 0.96 (0.4-1.3 m/s) MV E' lateral 0.170 (>0.1 m/s) Aortic Valve AoV Vmax 0.87 m/s LVOT Vmax 0.79 m/s AoV Peak Grad 3.0 mmHg LVOT Peak Grad 2.5 mmHg AoV Area (Vmax) 2.66 cm2 LVOT VTI 0.152 m AoV VTI 0.169 m LVOT Mean Grad 1.2 mmHg AoV Mean Greg. 0.70 m/s LVOT SV 44.40 mL AoV Mean Grad 2.1 mmHg LVOT Diam s 1.90 cm AoV Area (VTI) 2.63 cm2 AV Regurg Peak Gr. 2.99 mmHg Velocity Ratio 0.91 Mitral Valve MV Vmax TIPS 0.79 m/s MV Mean Grad 0.9 (<2mmHg) MV VTI 0.162 m
== END 2023-12-15 01:35 ==
PROVIDERS: Visit Provider Nurse Practitioner Family
DX: I48.91 Unspecified atrial fibrillation (principal)
CPT/HCPCS: 93306

== ENCOUNTER 2024-01-10 08:22 | Outpatient (CLI) | payer MEDICAID, SELFPAY ==
--- NOTE | 2024-01-10 08:15 | RT.EKG_ITS ---
APPROVED REPORT Exam: Resting ECG Reason for Exam: afib Patient Location: O HR:125 bpm ECG Measurements Heart Rate 125 AXIS ND [id number] P [id number] QRSd 78 QRS 56 QT 350 T 36 QTc 505 Conclusion Atrial fibrillation...V-rate 90-146, irreg A-activity Low voltage, extremity leads...all extremity leads <0.5mV
== END 2024-01-10 08:23 | disposition home or self-care (01) ==
LOC: DI.CARD 08:23
PROVIDERS: Visit Provider Internal Medicine Cardiovascular Disease
DX: I48.91 Unspecified atrial fibrillation (principal)
CPT/HCPCS: 93010

== ENCOUNTER 2024-01-20 00:42 | Outpatient (CLI) | payer MEDICAID, SELFPAY ==
--- NOTE | 2024-01-20 13:03 | DI.CTLCSR_ITS ---
Exam(s) CT CHEST LUNG CANCER SCREEN EXAM: CT CHEST LUNG CANCER SCREEN CLINICAL HISTORY: NICOTINE DEPENDENCE F17.210 TECHNIQUE: Imaging Protocol: Axial computed tomography images with coronal and sagittal reformatted images were created and reviewed. Computer aided detection (CAD) was utilized. COMPARISON: CT CT CHEST WO from 10/11/2022 FINDINGS: Tracheobronchial tree: Patent where visualized. No bronchiectasis. Pulmonary parenchyma: No consolidation or dominant measurable mass. Scarring or atelectasis is seen i n the right middle and right lower lobes. No focal consolidating infiltrates are present. Lung Nodules: None. Mediastinum and Krissy: No dominant adenopathy or fluid collection. The esophagus is unremarkable. Lymph nodes: Unremarkable. Pleura: No effusion or pneumothorax. Heart: The heart is not dilated. Mild coronary artery calcification. No pericardial effusion. Aorta: Thoracic aorta non-dilated.Atherosclerotic calcification is present. Upper abdomen: Multiple hepatic cysts are again seen. Soft Tissues: Unremarkable. Bones: Within normal limits. IMPRESSION: No suspicious pulmonary nodules. Lung RADS Cat 1 - Negative: No nodules and definitely benign nodules Lung-RADS 1.0 CATEGORIES: Category 0 - Prior chest CT exam(s) being located for comparison. Category 1 - Annual screening in 12 months. No nodules or definitely benign nodules. Category 2 - Annual screening in 12 months. Benign appearance. Nodules with low likelihood of becomin g active cancer. Category 3 - 6-month follow-up. Probably benign. Short-term follow-up suggested. Nodules with low lik elihood of becoming active cancer. Category 4A - 3-month follow-up and CT/PET if >8 mm in size. Suspicious finding. Findings which requi re additional testing. Category 4B - Findings which require additional testing and tissue sampling. Suspicious finding. Category 4X - Category 3 or 4 nodules with additional features or imaging findings that increases the suspicion of malignancy. Modifier S- Potentially clinically significant finding. (Non lung cancer) RADIATION DOSE DELIVERED: 98.12mGy.cm Total DLP 98.12mGy.cmTotal DLP DATA REPOSITORY: All CT scans at this facility are submitted to the National Radiology Data Registry (NRDR) Dose Index Registry (DIR) with the [employer] (ACR). RADIATION OPTIMIZATION: All CT scans at this facility use at least one of these dose optimization te chniques: automated exposure control; mA and/or kV adjustment per patient size (includes targeted exa ms where dose is matched to clinical indication); or iterative reconstruction.
== END 2024-01-20 01:02 ==
LOC: DI 00:43
PROVIDERS: Visit Provider Nurse Practitioner Family
DX: Z12.2 Encounter for screening for malignant neoplasm of respiratory organs (principal); F17.210 Nicotine dependence, cigarettes, uncomplicated
CPT/HCPCS: 71271

== ENCOUNTER 2024-02-16 13:49 | Outpatient (REF) | payer MEDICAID, SELFPAY ==
[2024-02-16 15:53] LABS: HCT 45.5 % (40.0-50.0); HGB 14.9 g/dL (13.5-17.5); MCH 31.4 pg (27.0-33.0); MCHC 32.7 % (32.0-36.0); MCV 96 fL (80-95); RBC 4.75 10^6/uL (4.36-5.78); RDW 13.1 % (11.8-14.1); RDW-SD 46.6 fL; WBC 7.95 10^3/uL (4.4-10.8)
[2024-02-16 16:21] LABS: ALT 22 U/L (16-63); AST 33 U/L (15-37); Albumin 3.9 g/dL (3.4-5.0); Alkaline Phosphatase 61 U/L (46-116); Anion Gap 8.7 mmol/L (3-11); BUN 12 mg/dL (7-18); Bilirubin, Total 0.59 mg/dL (0.2-1.0); CO2 26.3 mmol/L (21.0-32.0); CREATININE 1.3 mg/dL (0.70-1.30); Calcium 9.2 mg/dL (8.5-10.1); Chloride 107 mmol/L (98-107); Estimated GFR 64.07 (mL/min/1.73m2); GGT 22 U/L (15-85); Glucose 118 mg/dL (74-106); Potassium 5.3 mmol/L (3.5-5.1); Sodium 142 mmol/L (136-145); Total Protein 7.6 g/dL (6.4-8.2)
[2024-02-16 16:24] LABS: Hemoglobin A1C 6.2 % (<5.7)
[2024-02-16 16:55] LABS: Vitamin D 25 Total 22.8 ng/mL (30-100)
[2024-02-17 09:02] LABS: AFP Tumor Marker <2.5 ng/mL (<8.1)
[2024-02-17 09:28] LABS: Hepatitis C Ab w Rflx HCV PCR Reactive (Negative)
[2024-02-20 14:17] LABS: HCV RNA Qualitative Undetected (Undetected)
== END 2024-02-16 13:50 | disposition home or self-care (01) ==
LOC: NCHCN 13:49
PROVIDERS: Visit Provider Nurse Practitioner Family
DX: Z00.00 Encounter for general adult medical examination without abnormal findings (principal)
CPT/HCPCS: 80053; 82306; 85027; 86803; 87522; 82105; 82977; 83036

== ENCOUNTER 2024-04-11 08:56 | Emergency (ER) | payer MEDICAID, SELFPAY ==
[2024-04-11 09:01] VITALS: BP 138/84; PULSE 56; RESP 16; TEMP 36.8; O2SAT 93
--- NOTE | 2024-04-11 09:01 | ED.GENADUL_ITS ---
Discharge Plan Disposition Patient Disposition: Against Medical Advice Discharge Details Clinical Impression: Atrial fibrillation with rapid ventricular response, Pneumonia, Influenza A Primary Care Provider: Tania Schmidt ED Provider: Latesha Brennan Home Meds and New Rx's Prescriptions: New azithromycin 250 mg tablet 250 mg PO DAILY 4 Days Qty: 4 0RF Rx Instructions: start on day 2 of therapy cefpodoxime 200 mg tablet 200 mg PO BID Qty: 10 0RF Rx Instructions: must administer with a meal/food No Action ibuprofen [Advil] 200 mg tablet 600 mg PO BID Discharge Instructions Additional Instructions: You have decided to leave AGAINST MEDICAL ADVICE. Please note that you may have serious complications such as heart attack/stroke, permanent disability, loss of lifestyle, paralysis, or even . You are welcome to return to the emergency department at any time to finish your workup/treatment for atrial fibrillation with rapid ventricular response. You have also been diagnosed with pneumonia. Please take the full course of antibiotics as prescribed. Stay well-hydrated, drinking plenty of fluids throughout the day. Practice deep breathing to help keep your lungs inflated. A referral has been placed for you to have follow-up with cardiology. Please return immediately to emergency care if you develop new chest pain, shortness of breath, dizziness, general unwellness, or if you are very worried and need to be rechecked again immediately. Stand Alone Forms: Work Release Referrals: [facility] [Provider Group] [facility] General Date/Time Provider Initiated Documentation: 04/11/24 08:57 . [facility] Narrative: Prateek is a 58-year-old male with history of A-fib who presents to the emergency department for evaluation of viral symptoms, is concerned that he has dehydration. 2 days ago he sent home from work, has had fatigue, low-grade frontal headache, subjective fever/chills, body aches, congestion, cough productive of clear sputum and shortness of breath associated with cough, nausea, decreased p.o. intake, dark urine with decreased urine output (cannot guess when he last urinated), and frequent diarrhea (too frequent to count). Denies recorded fevers, dizziness, sore throat, ear pain, chest pain, abdominal pains, vomiting, blood in stool or urine. He denies history of lung disease, heart disease other than A-fib, high blood pressure, abdominal diagnoses other than history of appendectomy. He is in the process of quitting smoking. Physical exam reassuring. Prateek appears fatigued, but is alert and oriented, able to answer questions without difficulty. Moist mucous membranes. No oropharyngeal erythema, exudate, or tonsillar hypertrophy. No cervical or submandibular lymphadenopathy. Clear voice. Easy work of breathing, occasional cough. Faint end expiratory wheezes on auscultation. Abdomen is soft, nondistended, nontender palpation with normoactive bowel sounds. DDx includes but is not limited to: Viral illness such as COVID or flu, viral gastroenteritis, pneumonia, dehydration, electrolyte imbalance. Reassuring abdominal exam, no red flags concerning for bowel obstruction or surgical process requiring emergent diagnostic imaging at this time. I independently interpreted the following tests: CMP notable for elevated BUN to creatinine ratio (35:1.3), consistent with prerenal azotemia due to decreased p.o. intake. CBC and magnesium reassuring. While in the emergency department Prateek received IV Zofran, IV fluids for rehydration, and DuoNeb for wheezing. He was able to urinate after receiving fluids, is currently taking p.o. icewater. Chest x-ray remarkable for small opacity in the right lung base. Will treat for community-acquired pneumonia with double coverage due to patient's history of smoking. As he has tolerated cefepime in the past, will treat with cefpodoxime and azithromycin. I did review previous records, including cardiology visit from 01/10/2024. According to Dr. Larsen patient has persistent atrial fibrillation, this has been ongoing now for approximately 2 years. He does not meet the entire coagulation criteria. It was recommended that he use diltiazem for rate control, which she has taken in the past but not consistently. An echo was performed on 12/15/2023, while technically limited it was overall reassuring with EF of 50% and no obvious structural or valvular disease. While resting in the emergency department pt developed A-fib with RVR, heart rate in the 140s to 170s. EKG shows A-fib with rate 162, no changes consistent with acute ischemia. Normal QTc. Prateek denies symptoms, says he is feeling just fine, denies dizziness, chest pain, shortness of breath, nausea, or other discomfort. He does not meet criteria for anticoagulation based on [id number] score of 0. A1c today was performed, 6.2, indicating prediabetes. TSH within normal limits. 20 mg IVP diltiazem given at 1130, heart rate persists in the 140s. He was also given a total of 1 L lactated Ringer's and administered magnesium 2 g. A second dose of diltiazem was ordered, however Prateek says that he wants to leave and does not want to stay for further treatment/workup. He says that he is feeling fine and would like to rest at home instead of receiving further medication. I extensively reviewed AMA instructions and encouraged him to stay for further workup and treatment of A-fib with RVR, which is likely exacerbated by current influenza and pneumonia. 1.? I explained the current situation and condition to the patient. 2.? I explained the recommended treatment for this condition -rate control of A- fib with RVR and further evaluation, including cardiology consult. 3.? I explained the risk of not having the recommended treatment - stroke/AZ/endorgan failure, other serious illness, permanent disability or 4.? The patient understands this information has no questions, and repeated back this information. 5.? The patient states that they need to leave and will return if desired. He says that he will come back if he starts to feel anything (he is currently asymptomatic) 6.? Mental status is lucid and the patient has decision-making capacity. 7.? Patient verbalized understanding of proposed treatment/evaluation and risks associated. He signed paperwork with DEYANIRA Sneed. Workup today remarkable for A-fib with RVR that was resistant to initial dose of diltiazem IV, Influenza A positive, pneumonia, and dehydration. Prescriptions for cefpodoxime and azithromycin have been sent to the pharmacy for treatment of pneumonia. Advised patient that he may return to the emergency department anytime for further evaluation/treatment. Related Data Home Medications ?Medication ?Instructions ?Recorded ?Confirmed azithromycin 250 mg tablet 250 mg PO DAILY 4 days #4 tabs 04/11/24 cefpodoxime 200 mg tablet 200 mg PO BID #10 tabs 04/11/24 ibuprofen 200 mg tablet (Advil) 600 mg PO BID 04/11/24 04/11/24 Previous Rx's ?Medication ?Instructions ?Recorded azithromycin 250 mg tablet 250 mg PO DAILY 4 days #4 tabs 04/11/24 cefpodoxime 200 mg tablet 200 mg PO BID #10 tabs 04/11/24 Allergies Allergy/AdvReac Type Severity Reaction Status Date / Time codeine Allergy Unknown Other (See Verified 04/11/24 09:05 Comment) Latex, Natural Rubber AdvReac Intermediate Hives Verified 04/11/24 09:05 Penicillins AdvReac Intermediate Hives Verified 04/11/24 09:05 General ORIANA: 3 Review of Systems Narrative: See HPI Exam Const General: cooperative, comfortable, no acute distress, well developed and well groomed Nutritional Appearance: average body habitus and well nourished Orientation: oriented x3 HENMT Head: normal to inspection General nose exam: external nose normal Face and sinus: normal facial exam Mouth: oral mucosae normal, lip normal, tongue normal, oropharynx normal and moist mucous membranes Throat: posterior oropharynx normal Neck Neck: normal visual inspection, no lymphadenopathy, no meningeal signs and trachea midline Resp Effort & Inspection: normal respiratory effort and able to speak in complete sentences Auscultation: wheezes expiratory wheezes Cardio Rate: regular rate Rhythm: regular rhythm Pulses: radial pulses present GI Inspection: normal to inspection and non-distended Palpation: soft, not rigid and nontender Neuro General: patient alert, patient oriented x3, tone normal and moves all extremities Medical Decision Making Quality:SDOH Health Related Social Needs: No Data to Display PFSH All Active Problems (Updated 04/11/24 @ 12:24 by Latesha Ponce) Influenza A (Acute) Pneumonia (Acute) Atrial fibrillation with rapid ventricular response (Acute) Dilated aortic root (Acute) Adenopathy, hilar (Acute) Pleural effusion, right (Acute) Nocturnal hypoxia (Acute) Asthma (Chronic) Legionella pneumonia (Acute) Cirrhosis (Chronic) Hematuria (Acute) Proteinuria (Acute) Anemia (Chronic) Leukocytosis (Acute) Depression (Chronic) GERD (gastroesophageal reflux disease) (Chronic) Hypokalemia (Acute) Type 2 diabetes mellitus (Chronic) Aspiration pneumonia (Acute) Sepsis (Acute) Atrial fibrillation with rapid ventricular response (Acute) Pneumonia (Acute) Medical History Hepatitis C Empyema s/p chest tubes, VATS, decortication UVC 03/04 - all cultures without growth Surgical History S/P right inguinal hernia repair S/P appendectomy H/O hand surgery bilateral Social History Smoking/Tobacco Use Status: Current every day Tobacco Type: cigarettes Smoking packs per day: 1 Smoking cigarettes per day: 20.0 Years smoked: 46 Smoking pack- years: 46.00 Counseling given: provider counseling, support medications, counseling >3 minutes and patient declined Smoking risk assessment performed?: Yes Alcohol Intake: former Drug use: Occasionally Substance use type: marijuana Housing: house Do you feel safe at home: Yes Do you feel safe in your relationship?: Yes
--- NOTE | 2024-04-11 09:56 | DI.RAD_ITS ---
Exam(s) XR CHEST 2V PA LATERAL EXAM: XR CHEST 2V PA LATERAL CLINICAL HISTORY: cough, viral sx, wheeze c/o PNA TECHNIQUE: 2D digital imaging was performed of the chest. Two images were obtained. PA and lateral views were obtained. COMPARISON: CR,XR XR PORTABLE CHEST AP from 10/09/2022 CR,XR XR CHEST 2V PA LATERAL from 10/09/[address] CHEST LUNG CANCER SCREEN from 01/20/2024 FINDINGS: MEDIASTINUM: Normal. HEART: Normal. PULMONARY VASCULATURE: Normal. LUNGS: There is a small opacity in the right lung base. This is a best appreciated on the AP view. This may represent a developing pneumonia. The lungs are otherwise clear. The lungs are hyperinflat ed with flattened diaphragms suggesting underlying COPD. PLEURAL SPACE: No pleural effusion or pneumothorax. There is again seen blunting of the right costoph renic angle suggesting scarring. BONE:Within normal limits for the patient's age. OTHER FINDINGS:Normal. IMPRESSION: Small opacity in the right lung base. Differential considerations include small developing infiltrat e, pulmonary nodule or summation of shadows. A repeat examination in 1 month is recommended to docum ent resolution and to exclude other etiologies. If the finding persists, a CT scan should be conside red for further evaluation. DATA REPOSITORY: RADIATION DOSE DELIVERED:
[2024-04-11 09:57] LABS: Abs Immature Grans 0.02 10^3/uL (0.0-0.06); Absolute Basophil Count 0.02 10^3/uL (0.0-0.2); Absolute Eosinophil Count 0.01 10^3/uL (0.0-0.7); Absolute Lymphocyte Count 0.95 10^3/uL (1.2-3.4); Absolute Monocyte Count 0.71 10^3/uL (0.1-0.8); Absolute Neutrophil Count 5.35 10^3/uL (1.2-6.7); Basophils % 0.3 %; Eosinophils % 0.1 %; HCT 50.5 % (40.0-50.0); HGB 16.9 g/dL (13.5-17.5); Immature Grans % 0.3 %; Lymphocytes % 13.5 %; MCH 31.6 pg (27.0-33.0); MCHC 33.5 % (32.0-36.0); MCV 94 fL (80-95); MPV 14.3 fL (8.0-11.0); Monocytes % 10.1 %; Neutrophils % 75.7 %; RBC 5.35 10^6/uL (4.36-5.78); RDW-SD 45.2 fL; WBC 7.06 10^3/uL (4.4-10.8)
[2024-04-11 10:00] LABS: ALT 54 U/L (16-63); AST 64 U/L (15-37); Albumin 3.3 g/dL (3.4-5.0); Alkaline Phosphatase 47 U/L (46-116); Anion Gap 6.8 mmol/L (3-11); BUN 35 mg/dL (7-18); Bilirubin, Total 0.41 mg/dL (0.2-1.0); CO2 27.2 mmol/L (21.0-32.0); CREATININE 1.3 mg/dL (0.70-1.30); Calcium 8.7 mg/dL (8.5-10.1); Chloride 106 mmol/L (98-107); Estimated GFR 64.07 (mL/min/1.73m2); Glucose 136 mg/dL (74-106); Magnesium 1.9 mg/dL (1.8-2.4); Sodium 140 mmol/L (136-145); Total Protein 7.7 g/dL (6.4-8.2)
[2024-04-11] MEDS: Lactated Ringers 500 ML IV (10:01)
[2024-04-11] MEDS: Albuterol/Ipratropium 3 ML UPD VIAL UPD (10:01)
[2024-04-11] MEDS: Ondansetron 4 MG/2 ML VIAL IVP (10:02)
[2024-04-11 10:13] LABS: Platelet Count 90 10^3/uL (130-400)
--- NOTE | 2024-04-11 10:15 | RT.EKG_ITS ---
APPROVED REPORT Exam: Resting ECG Reason for Exam: screening for Qtc Patient Location: E HR:162 bpm ECG Measurements Heart Rate 162 AXIS ID [id number] P [id number] QRSd 76 QRS 82 QT 266 T 269 QTc 437 Conclusion Atrial fibrillation with RVR, rate 162 Rate-related ST changes, no STEMI Compared to priors, rate has increased
[2024-04-11 11:01] LABS: Bilirubin Small (Negative); Blood Small (Negative); Clarity Clear (Clear); Glucose Negative (Negative); Ketones Negative (Negative); Leukocyte Esterase Negative (Negative); Nitrite Negative (Negative); Urobilinogen 0.2 mg/dL (Up to 0.2)
[2024-04-11 11:12] VITALS: PULSE 168
[2024-04-11 11:16] VITALS: BP 114/83; PULSE 116; PULSE 159; RESP 22; O2SAT 92
[2024-04-11 11:16] LABS: Bacteria Few HPF (Negative); Epithelial Cells Rare HPF (Negative); Other Cells Negative (Negative)
[2024-04-11 11:17] LABS: C & S Indicated? No; Casts 3-5 Fine Granular LPF (Negative); Crystals Negative HPF (Negative); Mucus Heavy (Negative)
[2024-04-11] MEDS: MAGNESIUM SULFATE 2 GM/50 ML BAG IV_INF (11:29)
[2024-04-11 11:34] VITALS: BP 121/58; PULSE 175
[2024-04-11] MEDS: dilTIAZem 25 MG/5 ML VIAL 20 MG IVP (11:34)
[2024-04-11 11:47] LABS: Lab Add On Test DONE
[2024-04-11 11:59] LABS: Hemoglobin A1C 6.2 % (<5.7)
[2024-04-11 12:09] LABS: TSH (W/Ref FT4) 2.68 uIU/mL (0.36-3.74)
[2024-04-11 12:44] VITALS: BP 116/80; PULSE 160; RESP 20; O2SAT 99
--- NOTE | 2024-04-11 12:47 | NUR.NOTE ---
Nursing Note: Pt expressed desire to leave AMA. Spoke with provider AEG MELTER CLERK. Pt is alert and oriented x3. IVs removed, pt ambulated out of department.
== END 2024-04-11 12:49 | disposition left against medical advice (07) ==
PROVIDERS: Emergency Provider Nurse Practitioner Family; PCP Nurse Practitioner Family
DX: I48.91 Unspecified atrial fibrillation (principal); J18.9 Pneumonia, unspecified organism; J10.1 Influenza due to other identified influenza virus with other respiratory manifestations; R06.2 Wheezing; Z53.21 Procedure and treatment not carried out due to patient leaving prior to being seen by health care provider
CPT/HCPCS: 80053; 87426; 93005; 94640; 96361; 96365; 96366; 96375; 99285; 71046; 81003; 81015; 83036; 83735; 84443; 85025; 93010; J2405; J3475; J7620

== ENCOUNTER 2024-05-23 13:03 | Outpatient (REF) | payer MEDICAID, SELFPAY | END 2024-05-23 13:04 | disposition home or self-care (01) | LOC: LBN 13:03 | PROVIDERS: PCP Nurse Practitioner Family; Visit Provider Physician Assistant Medical | DX: J02.9 Acute pharyngitis, unspecified (principal) | CPT/HCPCS: 87070 ==

== ENCOUNTER 2024-11-30 15:03 | Outpatient (REF) | payer MEDICAID, SELFPAY ==
[2024-12-03 11:55] LABS: Chlamydia Result Negative (Negative); GC Result Negative (Negative)
== END 2024-11-30 15:04 | disposition home or self-care (01) ==
LOC: NCHCN 15:03
PROVIDERS: PCP Nurse Practitioner Family; Visit Provider Nurse Practitioner Family
DX: Z11.3 Encounter for screening for infections with a predominantly sexual mode of transmission (principal)
CPT/HCPCS: 87491; 87591

== ENCOUNTER 2024-12-25 18:13 | Outpatient (REF) | payer MEDICAID, SELFPAY ==
[2024-12-27 12:49] LABS: Chlamydia Result Negative (Negative); GC Result Negative (Negative)
== END 2024-12-25 18:14 | disposition home or self-care (01) ==
LOC: LBN 18:13
PROVIDERS: PCP Nurse Practitioner Family; Visit Provider Nurse Practitioner Family
DX: Z11.3 Encounter for screening for infections with a predominantly sexual mode of transmission (principal)
CPT/HCPCS: 87491; 87591